=== PATIENT | male | born 1975 | race Caucasian/White ===

== ENCOUNTER 2016-11-16 09:41 | Outpatient (CLI) ==
[2015-09-03 14:43] VITALS: BMI 23.1
--- NOTE | 2016-11-16 10:24 | DI ---
EXAM: Five views of the lumbar spine. History: Lower back pain. Findings: No acute fracture or subluxation. Moderate to severe disc space narrowing at L4-L5 with endplate sclerosis and prominent anterior osteophytes. Mild to moderate disc space narrowing seen e lsewhere. Moderate facet hypertrophy at L5-S1. Scattered colonic stool. Impression: No acute osseous abnormality of the lumbar spine. Moderate to severe degenerative disc disease at L4-L5.
--- NOTE | 2016-11-16 10:38 | DI ---
EXAM: Radiographs, left foot HISTORY: Left foot pain. Bump on plantar arch. COMPARISON: 09/03/2015. TECHNIQUE: Three views. FINDINGS: Bone mineralization is normal. There is no acute fracture or dislocation. Small cortica dragan ossific fragment adjacent to the tip of the medial malleolus could relate to remote injury. The joint spaces are maintained. Small retrocalcaneal spur noted at the Achilles tendon insertion. No focal soft tissue abnormality is seen. IMPRESSION: 1. No abnormality in the region of the plantar arch. Correlate with MRI as warranted. 2. Small retrocalcaneal spur.
== END 2016-11-16 09:42 | disposition home or self-care (01) ==
LOC: RAD 09:41
PROVIDERS: ATTEND Nurse Practitioner Family
DX: M79.672 Pain in left foot (principal); M54.5 Low back pain

== ENCOUNTER 2017-01-10 11:51 | Outpatient (CLI) ==
[2015-09-03 14:43] VITALS: BMI 23.1
[2017-01-10 13:40] LABS: BASOPHILS % (AUTO) 0.6 % (0.0-3.0); EOSINOPHILS # (AUTO) 0.2 K/ul (0.0-0.7); EOSINOPHILS % (AUTO) 3.8 % (0.0-7.0); HEMATOCRIT 36.4 % (42.0-52.0); HEMOGLOBIN 12.1 g/dl (14.0-18.0); IMMATURE GRANULOCYTE % (AUTO) 0.2 % (0.0-5.0); LYMPHOCYTES # (AUTO) 1.7 K/uL (0.60-3.4); LYMPHOCYTES % (AUTO) 36.8 (10.0-50.0); MEAN CORPUSCULAR HEMOGLOBIN 29.9 pg (27.0-31.0); MEAN CORPUSCULAR HGB CONC 33.2 (31.8-35.4); MEAN CORPUSCULAR VOLUME 89.9 fl (80.0-94.0); MONOCYTES # (AUTO) 0.4 K/uL (0.4-2.0); MONOCYTES % (AUTO) 9.3 (0-10); NEUTROPHILS # (AUTO) 2.3 K/ul (2.0-6.9); NEUTROPHILS % (AUTO) 49.3; PLATELET COUNT 189 10^3/uL (140-440); RED BLOOD COUNT 4.05 10^6/ul (4.70-6.10); WHITE BLOOD COUNT 4.73 K/ul (4.2-10.2)
[2017-01-10 14:12] LABS: ALBUMIN 4.3 g/dL (3.4-5.0); ALBUMIN/GLOBULIN RATIO 1.65; ANION GAP 13.1; BILIRUBIN,TOTAL 0.59 mg/dL (0.00-1.20); BUN/CREATININE RATIO 14.28; CALCIUM 9.4 mg/dL (8.2-10.2); CREATININE 0.98 mg/dL (0.60-1.10); POTASSIUM 4.1 mmol/L (3.5-5.1); TOTAL PROTEIN 6.9 g/dL (6.4-8.2)
== END 2017-01-10 11:52 | disposition home or self-care (01) ==
LOC: LAB 11:51
PROVIDERS: ATTEND Nurse Practitioner Family
DX: M51.36 Other intervertebral disc degeneration, lumbar region (principal); M25.50 Pain in unspecified joint
CPT/HCPCS: 36415; 80053; 85025; 86038

== ENCOUNTER 2017-05-29 13:02 | Outpatient (CLI) ==
[2015-09-03 14:43] VITALS: BMI 23.1
[2017-05-29 13:12] LABS: BASOPHILS % (AUTO) 0.5 % (0.0-3.0); EOSINOPHILS # (AUTO) 0.1 K/ul (0.0-0.7); HEMATOCRIT 34.1 % (42.0-52.0); HEMOGLOBIN 11.3 g/dl (14.0-18.0); LYMPHOCYTES # (AUTO) 1.3 K/uL (0.60-3.4); MEAN CORPUSCULAR HEMOGLOBIN 29.9 pg (27.0-31.0); MEAN CORPUSCULAR HGB CONC 33.1 (31.8-35.4); MEAN CORPUSCULAR VOLUME 90.2 fl (80.0-94.0); MONOCYTES # (AUTO) 0.3 K/uL (0.4-2.0); MONOCYTES % (AUTO) 8.1 (0-10); NEUTROPHILS # (AUTO) 2.2 K/ul (2.0-6.9); NEUTROPHILS % (AUTO) 56.4; PLATELET COUNT 177 10^3/uL (140-440); RED BLOOD COUNT 3.78 10^6/ul (4.70-6.10); WHITE BLOOD COUNT 3.97 K/ul (4.2-10.2)
[2017-05-29 13:27] LABS: ALBUMIN/GLOBULIN RATIO 1.21; ANION GAP 12.4; BILIRUBIN,TOTAL 0.61 mg/dL (0.00-1.20); BUN/CREATININE RATIO 11.49; CHOL/HDL RATIO 3.3 (4.5-6.4); CREATININE 0.87 mg/dL (0.60-1.10); POTASSIUM 4.4 mmol/L (3.5-5.1); TOTAL PROTEIN 7.3 g/dL (6.4-8.2)
== END 2017-05-29 13:03 | disposition home or self-care (01) ==
LOC: LAB 13:02
PROVIDERS: ATTEND Nurse Practitioner Family
DX: M54.9 Dorsalgia, unspecified (principal); G89.29 Other chronic pain; Z79.899 Other long term (current) drug therapy
CPT/HCPCS: 36415; 80053; 80061; 85025

== ENCOUNTER 2017-05-31 10:38 | Outpatient (CLI) ==
[2015-09-03 14:43] VITALS: BMI 23.1
[2017-05-31 11:12] LABS: IMMATURE RETIC FRACTION 4.3; RETICULOCYTE % 0.7 %
[2017-05-31 11:57] LABS: FERRITIN 81.56 ng/mL (21.81-274.66); FOLATE 18.2 ng/mL (3.1-20.5)
== END 2017-05-31 10:39 | disposition home or self-care (01) ==
LOC: LAB 10:38
PROVIDERS: ATTEND Nurse Practitioner Family
DX: D64.9 Anemia, unspecified (principal)
CPT/HCPCS: 36415; 82607; 82728; 82746; 83540; 83550; 84466; 85045

== ENCOUNTER 2017-06-30 15:18 | Inpatient (IN) | payer OTHER ==
[2017-06-30 15:22] VITALS: BMI 22.5
[2017-06-30] MEDS ORDERED: SODIUM CHLORIDE 1,000 ML IV STA (15:26)
[2017-06-30] MEDS ORDERED: ZOFRAN 4 MG/2 ML IVP STA (15:26)
--- NOTE | 2017-06-30 16:42 | CT ---
EXAM: CT chest without contrast HISTORY: Cough COMPARISON: CT chest and 03/31/2014 TECHNIQUE: Serial axial images of the chest were obtained from the lung apices to the upper abdomen without contrast. These were viewed in multiple planes. FINDINGS: The thyroid is normal. The visualized vessels are unremarkable without aneurysm or stenos is. The heart is normal in size without pericardial effusion. There are no pathologically enlarged mediastinal or hilar lymph nodes. There is no pneumothorax or pleural effusion. There is mild right basilar atelectasis. There is no nodule, mass or ground-glass. The airways are patent. Soft tissues in the upper abdomen are unremarkable. There is degenerative disease of the spine. IMPRESSION: No acute cardiopulmonary process to account for patient's symptoms with minimal bibasilar atelectasis .
--- NOTE | 2017-06-30 16:46 | ED.PDOC ---
General ED Provider: Dr. ESTELITA MEDEIROS Chief Complaint: Nausea/Vomiting Stated Complaint: ABDOMINAL PAIN LEFT SIDED Time Seen by Physician: 15:30 (SEEN WITH STAFF AT ALL TIMES ) Mode of Arrival: Walk-In Information Source: Patient Exam Limitations: No limitations [facility] Nursing and Triage Documentation Reviewed and Agree: Yes (SEEN WITH MOHAN) GI Complaint Exam - Abdominal Pain Complaint/Exam Onset: Gradual Duration: CHRONIC PAIN Symptoms Are: Still present Timing: Constant Initial Severity: Moderate Current Severity: Mild Location of Pain: LLQ Radiates To: Reports: LLQ Character: Reports: Aching Aggravating: Reports: None Alleviating: Reports: None Associated Signs and Symptoms: Denies: Diaphoresis, Fever, Cough, Chest pain, Dizziness, Back pain, Constipation, Blood in stool, Dysuria, Urinary frequency, Decreased urine output, Decreased appetite, Discharge, Nausea, Vomiting, Diarrhea, Decreased activity Related History: Reports: Similar episode AAA Risk Factors: Reports: None Cardiac Risk Factors: Reports: None Testicular Torsion Risk Factors: Reports: None Surgical Obstruction Risk Factors: Reports: None Related Surgical History: Reports: None Abdominal Findings: Present: None Differential Diagnoses: Appendicitis, Bowel Obstruction, Constipation, Diverticulitis, Gastroenteritis, UTI Review of Systems - Review Of Systems Constitutional: Reports: No symptoms Eyes: Reports: No symptoms Ears, Nose, Mouth, Throat: Reports: No symptoms Respiratory: Reports: No symptoms Cardiac: Reports: No symptoms GI: Reports: Abdominal pain : Reports: No symptoms Musculoskeletal: Reports: No symptoms Skin: Reports: No symptoms Neurological: Reports: No symptoms Endocrine: Reports: No symptoms Hematologic/Lymphatic: Reports: No symptoms All Other Systems: Reviewed and Negative Past Medical History - Past Medical History Previously Healthy: Yes Endocrine: Reports: None Cardiovascular: Reports: None Respiratory: Reports: None Hematological: Reports: None Gastrointestinal: Reports: Other (Colitis ) Genitourinary: Reports: None Neuro/Psych: Reports: None Musculoskeletal: Reports: Back Pain Cancer: Reports: None - Surgical History General Surgical History: Reports: Back Surgery (x2), Other (NECK SURGERY X 2, R HAND SURGERY X 2) - Family History Family History: Reports: None - Social History Smoking Status: Former smoker, Light tobacco smoker Hx Substance Use: No Alcohol Screening: None - Immunizations Tetanus Shot up to Date: No Physical Exam - Physical Exam Appearance: Well-appearing, No pain distress, Well-nourished Eyes: FRANSISCA, EOMI, Conjunctiva clear ENT: Ears normal, Nose normal, Oropharynx normal Respiratory: Airway patent, Breath sounds clear, Breath sounds equal, Respirations nonlabored Cardiovascular: RRR, Pulses normal, No rub, No murmur GI/: Soft, Nontender, No masses, Bowel sounds normal, No Organomegaly Musculoskeletal: Normal strength, ROM intact, No edema, No calf tenderness Skin: Warm, Dry, Normal color Neurological: Sensation intact, Motor intact, Reflexes intact, Cranial nerves intact, Alert, Oriented Psychiatric: Affect appropriate, Mood appropriate Interpretation - Radiology Interpretation Radiology Interpretation By: Radiologist Radiology Results: Positive (OVARIAN CYSTS) Critical Care Note - Critical Care Note Total Time (mins): 0 Course - Course Hematology/Chemistry: 06/30/17 15:43 06/30/17 15:43 Orders, Labs, Meds: Lab Review 06/30/17 12 15:43 15:43 WBC 5.77 RBC 3.72 L Hgb 11.0 L Hct 32.4 L MCV 87.1 MCH 29.6 MCHC 34.0 RDW Coeff of Manan 12.3 Plt Count 175 Immature Gran % (Auto) 0.3 Neut % (Auto) 67.7 Lymph % (Auto) 24.8 [place] % (Auto) 5.5 Eos % (Auto) 1.4 Baso % (Auto) 0.3 Immature Gran # (Auto) 0.0 Neut # 3.9 Lymph # 1.4 [place] # 0.3 L Eos # 0.1 Baso # 0.0 Sodium 141 Potassium 3.6 Chloride 105 Carbon Dioxide 25 Anion Gap 14.6 BUN 14 Creatinine 0.85 Estimated GFR (MDRD) 98.00 BUN/Creatinine Ratio 16.47 Glucose 113 H Calcium 9.5 Total Bilirubin 0.56 AST 23 ALT 13 Alkaline Phosphatase 41 L Total Protein 7.0 Albumin 4.0 Globulin 3.0 Albumin/Globulin Ratio 1.33 Orders Category Date Time Status EKG-(ED ONLY) Stat CARDIO 06/30/17 15:26 Completed ED IV/MEDIPORT/POWERPORT .ONCE EMERGENCY 06/30/17 15:25 Active BLOOD CULTURE Stat LAB 06/30/17 16:30 Received CBC W/ AUTO DIFF Stat LAB 06/30/17 15:43 Completed COMPREHENSIVE METABOLIC PANEL Stat LAB 06/30/17 15:43 Completed RAPID FLU A/B Stat LAB 06/30/17 15:42 Ordered URINALYSIS C & S IF INDICATED Stat LAB 06/30/17 15:24 Uncollected 0.9 % Sodium Chloride [Saline Flush] MEDS 06/30/17 15:25 Active 1 syr IVF PRN PRN Ondansetron HCl/Pf [Zofran 4 mg/2 ml] MEDS 06/30/17 15:26 Discontinued 4 mg IVP ONCE STA Sodium Chloride 0.9% [Sodium Chloride] 1,000 ml MEDS 06/30/17 15:[address] ABDOMEN/PELVIS WO CONTRAST Stat RADS 06/30/17 15:[address] CHEST W/O CONTRAST Stat RADS 06/30/17 15:25 Completed Medications Generic Name Dose Route Start Last Admin Trade Name Freq PRN Reason Stop Dose Admin Sodium Chloride 1 syr 06/30/17 15:25 06/30/17 15:53 Saline Flush IVF 1 syr PRN PRN Administration To flush IV Discontinued Medications Generic Name Dose Route Start Last Admin Trade Name Freq PRN Reason Stop Dose Admin Sodium Chloride 1,000 mls @ 1,000 mls/hr 06/30/17 15:26 06/30/17 15:53 Sodium Chloride IV 06/30/17 16:25 1,000 mls/hr BOLUS STA Administration Ondansetron HCl 4 mg 06/30/17 15:26 06/30/17 15:53 Zofran 4 Mg/2 Ml IVP 06/30/17 15:27 4 mg ONCE STA Administration Vital Signs: Temp Pulse Resp BP Pulse Ox 06/30/17 15:18 96.7 F L 47 L 14 114/70 97 Departure - Departure Time of Disposition: 16:47 Disposition: HOME SELF-CARE Discharge Problem: Abdominal pain Qualifiers: Abdominal location: left lower quadrant Qualified Code(s): R10.32 - Left lower quadrant pain Instructions: Ovarian Cyst (ED), Abdominal Pain (ED) Condition: Good Pt referred to PMD for follow-up: Yes Allergies/Adverse Reactions: Allergies No Known Allergies Allergy (Verified 06/30/17 15:21) Home Medications: Ambulatory Orders Diphenhydramine HCl 50 mg PO DAILY 03/31/14 Mesalamine [Pentasa] 1,000 mg PO TID 03/31/14 Multivitamin [Multi Vitamin Daily] 1 each PO DAILY 03/31/14 Orphenadrine Citrate [Norflex] 100 mg PO BID 03/31/14 Oxycodone HCl/Acetaminophen [Oxycodone-Acetaminophen 10-325] 1 each PO QID 03/31 Simethicone 125 mg PO BID 03/31/14 Hydrocodone/Acetaminophen [[place] 10-325 Tablet] 1 each PO Q6HR PRN #12 tablet Diphenhydramine HCl [Benadryl] 25 mg PO DAILY #2 01/10/17 Mesalamine [Pentasa] 500 mg PO QID 01/10/17 Oxycodone HCl/Acetaminophen [Oxycodone-Acetaminophen 10-325] 1 each PO 3-4XD PRN 01/10/17
--- NOTE | 2017-06-30 16:49 | CT ---
EXAM: CT abdomen pelvis without intravenous contrast 06/30/2017. Sagittal and coronal reformatted i mages obtained HISTORY: Abdominal pain COMPARISON: None. FINDINGS: The liver and gallbladder show no acute abnormality. The adrenal glands and kidneys show no acute abnormality. 2 mm nonobstructive nephrolithiasis at the lower pole of the right kidney. The spleen and pancreas show no acute abnormality. There is no evidence of bowel obstruction. The appendix is not visualized. Unremarkable urinary arabella dder. No free air or free fluid. There is multilevel chronic degenerative disc disease. No acute os seous abnormality. IMPRESSION: 1. No urinary or bowel obstruction. 2. Appendix not visualized. 3. No acute inflammatory process identified within the limitation of a noncontrast enhanced examinat ion.
--- NOTE | 2017-06-30 17:23 | ED.PDOC ---
General ED Provider: Dr. ESTELITA MEDEIROS Chief Complaint: Nausea/Vomiting Stated Complaint: NAUSEA, VOMITING , WEAKNESS Time Seen by Physician: 15:20 Mode of Arrival: Walk-In Information Source: Patient Exam Limitations: No limitations [facility] and Triage Documentation Reviewed and Agree: Yes Miscellaneous Complaint Exam - Complex/Multi-System Complaint/Exam Onset/Duration: 1 DAY HISTORY OF WEAKNESS INTERMITTENT VOMITING, Symptoms Are: Still present (NO VOMITING) Episodes Lasting: Seconds Initial Severity: Mild Current Severity: Mild Location of Pain: 0 Pain Radiates to: 0 Character: 0 Aggravatin Alleviatin Associated Signs and Symptoms: Reports: Weakness, Cough, Nausea, Vomiting, Abdominal pain, Decreased oral intake. Denies: Decreased responsiveness, Confusion, Agitation, Dizziness, Syncope, Headache, Short of air, Wheezing, Hemoptysis, Chest pain, Palpitations, Edema, Diarrhea, Back pain, Dysuria, Hematemesis, Melena, Fever, Diaphoresis, Immunocompromised, Anticoagulation Therapy, Recent medication changes, Indwelling medical assistant ob gyn, Prior MRSA, Prior VRE, Recent trauma, Remote trauma Recent Echo/LV Function: No Respiratory Distress: None JVD Present: No Tachypnea Present: No Stridor Present: No Abdominal Findings: Present: Normal findings Glascow Coma Scale (see protocol): 15 Meningeal Signs Positive: No Focal Weakness: Present: None Focal Sensory Loss: Present: None Gait: Normal Gag Reflex Present: Yes Babinski Sign: Negative Right, Negative Left Skin Findings: Present: Normal findings Joint Swelling Present: No In-Dwelling Device Present: No Differential Diagnosis: Metabolic Abnormality (OPIATE TOXCITY) Quality Indicators for Cardiac Chest Pain: EKG in 10min. Quality Indicators for AMI: EKG in 10min. Quality Indicator For Non-Traumatic Chest Pain/Syncope: EKG Performed Review of Systems - Review Of Systems Constitutional: Reports: Malaise, Weakness Eyes: Reports: No symptoms Ears, Nose, Mouth, Throat: Reports: No symptoms Respiratory: Reports: Cough Cardiac: Reports: No symptoms GI: Reports: Abdominal pain, Vomiting : Reports: No symptoms Musculoskeletal: Reports: No symptoms Skin: Reports: No symptoms Neurological: Reports: No symptoms Endocrine: Reports: No symptoms Hematologic/Lymphatic: Reports: No symptoms All Other Systems: Reviewed and Negative Past Medical History - Past Medical History Previously Healthy: Yes Endocrine: Reports: None Cardiovascular: Reports: None Respiratory: Reports: None Hematological: Reports: None Gastrointestinal: Reports: Other (Colitis ) Genitourinary: Reports: None Neuro/Psych: Reports: None Musculoskeletal: Reports: Back Pain Cancer: Reports: None - Surgical History General Surgical History: Reports: Back Surgery (x2), Other (NECK SURGERY X 2, R HAND SURGERY X 2) - Family History Family History: Reports: None - Social History Smoking Status: Former smoker, Light tobacco smoker Hx Substance Use: No Alcohol Screening: None - Immunizations Tetanus Shot up to Date: No Physical Exam - Physical Exam Appearance: Ill-appearing Ill-appearing: Moderate Pain Distress: Mild Eyes: FRANSISCA, EOMI, Conjunctiva clear ENT: Dry mucosa Respiratory: Airway patent, Breath sounds clear, Breath sounds equal, Respirations nonlabored Cardiovascular: RRR, Pulses normal, No rub, No murmur GI/: Soft, Nontender, No masses, Bowel sounds normal, No Organomegaly Musculoskeletal: Normal strength, ROM intact, No edema, No calf tenderness Skin: Warm, Dry, Normal color Neurological: Sensation intact, Motor intact, Reflexes intact, Cranial nerves intact, Alert, Oriented Psychiatric: Affect appropriate, Mood appropriate Interpretation - Radiology Interpretation Radiology Interpretation By: Radiologist Radiology Results: No acute changes - Certified Surgical Technologist Rate: Jorge Rhythm: Sinus - EKG Interpretation Rate: Jorge Rhythm: Sinus Rate: Jorge Rhythm: Sinus Physician Notification - Case Discussed Physician Notified: PMD Time of Notification: 17:24 Admit To: SCU Critical Care Note - Critical Care Note Total Time (mins): 0 Course - Course Hematology/Chemistry: 06/30/17 15:43 06/30/17 15:43 Orders, Labs, Meds: Lab Review 06/30/17 06/30/17 15:43 15:43 WBC 5.77 RBC 3.72 L Hgb 11.0 L Hct 32.4 L MCV 87.1 MCH 29.6 MCHC 34.0 RDW Coeff of Manan 12.3 Plt Count 175 Immature Gran % (Auto) 0.3 Neut % (Auto) 67.7 Lymph % (Auto) 24.8 [place] % (Auto) 5.5 Eos % (Auto) 1.4 Baso % (Auto) 0.3 Immature Gran # (Auto) 0.0 Neut # 3.9 Lymph # 1.4 [place] # 0.3 L Eos # 0.1 Baso # 0.0 Sodium 141 Potassium 3.6 Chloride 105 Carbon Dioxide 25 Anion Gap 14.6 BUN 14 Creatinine 0.85 Estimated GFR (MDRD) 98.00 BUN/Creatinine Ratio 16.47 Glucose 113 H Calcium 9.5 Total Bilirubin 0.56 AST 23 ALT 13 Alkaline Phosphatase 41 L Total Protein 7.0 Albumin 4.0 Globulin 3.0 Albumin/Globulin Ratio 1.33 Orders Category Date Time Status EKG-(ED ONLY) Stat CARDIO 06/30/17 15:26 Completed ED IV/MEDIPORT/POWERPORT .ONCE EMERGENCY 06/30/17 15:25 Active BLOOD CULTURE Stat LAB 06/30/17 16:30 Received CBC W/ AUTO DIFF Stat LAB 06/30/17 15:43 Completed COMPREHENSIVE METABOLIC PANEL Stat LAB 06/30/17 15:43 Completed CREATINE KINASE Stat LAB 06/30/17 17:13 Ordered DRUG SCREEN (RAPID FOR ED) [DRUG SCREEN, URINE, RAPID] LAB 06/30/17 17:16 Uncollected Stat RAPID FLU A/B Stat LAB 06/30/17 15:45 Received TROPONIN I Stat LAB 06/30/17 17:13 Ordered URINALYSIS C & S IF INDICATED Stat LAB 06/30/17 16:57 Received URINE DRUG SCREEN (RAPID FOR ED) [DRUG SCREEN, URINE, LAB 06/30/17 16:57 Received RAPID] Stat 0.9 % Sodium Chloride [Saline Flush] MEDS 06/30/17 15:25 Active 1 syr IVF PRN PRN Ondansetron HCl/Pf [Zofran 4 mg/2 ml] MEDS 06/30/17 15:26 Discontinued 4 mg IVP ONCE STA Sodium Chloride 0.9% [Sodium Chloride] 1,000 ml MEDS 06/30/17 15:[address] ABDOMEN/PELVIS WO CONTRAST Stat RADS 06/30/17 15:[address] CHEST W/O CONTRAST Stat RADS 06/30/17 15:25 Completed Medications Generic Name Dose Route Start Last Admin Trade Name Freq PRN Reason Stop Dose Admin Sodium Chloride 1 syr 06/30/17 15:25 06/30/17 15:53 Saline Flush IVF 1 syr PRN PRN Administration To flush IV Discontinued Medications Generic Name Dose Route Start Last Admin Trade Name Freq PRN Reason Stop Dose Admin Sodium Chloride 1,000 mls @ 1,000 mls/hr 06/30/17 15:26 06/30/17 15:53 Sodium Chloride IV 06/30/17 16:25 1,000 mls/hr BOLUS STA Administration Ondansetron HCl 4 mg 06/30/17 15:26 06/30/17 15:53 Zofran 4 Mg/2 Ml IVP 06/30/17 15:27 4 mg ONCE STA Administration Vital Signs: Temp Pulse Resp BP Pulse Ox 06/30/17 15:18 96.7 F L 47 L 14 114/70 97 Departure - Departure Time of Disposition: 17:25 Disposition: ADMITTED INPATIENT Discharge Problem: Nausea, Vomiting Abdominal pain Qualifiers: Abdominal location: left lower quadrant Qualified Code(s): R10.32 - Left lower quadrant pain Instructions: Ovarian Cyst (ED), Abdominal Pain (ED) Condition: Good Pt referred to PMD for follow-up: Yes Allergies/Adverse Reactions: Allergies No Known Allergies Allergy (Verified 06/30/17 15:21) Home Medications: Ambulatory Orders Diphenhydramine HCl 50 mg PO DAILY 03/31/14 Mesalamine [Pentasa] 1,000 mg PO TID 03/31/14 Multivitamin [Multi Vitamin Daily] 1 each PO DAILY 03/31/14 Orphenadrine Citrate [Norflex] 100 mg PO BID 03/31/14 Oxycodone HCl/Acetaminophen [Oxycodone-Acetaminophen 10-325] 1 each PO QID 03/31 Simethicone 125 mg PO BID 03/31/14 Hydrocodone/Acetaminophen [[place] 10-325 Tablet] 1 each PO Q6HR PRN #12 tablet Diphenhydramine HCl [Benadryl] 25 mg PO DAILY #2 01/10/17 Mesalamine [Pentasa] 500 mg PO QID 01/10/17 Oxycodone HCl/Acetaminophen [Oxycodone-Acetaminophen 10-325] 1 each PO 3-4XD PRN 01/10/17 Disposition Discussed With: Patient, Family
[2017-06-30] MEDS ORDERED: ROCEPHIN 2 GM in SODIUM CHLORIDE 50 ML IV STA (17:27)
[2017-06-30] MEDS ORDERED: ROCEPHIN ONE (17:30)
[2017-07-01] MEDS: TOBRAMYCIN OP SCH ×3 (01:10→06:25)
[2017-07-01] MEDS: DEXAMETHASONE OP SCH ×3 (01:10→06:25)
[2017-07-01] MEDS: SODIUM CHLORIDE 1,000 ML IV SCH ×2 (01:37→15:44)
[2017-07-01] MEDS ORDERED: TOBREX 0.3% OP ONE (01:52)
[2017-07-01] MEDS ORDERED: DEXAMETHASONE OP SCH (09:00)
[2017-07-01] MEDS ORDERED: TOBRAMYCIN OP SCH (09:00)
[2017-07-01] MEDS ORDERED: LIBRIUM PO PRN (14:29)
[2017-07-01] MEDS ORDERED: BENADRYL PO SCH (15:00)
[2017-07-01] MEDS ORDERED: NEURONTIN ONE ×2 (15:39→20:23)
[2017-07-01] MEDS: MESALAMINE PO SCH ×2 (15:43→21:27)
[2017-07-01] MEDS: NON-FORMULARY MEDICATION (Gabapentin [Neurontin] 600 MG) PO SCH ×2 (15:43→21:26)
[2017-07-01] MEDS ORDERED: BENADRYL PO PRN (19:26)
[2017-07-01] MEDS ORDERED: MYLICON ONE (20:24)
[2017-07-01] MEDS ORDERED: NEURONTIN PO SCH (21:00)
[2017-07-01] MEDS ORDERED: SIMETHICONE 125 MG PO SCH (21:00)
[2017-07-01] MEDS ORDERED: MYLICON PO STA (21:10)
[2017-07-01] MEDS: LIBRIUM PO SCH (21:27)
[2017-07-02] MEDS: SODIUM CHLORIDE 1,000 ML IV SCH ×2 (06:27→21:01)
[2017-07-02] MEDS ORDERED: MYLICON PO SCH (08:00)
[2017-07-02] MEDS: MESALAMINE PO SCH ×2 (08:59→20:18)
[2017-07-02] MEDS: MULTIVITAMIN TABLET PO SCH (09:00)
[2017-07-02] MEDS ORDERED: MULTIVITAMIN TABLET PO SCH (09:00)
[2017-07-02] MEDS: BALANCED B-100 PO SCH (09:00)
[2017-07-02] MEDS: MYLICON PO SCH ×2 (09:01→17:02)
[2017-07-02] MEDS: NEURONTIN PO SCH ×3 (09:01→20:18)
[2017-07-02] MEDS: LIBRIUM PO SCH ×2 (09:03→20:18)
[2017-07-03] MEDS: BALANCED B-100 PO SCH (10:22)
[2017-07-03] MEDS: MULTIVITAMIN TABLET PO SCH (10:23)
[2017-07-03] MEDS: MESALAMINE PO SCH (10:23)
[2017-07-03] MEDS: NEURONTIN PO SCH ×2 (10:23→15:41)
[2017-07-03] MEDS: MYLICON PO SCH ×2 (10:23→17:45)
[2017-07-03] MEDS: LIBRIUM PO SCH (10:23)
[2017-07-03 17:50] VITALS: BP 130/86; TEMP 97.9
--- NOTE | 2017-07-20 15:40 | HP ---
DATE OF SERVICE: 06/30/17 CHIEF COMPLAINT: Nausea and vomiting. HISTORY OF PRESENT ILLNESS: This is a 42 year old male who started vomiting just one hour ago. He reported that while he was eating he was vomiting nonbilious. No diarrhea. Severe headache. The patient's was recently diagnosed with C-diff. He came to the emergency room and was seen by Dr. Renner. The patient had a history of colitis. In the emergency room the white count was 11.0, ABG showed a ph of 7.4, PCO2 35, PO2 136. Toxicology was positive for marijuana. CT of the abdomen and pelvis and chest was negative. The EKG was showing severe bradycardia of 42-43. At that time, the patient was admitted to the hospital for IV fluids and the treatment for intractable nausea , vomiting and dehydration, severe sinus bradycardia, symptomatic and the the patient was having some lightheadedness from the heart rate. REVIEW OF SYSTEMS: CONSTITUTIONAL: Weakness, tiredness, lightheadedness. No fever, no chills. HEENT: Normal. ENDOCRINE: No weight gain; no weight loss. CVS: No chest pain. No PND, no orthopnea. No shortness of breath. No PND, no orthopnea. RESPIRATORY: No cough, no congestion. No hemoptysis. GI: Nausea, vomiting and abdominal pain. No melena. : No hematuria. No polyuria. MUSCULOSKELETAL: No joint swelling. PSYCHIATRIC: Not anxious. No depression. No suicidal thoughts. No homicidal thoughts. SKIN: Intact, no open lesions. PAST MEDICAL HISTORY: Headaches, ulcerative colitis and takes some Mesalamine. Osteoarthritis, DJD of the spine, nicotine use, marijuana use. PAST SURGICAL HISTORY: Back surgery when he was 19 years old. Carpal tunnel surgery, back surgery times six, eye surgery, cervical fusion and lumbar laminectomy. Retinal replacement. PERSONAL HISTORY: The patient does smoke. . FAMILY HISTORY: Not significant. HOME MEDICATIONS: Multivitamin, Simethicone, Benadryl, Neurontin, Tizanidine, Acetaminophen with Codeine, Mesalamine, B Complex and Librium. ALLERGIES: No known drug allergies. PHYSICAL EXAMINATION: GENERAL: Sick looking, lying in the bed. V/S: Blood pressure is 114/70, respiratory 14, heart rate 47, temperature 96.7, saturation 97. HEENT: Atraumatic, normocephalic. No scleral icterus. Mucosa dry. NECK: Supple. No JVD, no bruit. No lymphadenopathy. No thyromegaly. HEART: Sinus les. S1, S2 normal. No murmur. No cyanosis or clubbing. No ascites. LUNGS: Clear to auscultation. No rales or rhonchi. ABDOMEN: Soft, nontender. Bowel sounds are active. No CVA tenderness. No rigidity or guarding. EXTREMITIES: No cyanosis, clubbing or pedal edema. MUSCULOSKELETAL: Normal joints, no swelling. NEUROLOGIC: Normal. SKIN: Intact; no open lesions. LYMPHATIC: No lymph nodes palpable. LABS: White count 5.77, hemoglobin 11.0, hematocrit 32.4, platelet count 175. ABG with pH 7.47, PCO2 35.2, PO2 136, sodium 141, potassium 3.5, chloride 105, bicarb 25, BUN 14, creatinine 0.85, glucose 113. ASSESSMENT: 1. INTRACTABLE NAUSEA 2. ACUTE GASTRITIS 3. DEHYDRATION 4. SEVERE BRADYCARDIA, SINUS LES 5. WENT OFF OF HIS MEDICATION TIZANIDINE, WE CAN'T GIVE THAT. WE ARE HOLDING THE MEDICATION 6. HYPERTENSION 7. DYSLIPIDEMIA 8. DJD OF THE SPINE PLAN: 1. Stop the Tizanidine. 2. Continue the IV fluids. 3. Continue the home medications. 4. Will follow up with the patient in daily rounds. TIME SPENT: MORE THAN 70 minutes today MTDD
--- NOTE | 2017-07-21 09:42 | PN ---
DATE OF SERVICE: 07/01/17 SUBJECTIVE: The patient was admitted with sinus bradycardia symptomatic. Heart rate is still 44 to 45. REVIEW OF SYSTEMS: CONSTITUTIONAL: No fever, no chills. Weakness and tiredness. HEENT: Normal. ENDOCRINE: No weight gain, no weight loss. CVS: No angina symptoms. No CHF symptoms. No palpitations. No atypical chest pain for CAD. No shortness of breath. No PND, no orthopnea. RESPIRATORY: No cough, no hemoptysis. GI: No nausea, no vomiting. No abdominal pain. Able to eat. : No hematuria. No polyuria. MUSCULOSKELETAL: No joint swelling. PSYCHIATRIC: Not anxious. No depression. No suicidal thoughts. No homicidal thoughts. SKIN: Intact. No rash. PHYSICAL EXAMINATION: V/S: Blood pressure 115/56, respiratory rate 17, heart rate 52, temperature 98.2 with saturation 98%. HEENT: Normocephalic, atraumatic. Mucosa dry. NECK: Supple. No JVD, no carotid bruit. No lymphadenopathy. LUNGS: Clear to auscultation. No rales or rhonchi. HEART: S1, S2 normal. No S3. No murmur, gallop or regurgitation. ABDOMEN: Soft, nontender. Bowel sounds active. No rigidity. No rebound or guarding. No CVA tenderness. EXTREMITIES: No clubbing, cyanosis or pedal edema. MUSCULOSKELETAL: No joint swelling. NEUROLOGIC: Awake, alert, oriented times three. No focal deficit. LYMPHATIC: No lymph nodes palpable. SKIN: Intact. LABS: WBC 4.54, hgb 10.8, hct 32.3, plt count 153, sodium 142, potassium 4.1, chloride 109, bicarb 23, BUN 11, creatinine 0.84 and glucose 144. ASSESSMENT: 1. Symptomatic sinus chuckie 2. Gastroenteritis 3. Dehydration 4. Ulcerative colitis 5. Hypertension 6. Dyslipidemia PLAN: 1. Continue IV fluids 2. Resume home medication, not the Tizanidine 3. Out of bed to chair activity as tolerated Will follow the patient in daily rounds. TIME SPENT: More than 35 minutes MTDD
--- NOTE | 2017-07-25 12:52 | DS ---
DATE OF SERVICE: 07/03/17 FINAL DIAGNOSIS: 1. SINUS BRADYCARDIA ASYMPTOMATIC 2. STATUS POST GASTROENTERITIS 3. DEHYDRATION 4. HYPERTENSION LABILE 5. OSTEOARTHRITIS 6. DJD OF THE SPINE 7. ULCERATIVE COLITIS PLAN: 1. Discharge the patient home. 2. Holter monitoring in the morning. 3. Stop Tizanidine. 4. Stop medical marijuana for the time being until the patient's bradycardia being evaluated properly. 5. Continue the rest of the home medications of Tylenol with Codeine, Librium, Benadryl, Neurontin, Mesalamine, Vitamin tablets, Simethicone and Vitamin B complex tablets. 6. Activity as much as tolerated. 7. Diet: Cardiac and healthy. DISEASE SPECIFIC EDUCATION: About the sinus bradycardia, symptomatic bradycardia and needing pacemaker has been discussed and he verbalized understanding. HOSPITAL COURSE: Dell Núñez who is a 42 year old male with multiple medical problems came to the emergency room with nausea, vomiting, not able to keep anything down, dizziness and headache. The patient's was recently in the hospital and diagnosed with colitis, so the patient was scared and came to the emergency room. He was seen by the emergency room physician. Hemoglobin was 11 , glucose 113, heart rate was 47. At that time, the patient was admitted to the hospital for dehydration, asymptomatic sinus bradycardia. He was started on IV fluids. The patient's medication was reviewed and it came to my attention that the Tizanidine can do the severe bradycardia, so it was being held. Urine drug screen was done, which was positive for the marijuana and the patient does take medical marijuana for the chronic lower back pain. Gradually with IV fluids, the patient was much awake, alert and up and about. He was walking and did not feel any dizziness. Resting heart rate was always in the 46 to below 50, but when he was active and walking it was going up to 54 to 60. Planning for the Holter monitoring as an outpatient on the patient. He will follow up with me within one to two days. As the patient was feeling to go home at this time. He was discharged to home. TIME SPENT: MORE THAN 65 MINUTES TODAY SUMEET
== END 2017-07-03 20:02 | disposition home or self-care (01) | DRG 392 ==
LOC: ED 15:18 → SCU 17:29
PROVIDERS: ADMIT Emergency Medicine; ATTEND Emergency Medicine
DX: K52.9 Noninfective gastroenteritis and colitis, unspecified (principal); K51.90 Ulcerative colitis, unspecified, without complications; R00.1 Bradycardia, unspecified; R42 Dizziness and giddiness; E86.0 Dehydration; I10 Essential (primary) hypertension; E78.5 Hyperlipidemia, unspecified; M19.90 Unspecified osteoarthritis, unspecified site; M47.9 Spondylosis, unspecified; R53.1 Weakness; R10.32 Left lower quadrant pain; R11.2 Nausea with vomiting, unspecified; R05 Cough; F12.90 Cannabis use, unspecified, uncomplicated; Z79.899 Other long term (current) drug therapy
CPT/HCPCS: 36415; 80053; 80306; 81001; 82550; 82553; 82803; 82962; 83605; 84146; 84484; 85025; 87040; 87081; 87086; 87804; 93005; 93010; 96360; 96361; 96375; 99285

== ENCOUNTER 2017-07-05 08:42 | Outpatient (CLI) | payer OTHER ==
--- NOTE | 2017-07-07 08:11 | HOLTER ---
PATIENT INFORMATION AND COMMENTS Attending Physician: SEGUNDO OSULLIVAN Indications: BRADYCARDIA __ Patient Medications: GABAPENTIN, NEURONTIN, TIZANIDINE, ACETAMINOPHEN __ Pre-procedure Summary: Protocol: Standard Heart Rate Started: 07/05/17907 Minimum: 40 BPM Weight: 185 LBS Ended: 07/06/17907 Maximum: 129 BPM Height: 75" Duration: 24 HOURS Average: 61 BPM _ INTERPRETATIONS/OBSERVATIONS: 1. BASIC RHYTHM: SINUS, RATE 40 BPM TO 130 BPM, AVERAGE 60 BPM 2. RARE PAC'S AND PVC'S 3. NO ST-T WAVE CHANGES FROM BASELINE 4. NO CORRELATION WITH ACTIVITY LOG MTDD
== END 2017-07-05 08:43 | disposition home or self-care (01) ==
LOC: CAR 08:42
PROVIDERS: ATTEND Emergency Medicine
DX: R00.1 Bradycardia, unspecified (principal)
CPT/HCPCS: 93227

== ENCOUNTER 2017-07-21 14:26 | Outpatient (CLI) | END 2017-07-21 14:27 | disposition home or self-care (01) | LOC: LAB 14:26 | PROVIDERS: ATTEND Nurse Practitioner Family | DX: D50.8 Other iron deficiency anemias (principal) | CPT/HCPCS: 36415; 82607; 82728; 82746; 83540; 83550; 84466; 85045 ==

== ENCOUNTER 2017-07-27 10:36 | Emergency (ER) ==
[2017-07-27 10:42] VITALS: BP 114/71; TEMP 97.4; BMI 20.7
--- NOTE | 2017-07-27 11:14 | ED.PDOC ---
General ED Provider: Dr. MONICA GAMING Chief Complaint: Chest Pain Stated Complaint: Chest, epigastric pain Time Seen by Physician: 11:30 Mode of Arrival: Walk-In Information Source: Patient, Family Exam Limitations: No limitations Primary Care Provider: SEGUNDO [facility]AN[facility] Nursing and Triage Documentation Reviewed and Agree: Yes Reviewed sepsis parameters & appropriate labs ordered?: Yes System Inflammatory Response Syndrome: Not Applicable Sepsis Protocol: For patient's 13 years and over: Temp is 96.8 and below OR 101 and greater Pulse >90 BPM Resp >20/minute Acutely Altered Mental Status Are patient's symptoms suggestive of a new infection, such as: -Pneumonia -Skin, Soft Tissue -Endocarditis -UTI -Bone, Joint Infection -Implantable Device -Acute Abdominal Infection -Wound Infection -Meningitis -Blood Stream Catheter Infection -Unknown Review of Systems - Review Of Systems Constitutional: Reports: Loss of appetite Respiratory: Reports: No symptoms Cardiac: Reports: Chest pain (Epigastric pain) GI: Reports: No symptoms, Diarrhea (for three days) All Other Systems: Reviewed and Negative Past Medical History - Past Medical History Previously Healthy: Yes Endocrine: Reports: None Cardiovascular: Reports: None Respiratory: Reports: None Hematological: Reports: None Gastrointestinal: Reports: Other (Colitis ) Genitourinary: Reports: None Neuro/Psych: Reports: None Musculoskeletal: Reports: Back Pain Cancer: Reports: None - Surgical History General Surgical History: Reports: Back Surgery (x2), Other (NECK SURGERY X 2, R HAND SURGERY X 2) - Family History Family History: Reports: None - Social History Smoking Status: Former smoker, Light tobacco smoker Hx Substance Use: No Alcohol Screening: None Physical Exam - Physical Exam Appearance: Well-appearing Respiratory: Airway patent, Breath sounds equal Cardiovascular: RRR, Pulses normal, Bradycardia (Pt history of bradycardia) Musculoskeletal: Normal strength, ROM intact Skin: Warm, Dry, Normal color Neurological: Sensation intact, Motor intact Psychiatric: Affect appropriate, Mood appropriate Interpretation - Radiology Interpretation Radiology Interpretation By: Radiologist Radiology Results: Positive Exam Interpreted: CT Scan Xray Comments: Abd/Pelvis early colitis Radiology Interpretation By: Radiologist (CT abdomen/pelvis suggestive of early colitis) - EKG Interpretation Time of EKG #1: 11:08 Rate: Jorge (patient hx jorge - has referral for eval) Rhythm: Sinus Ectopy: None [place]: NL ST Segment: Normal Interpretation: No acute changes Critical Care Note - Critical Care Note Total Time (mins): 35 Course - Course Hematology/Chemistry: 07/27/17 11:15 07/27/17 11:15 Orders, Labs, Meds: Lab Review 07/27/17 07/27/17 11:15 11:15 WBC 3.95 L RBC 3.94 L Hgb 11.6 L Hct 33.5 L MCV 85.0 MCH 29.4 MCHC 34.6 RDW Coeff of Manan 12.4 Plt Count 202 Immature Gran % (Auto) 0.3 Neut % (Auto) 63.4 Lymph % (Auto) 29.9 Atkinson % (Auto) 5.6 Eos % (Auto) 0.5 Baso % (Auto) 0.3 Immature Gran # (Auto) 0.0 Neut # 2.5 Lymph # 1.2 Atkinson # 0.2 L Eos # 0.0 Baso # 0.0 Sodium 144 Potassium 3.5 Chloride 111 H Carbon Dioxide 25 Anion Gap 11.5 BUN 13 Creatinine 0.92 Estimated GFR (MDRD) 90.00 BUN/Creatinine Ratio 14.13 Glucose 80 Calcium 9.7 Total Bilirubin 0.8 AST 21 ALT 23 Alkaline Phosphatase 42 L Troponin I 0.0110 Total Protein 7.4 Albumin 4.0 Globulin 3.4 Albumin/Globulin Ratio 1.18 Orders Category Date Time Status EKG-(ED ONLY) Stat CARDIO 07/27/17 11:22 Completed NPO REMINDER: IMAGING ONCE CARE 07/27/17 12:20 Active CBC W/ AUTO DIFF Stat LAB 07/27/17 11:15 Completed COMPREHENSIVE METABOLIC PANEL Stat LAB 07/27/17 11:15 Completed TROPONIN I Stat LAB 07/27/17 11:15 Completed CHEST, 1V AP ONLY Stat RADS 07/27/17 11:[address] ABDOMEN/PELVIS W CONTRAST Stat RADS 07/27/17 12:19 Completed Vital Signs: Temp Pulse Resp BP Pulse Ox 07/27/17 10:37 97.4 F L 60 24 114/71 98 SUNITA Risk Score USNITA Risk Score: Risk Score Odds of by 30D 0 0.1 (0.1-0.2) 1 0.3 (0.2-0.3) 2 0.4 (0.3-0.5) 3 0.7 (0.6-0.9) 4 1.2 (1.0-1.5) 5 2.2 (1.9-2.6) 6 3.0 (2.5-3.6) 7 4.8 (3.8-6.1) Departure - Departure Time of Disposition: 14:16 Disposition: HOME SELF-CARE Discharge Problem: Colitis Instructions: Colitis (ED) Condition: Good Pt referred to PMD for follow-up: Yes IPMP verified?: No (Narcotic not prescribed) Additional Instructions: Take flagyl as prescribed; follow up with primary care - Dr. Solano will see you tomorrow in clinic. Prescriptions: Metronidazole [Flagyl] 500 mg PO TID #21 tablet Prednisone 20 mg PO ONCE #18 tablet Allergies/Adverse Reactions: Allergies No Known Allergies Allergy (Verified 06/30/17 15:21) Home Medications: Ambulatory Orders Simethicone 125 mg PO BID 03/31/14 Diphenhydramine HCl [Benadryl] 50 mg PO DAILY PRN #2 01/10/17 Mesalamine [Apriso] 2 cap PO BID 07/01/17 Metronidazole [Flagyl] 500 mg PO TID #21 tablet 07/27/17 Multivitamin with Iron [Daily Vitamin + Iron] 1 each PO DAILY 07/27/17 Omeprazole 20 mg PO DAILY 07/27/17 Prednisone 20 mg PO ONCE #18 tablet 07/27/17 Disposition Discussed With: Patient
--- NOTE | 2017-07-27 11:44 | DI ---
EXAM: CHEST FRONTAL AND LATERAL VIEWS HISTORY: Chest pain. COMPARISON: FINDINGS: Heart size and mediastinal contour within normal limits. No acute infiltrates. Normal vascularity with no pleural fluid or pneumothorax. The bony thorax has no acute finding. IMPRESSION: No acute process.
--- NOTE | 2017-07-27 13:27 | CT ---
EXAM: CT ABDOMEN AND PELVIS HISTORY: EXAM: CT ABDOMEN AND PELVIS HISTORY: Abdominal discomfort, concern for enterocolitis TECHNIQUE: CT abdomen and pelvis with intravenous contrast. Images were reconstructed using 5 mm sec tion thickness. Reformations were prepared. 75 mL Omnipaque. COMPARISON: 06/30/2017 FINDINGS: No focal hepatic or splenic lesions. No gallbladder is definitely seen. Pancreas and adrenal glands are within normal limits. No hydronephrosis. Normal enhancement of the kidneys. Normal abdominal aorta. Stomach is within normal limits. General bowel gas pattern is normal. There is increased submucosal fat deposition within the descending and sigmoid colon suggesting previous bouts of inflammation. P robably early inflammation of the transverse and right colon. Small bowel grossly unremarkable. Tra ce pelvic ascites. Urinary bladder and prostate within normal limits. No ventral abdominal wall hernia. The bones reveal degenerative disc and facet disease of the lower lumbar spine. Lung bases are clear. No pneumoperitoneum. IMPRESSION: Probably early colitis involving the ascending and transverse portions. Trace pelvic asc ites. No intra-abdominal abscess or bowel obstruction. No free air.
== END 2017-07-27 14:35 | disposition home or self-care (01) ==
LOC: ED 10:36
DX: K52.9 Noninfective gastroenteritis and colitis, unspecified (principal); R00.1 Bradycardia, unspecified; Z72.0 Tobacco use
CPT/HCPCS: 36415; 80053; 84484; 85025; 93005; 93010; 99284

== ENCOUNTER 2017-08-14 08:41 | Outpatient (CLI) ==
[2017-08-11 08:21] VITALS: BMI 20.7
--- NOTE | 2017-08-14 10:54 | MRI ---
EXAM: MRI cervical spine without IV contrast. DATE: 14 August 2017. HISTORY: Cervical radiculopathy. Upper neck pain and bases skull pain. Previous neck operations x2 . TECHNIQUE: Sagittal and axial T1W and T2W sequences of the cervical spine along with sagittal IR and coronal T2W sequences were obtained using 1.2 Margarette magnet. No IV contrast. COMPARISON: CT C-spine 03/31/2014. FINDINGS: Slight rightward curvature the mid cervical spine is noted. Previous anterior discectomy and interbody fusion are observed at C6-7. Anterior plate and screw fixation are demonstrated at C5- C6-C7. A 4 mm anterior subluxation of C5 relative to C6 and vein 1.8 mm anterolisthesis of T1 relati ve to C7 are noted. No other subluxation, acute fracture, or jumped facet is apparent. Cervical bernard tebra are normal in height. Chronic Schmorl's nodes are seen at C7 and T1. Mild C5-6 and C7-T1 disc space narrowing is detected. T2W/IR bright, T1W nearly isointense/hypointense foci (7 x 8.6 x 10 mm focus in the C6 body, 6 mm diameter and 7.4 mm diameter foci in the T1 body, and 17 x 15 x 19 mm foc us in the right side of the T2 vertebral body are observed. Cervical and upper thoracic spinal cord r eveals no definitive syrinx, cord edema, myelomalacia, or neoplasm. Visible brainstem and cerebellum are normal. Small areas of T2W hyperintensity in several inferior m astoid air cells bilaterally suggest minor disease. There is minor mucosal thickening in the left ma xillary sinus near the floor. No thyroid, submandibular, or parotid gland neoplasm is evident. Ther e is mild mucosal thickening (7.3 x 6.6 mm) at the left vallecula laterally. Larynx and trachea are unremarkable. No cervical lymphadenopathy supraclavicular lymphadenopathy, apical lung mass, pneumon ia, or pleural effusion is demonstrated. Segmental analysis: C2-3: Normal. C3-4: Minor posterior disc bulge (1.3 mm AP) does not contact the cord. Canal is 9.4 mm AP. Mild l eft foraminal stenosis is due to uncinate hypertrophy and minor left facet arthropathy. C4-5: Broad posterior disc bulge (2.1 mm AP) touches the cord anteriorly. Canal is 9 mm AP. Mild r ight and moderate /marked left foraminal stenoses are due to uncinate hypertrophy and minor facet dis ease. C5-6: Minor anterior subluxation of C5 and small posterior disc bulge (1.7 mm AP) does not contact t he cord. Canal is 8.6 mm AP. Mild bilateral foraminal stenoses are due to uncinate hypertrophy. C6-7: S/P ACDF. Small posterior spondylotic ridges noted. Canal is 8.2 mm AP. Each foramen is cortes nt. C7-T1: minor anterior subluxation of T1 and broad posterior disc/osteophyte complex (2.2 mm AP) do n ot cause cord compression. Canal is 8.6 mm AP. Mild/moderate right and marked left foraminal stenos es are due to uncinate hypertrophy. T1-2: Minor posterior disc bulge does not cause cord compression or central stenosis. Each foramen is slightly narrowed due to facet disease. IMPRESSIONS: 1. C-spine surgical changes at C5-6 and C6-7. 2. C-spine mild spondylosis, mild facet arthropathy, and multilevel DDD. 3. Mild central canal stenoses at C3-4, C4-5, C5-6, C6-7, and C7-T1. 4. Multilevel foraminal stenoses, especially left C4-5 and left C7-T1. 5. Minor bilateral mastoid air cell disease. 6. Mild left maxillary sinus disease. 7. Left vallecula probable mild mucosal inflammation laterally. No definitive abnormality is seen i n this region and March 2014 CT scan. If symptoms warrant further evaluation, direct visualizati on could be helpful.
== END 2017-08-14 08:42 | disposition home or self-care (01) ==
LOC: RAD 08:41
PROVIDERS: ATTEND Emergency Medicine
DX: M54.12 Radiculopathy, cervical region (principal)

== ENCOUNTER 2017-08-15 03:18 | Emergency (ER) ==
[2017-08-15 03:25] VITALS: BP 139/88; TEMP 97; BMI 21.6
[2017-08-15] MEDS ORDERED: DILAUDID 2 MG/ML SYRINGE IM STA (03:38)
[2017-08-15] MEDS ORDERED: PHENERGAN 25 MG/ML VIAL IM STA (03:39)
[2017-08-15] MEDS ORDERED: TORADOL IM STA (03:39)
--- NOTE | 2017-08-15 03:42 | ED.PDOC ---
General ED Provider: Dr. CLARISSE URBINA-ER Chief Complaint: Headache Stated Complaint: i have a headache Time Seen by Physician: 03:20 Mode of Arrival: Walk-In Information Source: Patient Exam Limitations: No limitations [facility] Documentation Reviewed and Agree: Yes Reviewed sepsis parameters & appropriate labs ordered?: Yes System Inflammatory Response Syndrome: Not Applicable Sepsis Protocol: For patient's 13 years and over: Temp is 96.8 and below OR 101 and greater Pulse >90 BPM Resp >20/minute Acutely Altered Mental Status Are patient's symptoms suggestive of a new infection, such as: -Pneumonia -Skin, Soft Tissue -Endocarditis -UTI -Bone, Joint Infection -Implantable Device -Acute Abdominal Infection -Wound Infection -Meningitis -Blood Stream Catheter Infection -Unknown Neurological Complaint Exam - Headache Complaint/Exam Onset: Gradual Duration: several days Symptoms Are: Still present Timing: Constant Worst Headache Ever: No Initial Severity: Mild Current Severity: Moderate Location: Diffuse Character: Reports: Dull, Throbbing, Pressure, Typical headache, Migraine Aggravating: Reports: Bright lights Associated Signs and Symptoms: Reports: Nausea, Vomiting. Denies: Dizziness, Seizure, Sinus pressure, Fever, Neck stiffness, Decreased LOC, Visual changes Related History: Reports: Similar episode. Denies: Recent trauma, Remote trauma Related Surgical History: Reports: None SAH Risk Factors: Reports: None Meningitis Risk Factors: Reports: None Temporal Arteritis Risk Factors: Reports: Normal Head CT Within Last 12 Months: No Fundoscopic Exam: Present: Normal Findings Papilledema Present: No Temporal Artery Tenderness: Present: None Sinus Tenderness: Present: None TMJ Tenderness: Present: None Glascow Coma Scale (see protocol): 15 Meningeal Signs Positive: No Pain on Passive Flexion-Positive Kernig's: No ROM Limited In: No Limitiations Focal Weakness: Present: None Focal Sensory Loss: Present: None Gait: Normal Nystagmus Present: No Gag Reflex Present: Yes [id number]: Normal Findings Romberg Test Positive: No Babinski Sign: Negative Right, Negative Left Heel to Toe Normal: Yes Differential Diagnoses: Migraine Review of Systems - Review Of Systems Constitutional: Reports: No symptoms Eyes: Reports: No symptoms Ears, Nose, Mouth, Throat: Reports: No symptoms Respiratory: Reports: No symptoms Cardiac: Reports: No symptoms GI: Reports: Nausea, Vomiting : Reports: No symptoms Musculoskeletal: Reports: No symptoms Skin: Reports: No symptoms Neurological: Reports: Headache Endocrine: Reports: No symptoms Hematologic/Lymphatic: Reports: No symptoms All Other Systems: Reviewed and Negative Past Medical History - Past Medical History Previously Healthy: Yes Endocrine: Reports: None Cardiovascular: Reports: None Respiratory: Reports: None Hematological: Reports: None Gastrointestinal: Reports: Other (Colitis ) Genitourinary: Reports: None Neuro/Psych: Reports: None Musculoskeletal: Reports: Back Pain Cancer: Reports: None - Surgical History General Surgical History: Reports: Back Surgery (x2), Other (NECK SURGERY X 2, R HAND SURGERY X 2) - Family History Family History: Reports: None - Social History Smoking Status: Former smoker Hx Substance Use: No Alcohol Screening: None - Immunizations Tetanus Shot up to Date: Yes Physical Exam - Physical Exam Appearance: Well-appearing, No pain distress, Well-nourished Pain Distress: Moderate Eyes: FRANSISCA, EOMI, Conjunctiva clear ENT: Ears normal, Nose normal, Oropharynx normal Neck: Supple Respiratory: Airway patent, Breath sounds clear, Breath sounds equal, Respirations nonlabored Cardiovascular: RRR, Pulses normal, No rub, No murmur GI/: Soft, Nontender, No masses, Bowel sounds normal, No Organomegaly Musculoskeletal: Normal strength, ROM intact, No edema, No calf tenderness Skin: Warm, Dry, Normal color Neurological: Sensation intact, Motor intact, Reflexes intact, Cranial nerves intact, Alert, Oriented Psychiatric: Affect appropriate, Mood appropriate Interpretation - Radiology Interpretation Radiology Interpretation By: Radiologist Radiology Results: Negative Exam Interpreted: CT Scan Re-Evaluation - Re-Evaluation Time of Re-Evaluation: 04:10 Status: Improved Vital Signs Stable: Yes Pain Level: 1 Appearance: NAD Lungs: Clear Skin: Warm and Dry Neuro: Alert and Oriented X3 CV: RRR Critical Care Note - Critical Care Note Total Time (mins): 0 Course - Course Orders, Labs, Meds: Orders Category Date Time Status Hydromorphone HCl/Pf [Dilaudid 2 mg/ml Syringe] MEDS 08/15/17 03:38 Stat 2 mg IM ONCE STA Ketorolac Tromethamine [Toradol] MEDS 08/15/17 03:39 Stat 60 mg IM ONCE STA Promethazine HCl [Phenergan 25 mg/ml Vial] MEDS 08/15/17 03:39 Stat 25 mg IM ONCE STA CT HEAD W/O CONTRAST Stat RADS 08/15/17 03:39 Ordered Medications Discontinued Medications Generic Name Dose Route Start Last Admin Trade Name Fareed PRN Reason Stop Dose Admin Hydromorphone HCl 2 mg 08/15/17 03:38 Dilaudid 2 Mg/Ml Syringe IM 08/15/17 03:39 ONCE STA Ketorolac Tromethamine 60 mg 08/15/17 03:39 Toradol IM 08/15/17 03:40 ONCE STA Promethazine HCl 25 mg 08/15/17 03:39 Phenergan 25 Mg/Ml Vial IM 08/15/17 03:40 ONCE STA Vital Signs: Temp Pulse Resp BP Pulse Ox 08/15/17 03:18 97 F L 69 20 139/88 98 Departure - Departure Time of Disposition: 03:43 Disposition: HOME SELF-CARE Discharge Problem: Migraine Qualifiers: Migraine type: unspecified Status migrainosus presence: without status migrainosus Intractability: not intractable Qualified Code(s): G43.909 - Migraine, unspecified, not intractable, without status migrainosus Instructions: Migraine Headache (ED) Condition: Good Pt referred to PMD for follow-up: Yes IPMP verified?: No Additional Instructions: f/u with pcp Allergies/Adverse Reactions: Allergies No Known Allergies Allergy (Verified 08/15/17 03:26) Home Medications: Ambulatory Orders Simethicone 125 mg PO BID 03/31/14 Diphenhydramine HCl [Benadryl] 50 mg PO DAILY PRN #2 01/10/17 Mesalamine [Apriso] 2 cap PO BID 07/01/17 Multivitamin with Iron [Daily Vitamin + Iron] 1 each PO DAILY 07/27/17 Omeprazole 20 mg PO DAILY 07/27/17 Prednisone 20 mg PO ONCE #18 tablet 07/27/17 Disposition Discussed With: Patient, Family
--- NOTE | 2017-08-15 04:12 | CT ---
EXAM: CT head without contrast 08/15/2017. Sagittal and coronal reformatted images obtained HISTORY: Headache COMPARISON: 11/20/2014 FINDINGS: There is no evidence of intracranial hemorrhage. The midline is maintained. There is no h ydrocephalus. No cerebellar tonsillar ectopia. Evaluation of the calvarium shows no fracture. Th e mastoid air cells are normally pneumatized. IMPRESSION: No acute intracranial abnormality.
== END 2017-08-15 04:15 | disposition home or self-care (01) ==
LOC: ED 03:18
DX: G43.909 Migraine, unspecified, not intractable, without status migrainosus (principal)
CPT/HCPCS: 96372; 99283

== ENCOUNTER 2017-10-27 13:39 | Outpatient (CLI) | payer OTHER | END 2017-10-27 13:40 | disposition home or self-care (01) | LOC: LAB 13:39 | PROVIDERS: ATTEND Nurse Practitioner Family | DX: D64.9 Anemia, unspecified (principal); R06.02 Shortness of breath; R53.83 Other fatigue | CPT/HCPCS: 36415; 80053; 85007; 85025 ==

== ENCOUNTER 2017-12-05 09:55 | Outpatient (CLI) | payer OTHER ==
[2017-12-05] MEDS ORDERED: VENOFER 200 MG in SODIUM CHLORIDE 100 ML IV ONE (10:09)
[2017-12-05 10:13] VITALS: TEMP 98.2
[2017-12-05 10:14] VITALS: BP 125/80
== END 2017-12-05 11:35 | disposition home or self-care (01) ==
LOC: OPMED 09:55
PROVIDERS: ATTEND Internal Medicine
DX: K90.9 Intestinal malabsorption, unspecified (principal); D50.9 Iron deficiency anemia, unspecified
CPT/HCPCS: 96365

== ENCOUNTER 2017-12-07 10:08 | Outpatient (CLI) | payer OTHER ==
[2017-12-07] MEDS ORDERED: VENOFER 200 MG in SODIUM CHLORIDE 100 ML IV ONE (10:20)
[2017-12-07 10:22] VITALS: BP 107/71; TEMP 97.6
== END 2017-12-07 10:09 | disposition home or self-care (01) ==
LOC: OPMED 10:08
PROVIDERS: ATTEND Internal Medicine
DX: D50.9 Iron deficiency anemia, unspecified (principal); K90.9 Intestinal malabsorption, unspecified
CPT/HCPCS: 96365

== ENCOUNTER 2017-12-12 09:48 | Outpatient (CLI) ==
[2017-12-12] MEDS ORDERED: VENOFER 200 MG in SODIUM CHLORIDE 100 ML IV ONE (10:00)
[2017-12-12 10:06] VITALS: BP 112/61; TEMP 98
== END 2017-12-12 09:49 | disposition home or self-care (01) ==
LOC: OPMED 09:48
PROVIDERS: ATTEND Internal Medicine
DX: D50.9 Iron deficiency anemia, unspecified (principal); K90.9 Intestinal malabsorption, unspecified
CPT/HCPCS: 96365

== ENCOUNTER 2017-12-14 09:41 | Outpatient (CLI) ==
[2017-12-14] MEDS ORDERED: VENOFER 200 MG in SODIUM CHLORIDE 100 ML IV ONE (09:54)
[2017-12-14 09:58] VITALS: BP 113/65; TEMP 98.2
== END 2017-12-14 09:42 | disposition home or self-care (01) ==
LOC: OPMED 09:41
PROVIDERS: ATTEND Internal Medicine
DX: D50.9 Iron deficiency anemia, unspecified (principal); K90.9 Intestinal malabsorption, unspecified
CPT/HCPCS: 96365

== ENCOUNTER 2017-12-19 10:09 | Outpatient (CLI) | payer OTHER ==
[2017-12-19 10:48] VITALS: BP 116/56; TEMP 98.2
[2017-12-19] MEDS ORDERED: VENOFER 200 MG in SODIUM CHLORIDE 100 ML IV ONE (10:50)
== END 2017-12-19 10:10 | disposition home or self-care (01) ==
LOC: OPMED 10:09
PROVIDERS: ATTEND Internal Medicine
DX: K90.9 Intestinal malabsorption, unspecified (principal); D60.9 Acquired pure red cell aplasia, unspecified
CPT/HCPCS: 96365

== ENCOUNTER 2017-12-26 09:31 | Outpatient (CLI) | payer OTHER ==
[2017-12-26] MEDS ORDERED: VENOFER 200 MG in SODIUM CHLORIDE 100 ML IV ONE (09:35)
[2017-12-26 09:38] VITALS: BP 113/74; TEMP 98.2
== END 2017-12-26 09:32 | disposition home or self-care (01) ==
LOC: OPMED 09:31
PROVIDERS: ATTEND Internal Medicine
DX: D50.9 Iron deficiency anemia, unspecified (principal); K90.9 Intestinal malabsorption, unspecified
CPT/HCPCS: 96365

== ENCOUNTER 2017-12-28 09:38 | Outpatient (CLI) ==
[2017-12-28 09:56] VITALS: BP 120/64; TEMP 97.6
[2017-12-28] MEDS: VENOFER 200 MG in SODIUM CHLORIDE 100 ML IV ONE (10:22)
== END 2017-12-28 09:39 | disposition home or self-care (01) ==
LOC: OPMED 09:38
PROVIDERS: ATTEND Internal Medicine
DX: D50.9 Iron deficiency anemia, unspecified (principal); K90.9 Intestinal malabsorption, unspecified
CPT/HCPCS: 96365

== ENCOUNTER 2018-01-19 10:40 | Inpatient (IN) ==
[2018-01-19 11:35] VITALS: BMI 21.2
[2018-01-19] MEDS ORDERED: ZOFRAN 4 MG/2 ML IVP PRN (11:39)
--- NOTE | 2018-01-19 14:12 | CT ---
EXAM: CT of the abdomen pelvis without contrast History: Abdominal pain. Comparison: CT abdomen pelvis 07/27/2017 Technique: Multiplanar CT images through the abdomen pelvis were obtained without the administration of IV contrast Findings: Lung bases are free of consolidation. No acute osseous abnormalities. Moderate to severe degenerate disc disease at L4-L5. Stable L1 vertebral body hemangioma. Gallbladder is not seen and is either contracted or absent. No focal liver or splenic lesions. No p eripancreatic inflammation. Adrenal glands are unremarkable. 2 mm calculus within the inferior pole of the right kidney. No ureteral calculi. No hydronephrosis. No dilated loops of bowel. No free air. No ascites. Bladder is not well distended. Prostate is not enlarged. Scattered colonic stool . The visualized appendix is not dilated or inflamed. Impression: 1. No acute intra-abdominal or pelvic process. 2. Nonobstructing right nephrolithiasis. 3. Moderate to severe degenerative disc disease at L4-L5.
[2018-01-19] MEDS: SOLU-MEDROL 40 MG IVP SCH ×3 (14:59→22:10)
[2018-01-19] MEDS: SODIUM CHLORIDE 1,000 ML IV SCH ×2 (14:59→22:10)
[2018-01-19] MEDS: ATARAX PO SCH ×2 (15:00→21:56)
[2018-01-19] MEDS ORDERED: NON-FORMULARY MEDICATION (Hydroxyzine Hcl [Hydroxyzine Hcl] 10 MG) PO SCH (15:00)
[2018-01-19] MEDS: MYLICON PO SCH (20:05)
[2018-01-19] MEDS ORDERED: SIMETHICONE 125 MG PO SCH (21:00)
[2018-01-19] MEDS: BENADRYL PO SCH (21:55)
[2018-01-19] MEDS: DESYREL PO SCH (21:55)
[2018-01-19] MEDS: MESALAMINE PO SCH (21:56)
[2018-01-20] MEDS: SOLU-MEDROL 40 MG IVP SCH ×3 (06:07→21:55)
[2018-01-20] MEDS: PRILOSEC PO SCH ×2 (06:07→16:54)
[2018-01-20] MEDS ORDERED: PRILOSEC PO SCH (06:30)
[2018-01-20] MEDS: SODIUM CHLORIDE 1,000 ML IV SCH ×2 (07:03→18:24)
[2018-01-20] MEDS: MULTIVITAMIN TABLET PO SCH (08:16)
[2018-01-20] MEDS: ATARAX PO SCH ×3 (08:16→21:52)
[2018-01-20] MEDS: MESALAMINE PO SCH ×2 (08:17→21:56)
[2018-01-20] MEDS: FERROUS SULFATE PO SCH (08:17)
[2018-01-20] MEDS: MYLICON PO SCH ×2 (08:17→16:54)
[2018-01-20] MEDS ORDERED: NON-FORMULARY MEDICATION (Ferrous Sulfate [Iron] 325 MG) PO SCH (09:00)
[2018-01-20] MEDS ORDERED: MULTIVITAMIN WITH IRON PO SCH (09:00)
[2018-01-20] MEDS: DEMEROL 50 MG/ML VIAL IVP PRN ×2 (17:21→22:00)
[2018-01-20] MEDS: DESYREL PO SCH (21:51)
[2018-01-20] MEDS: BENADRYL PO SCH (21:51)
[2018-01-21] MEDS: SODIUM CHLORIDE 1,000 ML IV SCH ×3 (04:48→23:37)
[2018-01-21] MEDS: SOLU-MEDROL 40 MG IVP SCH ×3 (04:48→21:02)
[2018-01-21] MEDS: DEMEROL 50 MG/ML VIAL IVP PRN ×4 (05:34→23:27)
[2018-01-21] MEDS: PRILOSEC PO SCH ×2 (05:34→16:29)
[2018-01-21] MEDS ORDERED: TORADOL IVP STA (07:12)
[2018-01-21] MEDS: FERROUS SULFATE PO SCH (08:12)
[2018-01-21] MEDS: MYLICON PO SCH ×2 (08:12→16:30)
[2018-01-21] MEDS: ATARAX PO SCH ×3 (08:12→21:01)
[2018-01-21] MEDS: MULTIVITAMIN TABLET PO SCH (08:13)
[2018-01-21] MEDS: MESALAMINE PO SCH ×2 (08:13→22:47)
[2018-01-21] MEDS: DESYREL PO SCH (21:01)
[2018-01-21] MEDS: BENADRYL PO SCH (21:01)
[2018-01-22] MEDS: SOLU-MEDROL 40 MG IVP SCH ×3 (04:33→21:07)
[2018-01-22] MEDS: PRILOSEC PO SCH (06:14)
[2018-01-22] MEDS: MYLICON PO SCH (08:13)
[2018-01-22] MEDS: ATARAX PO SCH ×3 (08:13→22:45)
[2018-01-22] MEDS: FERROUS SULFATE PO SCH (08:14)
[2018-01-22] MEDS: MULTIVITAMIN TABLET PO SCH (08:14)
[2018-01-22] MEDS: MESALAMINE PO SCH ×2 (08:35→23:24)
[2018-01-22] MEDS: DEMEROL 50 MG/ML SYRINGE IVP PRN ×3 (09:04→22:36)
[2018-01-22] MEDS: SODIUM CHLORIDE 1,000 ML IV SCH ×2 (11:57→22:38)
[2018-01-22] MEDS: BENADRYL PO SCH (21:08)
[2018-01-22] MEDS: DESYREL PO SCH (21:09)
[2018-01-23 05:13] VITALS: BP 102/56; TEMP 97.7
[2018-01-23] MEDS: SOLU-MEDROL 40 MG IVP SCH (06:14)
[2018-01-23] MEDS: MYLICON PO SCH ×2 (09:05→09:10)
[2018-01-23] MEDS: FERROUS SULFATE PO SCH (09:05)
[2018-01-23] MEDS: MESALAMINE PO SCH (09:05)
[2018-01-23] MEDS: ATARAX PO SCH (09:06)
[2018-01-23] MEDS: MULTIVITAMIN TABLET PO SCH (09:06)
[2018-01-23] MEDS: PRILOSEC PO SCH (09:10)
--- NOTE | 2018-01-23 17:20 | PCM.HOSP ---
- Initial Hospital Care [id number] 70 Minutes Bedside ([id number]): 01/19 - Subsequent Care [id number] 35 Minutes per Day ([id number]): 01/20. 01/21. 01/22 - Hospital Discharge [id number] More than 30 Minutes ([id number]): 01/23
--- NOTE | 2018-01-25 14:29 | PN ---
DATE OF SERVICE: 01/20/18 SUBJECTIVE: The patient was admitted with acute abdominal pain with colitis flare-up having diarrhea, which has been stopped since today morning. No more diarrhea. He wanted to start eating the food which was started yesterday at midnight. With clear liquids, he was able to keep it down. Pain medications are helping. REVIEW OF SYSTEMS: CONSTITUTIONAL: No fever, no chills. HEENT: Normal. ENDOCRINE: No weight gain, no weight loss. CVS: No angina symptoms. No CHF symptoms. No palpitations. No atypical chest pain for CAD. No shortness of breath. No PND, no orthopnea. RESPIRATORY: No cough, no hemoptysis. GI: No nausea, no vomiting. No abdominal pain. : No hematuria. No polyuria. MUSCULOSKELETAL: No joint swelling. PSYCHIATRIC: Not anxious. No depression. No suicidal thoughts. No homicidal thoughts. SKIN: Intact. No rash. PHYSICAL EXAMINATION: V/S: BP 106/66, respiratory rate 18, heart rate 50, temperature 97.4, saturation 98. HEENT: Normocephalic, atraumatic. Mucosa dry. Pallor positive. Sick looking male lying in bed. NECK: Supple. No JVD, no carotid bruit. No lymphadenopathy. LUNGS: Clear to auscultation. No rales or rhonchi. HEART: Sinus bradycardia. S1, S2 normal. No S3. No murmur, gallop or regurgitation. ABDOMEN: Epigastric tenderness is present but no rigidity or guarding. No CVA tenderness. No CVA tenderness. EXTREMITIES: No cyanosis, clubbing or pedal edema. MUSCULOSKELETAL: No joint swelling. NEUROLOGIC: Awake, alert, oriented times three. No focal deficit. LYMPHATIC: No lymph nodes palpable. SKIN: Intact. LABS: White count 8.17, hemoglobin 12.1, hematocrit 35.7, platelet count 85. Sodium 140, potassium 4.2, chloride 108, bicarb 22, BUN 12, creatinine 0.83, glucose 147. ASSESSMENT: 1. ACUTE CROHN'S COLITIS FLAREUP 2. ABDOMINAL PAIN 3. SINUS BRADYCARDIA 4. CHRONIC DJD SPINE 5. MEDICAL MARIJUANA USE 6. DEPRESSION/ANXIETY - RECENTLY PATIENT WAS PLACED ON 4N IN [place] PLAN: 1. Clear liquid diet 2. Demerol fo the pain 3. IV fluids 4. Daily I & O's TIME SPENT: More than 30 minutes MTDD
--- NOTE | 2018-01-25 14:45 | PN ---
DATE OF SERVICE: 01/21/18 SUBJECTIVE: Admitted with abdominal pain, colitis flare-up and diarrhea. Diarrhea has been stopped. The patient is having a lot of back pain. He was able to tolerate the food. No vomiting; has nausea. REVIEW OF SYSTEMS: CONSTITUTIONAL: No fever, no chills. HEENT: Normal. ENDOCRINE: No weight gain, no weight loss. CVS: No angina symptoms. No CHF symptoms. No palpitations. No atypical chest pain for CAD. No shortness of breath. No PND, no orthopnea. RESPIRATORY: No cough, no hemoptysis. GI: Nausea. No vomiting. No abdominal pain. : No hematuria. No polyuria. MUSCULOSKELETAL: Back pain. PSYCHIATRIC: Not anxious. No depression. No suicidal thoughts. No homicidal thoughts. SKIN: Intact. No rash. PHYSICAL EXAMINATION: V/S: BP 96/55, respiratory rate 16, heart rate 60, temperature 97.6, saturation 97. HEENT: Normocephalic, atraumatic. Mucosa dry. Pallor positive. No icterus. NECK: Supple. No JVD, no carotid bruit. No lymphadenopathy. LUNGS: Clear to auscultation. No rales or rhonchi. HEART: S1, S2 normal. No S3. No murmur, gallop or regurgitation. ABDOMEN: Epigastric discomfort and tenderness is present. No rigidity, guarding. No CVA tenderness. Paraspinal muscle in the lower back hurting. EXTREMITIES: No cyanosis, clubbing or pedal edema. MUSCULOSKELETAL: No joint swelling. NEUROLOGIC: Awake, alert. No focal deficit. LYMPHATIC: No lymph nodes palpable. SKIN: Intact. LABS: Sodium 139, potassium 4.1, chloride 107, bicarb 25, BUN 13, creatinine 0.80, glucose 139. White count 13.11, hemoglobin 11.2, hematocrit 32.9, platelet count 167. ASSESSMENT: 1. COLITIS FLAREUP 2. ACUTE GASTROENTERITIS 3. ANEMIA 4. HYPERTENSION 5. DJD SPINE 6. SINUS BRADYCARDIA PLAN: 1. Toradol 2. Continue Zofran p.r.n. 3. Omeprazole b.i.d. 4. IV fluids TIME SPENT: More than 35 minutes MTDD
--- NOTE | 2018-01-30 09:14 | PN ---
DATE OF SERVICE: 01/22/18 SUBJECTIVE: The patient is still having epigastric pain. He had lunch today, 01/22 and started having diarrhea. No nausea or vomiting. REVIEW OF SYSTEMS: CONSTITUTIONAL: No fever, no chills. HEENT: Normal. ENDOCRINE: No weight gain, no weight loss. CVS: No angina symptoms. No CHF symptoms. No palpitations. No atypical chest pain for CAD. No shortness of breath. No PND, no orthopnea. RESPIRATORY: No cough, no hemoptysis. GI: Epigastric pain. Diarrhea. No nausea, no vomiting. : No hematuria. No polyuria. MUSCULOSKELETAL: No joint swelling. PSYCHIATRIC: Not anxious. No depression. No suicidal thoughts. No homicidal thoughts. SKIN: Intact. No rash. PHYSICAL EXAMINATION: V/S: BP 117/69, respiratory rate 18, heart rate 47, temperature 98.1, saturation 98. HEENT: Normocephalic, atraumatic. Mucosa dry. Pallor positive. NECK: Supple. No JVD, no carotid bruit. No lymphadenopathy. LUNGS: Clear to auscultation. No rales or rhonchi. HEART: S1, S2 normal. No S3. No murmur, gallop or regurgitation. ABDOMEN: Epigastric discomfort and tenderness present. No rigidity, no guarding. No CVA tenderness. EXTREMITIES: No cyanosis, clubbing or pedal edema. MUSCULOSKELETAL: No joint swelling. NEUROLOGIC: Awake, alert. No focal deficit. LYMPHATIC: No lymph nodes palpable. SKIN: Intact. LABS: White count 13.11, hemoglobin 11.2, hematocrit 32.9, platelet count 167. Sodium 139, potassium 4.1, chloride 107, bicarb 25, BUN 13, creatinine 0.80, glucose 139. ASSESSMENT: 1. COLITIS FLAREUP 2. ABDOMINAL PAIN FROM COLITIS FLAREUP 3. ACUTE GASTROENTERITIS 4. OSTEOARTHRITIS 5. DJD SPINE 6. SINUS BRADYCARDIA 7. DEPRESSION PLAN: 1. Continue regular diet. 2. Continue Demerol. 3. IV fluids. 4. Up and about walking. TIME SPENT: More than 35 minutes MTDD
--- NOTE | 2018-01-31 11:38 | DS ---
DATE OF SERVICE: 01/23/18 FINAL DIAGNOSIS: 1. ACUTE GASTROENTERITIS AND DEHYDRATION 2. FLARE UP OF COLITIS 3. NEPHROLITHIASIS, RIGHT-SIDED, NONOBSTRUCTING 4. DEHYDRATION 5. MODERATE TO SEVERE DJD 6. SINUS BRADYCARDIA 7. DEPRESSION/ANXIETY 8. DJD SPINE 9. SURGERY ON BACK DISCHARGE INSTRUCTIONS: 1. Discharge the patient home. 2. Followup appointment with Dr. Solano on January 25, 2018 at 3:30. MEDICATIONS AT DISCHARGE: Hydroxyzine Benadryl Iron Mesalamine Daily vitamins Simethicone Trazodone Prilosec/Omeprazole NEW PRESCRIPTIONS: Prednisone 10 mg twice a day for 5 days Carafate 1 gm a.c. and h.s. MEDICATION CHANGE: Omeprazole 20 mg p.o. b.i.d. with meal DIET INSTRUCTIONS: Soft diet as tolerated, increase it. ACTIVITY: As much as tolerated. DISEASE SPECIFIC EDUCATION: Colitis flare up, dehydration and gastroenteritis have been discussed, verbalized understanding. HOSPITAL COURSE: The patient is a 42-year-old gentleman came to the office with severe abdominal pain, epigastric and left upper quadrant. Given his history of colitis, the patient was admitted to the hospital. The patient has been having diarrhea, vomiting, unable to keep anything down. He was started on Zofran and Demerol. IV fluids were given. He had one to two episodes of diarrhea and diarrhea has stopped. CT abdomen did not show any acute findings. Steroids were also given thinking maybe a colitis flare up. Gradually the pain seemed to be getting better then clear liquids started. He tolerated good. Advanced the diet. Hemoglobin and hematocrit have been stable. BUN and creatinine stable, did not change. As the patient has been up and about walking, started eating and keeping food down, the patient was discharged home. TIME SPENT: MORE THAN 65 MINUTES MTDD
== END 2018-01-23 12:15 | disposition home or self-care (01) | DRG 641 ==
LOC: MEDSURG A 10:40
PROVIDERS: ADMIT Emergency Medicine; ATTEND Emergency Medicine
DX: E86.0 Dehydration (principal); K52.9 Noninfective gastroenteritis and colitis, unspecified; N20.0 Calculus of kidney; R10.13 Epigastric pain; R00.1 Bradycardia, unspecified; F41.8 Other specified anxiety disorders; M47.9 Spondylosis, unspecified; M54.9 Dorsalgia, unspecified; M19.90 Unspecified osteoarthritis, unspecified site; G62.9 Polyneuropathy, unspecified; I10 Essential (primary) hypertension; D64.9 Anemia, unspecified
CPT/HCPCS: 36415; 80053; 81001; 82150; 83690; 85025; 93005; 93010

== ENCOUNTER 2018-01-25 16:18 | Outpatient (CLI) | payer OTHER | END 2018-01-25 16:19 | disposition home or self-care (01) | LOC: LAB 16:18 | PROVIDERS: ATTEND Emergency Medicine | DX: M54.9 Dorsalgia, unspecified (principal); G89.29 Other chronic pain; G62.9 Polyneuropathy, unspecified; F41.9 Anxiety disorder, unspecified; Z79.899 Other long term (current) drug therapy | CPT/HCPCS: 36415; 85025 ==

== ENCOUNTER 2018-02-06 07:49 | Outpatient (CLI) ==
[2018-02-06 08:05] VITALS: BP 109/68; TEMP 97.7
[2018-02-06] MEDS ORDERED: VENOFER 200 MG in SODIUM CHLORIDE 100 ML IV ONE (08:09)
== END 2018-02-06 07:50 | disposition home or self-care (01) ==
LOC: OPMED 07:49
PROVIDERS: ATTEND Internal Medicine
DX: D50.9 Iron deficiency anemia, unspecified (principal); K90.9 Intestinal malabsorption, unspecified
CPT/HCPCS: 96365

== ENCOUNTER 2018-02-08 08:01 | Outpatient (CLI) ==
[2018-02-08 08:31] VITALS: BP 132/78; TEMP 98.1
[2018-02-08] MEDS ORDERED: VENOFER 200 MG in SODIUM CHLORIDE 100 ML IV ONE (08:35)
== END 2018-02-08 08:02 | disposition home or self-care (01) ==
LOC: OPMED 08:01
PROVIDERS: ATTEND Internal Medicine
DX: D50.9 Iron deficiency anemia, unspecified (principal); K90.9 Intestinal malabsorption, unspecified
CPT/HCPCS: 96365

== ENCOUNTER 2018-02-11 15:22 | Emergency (ER) ==
[2018-02-11 15:34] VITALS: BP 115/75; TEMP 99.1; BMI 21.9
[2018-02-11] MEDS ORDERED: TORADOL IM STA (15:41)
[2018-02-11] MEDS ORDERED: DILAUDID 2 MG/ML SYRINGE IM STA (15:41)
[2018-02-11] MEDS ORDERED: DECADRON 4 MG/ML SDV IM STA (15:41)
--- NOTE | 2018-02-11 15:47 | ED.PDOC ---
General ED Provider: Dr. CLARISSE URBINA-ER Chief Complaint: Back Pain Stated Complaint: my lower back hurts Time Seen by Physician: 15:25 Mode of Arrival: Wheelchair Information Source: Family Exam Limitations: No limitations [facility] T[facility] Documentation Reviewed and Agree: Yes Does patient meet sepsis criteria?: No System Inflammatory Response Syndrome: Not Applicable Sepsis Protocol: For patient's 13 years and over: Temp is 96.8 and below OR 101 and greater Pulse >90 BPM Resp >20/minute Acutely Altered Mental Status Are patient's symptoms suggestive of a new infection, such as: -Pneumonia -Skin, Soft Tissue -Endocarditis -UTI -Bone, Joint Infection -Implantable Device -Acute Abdominal Infection -Wound Infection -Meningitis -Blood Stream Catheter Infection -Unknown Musculoskeletal Complaint Exam - Back Pain Complaint/Exam Mechanism of Injury: Reports: No known trauma Onset/Duration: several days Symptoms Are: Still present Timing: Constant Initial Severity: Mild Current Severity: Mild Location: Reports: Discrete Character: Reports: Dull, Spasmodic Aggravating: Reports: Movements, Lifting Alleviating: Reports: None Associated Signs and Symptoms: Denies: Swelling, Redness, Bruising, Fever, Weakness, Numbness, Tingling, Abdominal pain, Flank pain, Bladder incontinence, Bowel incontinence, Weight loss, Pain with weight bearing Related History: Reports: Similar episode Cauda Equina Risk Factors: Reports: None Epidural Abcess Risk Factors: Reports: None Focal Tenderness: Yes Paraspinal Muscle Tenderness: Yes Paraspinal Muscle Spasm: Yes Scoliosis: No Lordosis: No Kyphosis: No SLR Test: Right Negative, Left Negative Hip Motion Testing Pain: Right Negative, Left Negative Focal Weakness: Present: None Focal Sensory Loss: Present: None Gait: Present: Abnormal Differential Diagnoses: Fracture, Herniated Disk Review of Systems - Review Of Systems Constitutional: Reports: No symptoms Eyes: Reports: No symptoms Ears, Nose, Mouth, Throat: Reports: No symptoms Respiratory: Reports: No symptoms Cardiac: Reports: No symptoms GI: Reports: No symptoms : Reports: No symptoms Musculoskeletal: Reports: Back pain Skin: Reports: No symptoms Neurological: Reports: No symptoms Endocrine: Reports: No symptoms Hematologic/Lymphatic: Reports: No symptoms All Other Systems: Reviewed and Negative Past Medical History - Past Medical History Previously Healthy: Yes Endocrine: Reports: None Cardiovascular: Reports: None Respiratory: Reports: None Hematological: Reports: None Gastrointestinal: Reports: Other (Colitis ) Genitourinary: Reports: None Neuro/Psych: Reports: None Musculoskeletal: Reports: Back Pain Cancer: Reports: None - Surgical History General Surgical History: Reports: Back Surgery (x2), Other (NECK SURGERY X 2, R HAND SURGERY X 2) - Family History Family History: Reports: None - Social History Smoking Status: Former smoker Hx Substance Use: No Alcohol Screening: None Physical Exam - Physical Exam Appearance: Well-appearing, No pain distress, Well-nourished Pain Distress: Moderate Eyes: FRANSISCA, EOMI, Conjunctiva clear ENT: Ears normal, Nose normal, Oropharynx normal Neck: Supple Respiratory: Airway patent, Breath sounds clear, Breath sounds equal, Respirations nonlabored Cardiovascular: RRR GI/: Soft, Nontender, No masses, Bowel sounds normal, No Organomegaly Musculoskeletal: Limited ROM Skin: Warm, Dry, Normal color Neurological: Sensation intact, Motor intact, Reflexes intact, Cranial nerves intact, Alert, Oriented Psychiatric: Affect appropriate, Mood appropriate Interpretation - Radiology Interpretation Radiology Interpretation By: Radiologist Radiology Results: Positive Exam Interpreted: CT Scan Critical Care Note - Critical Care Note Total Time (mins): 0 Course - Course Orders, Labs, Meds: Orders Category Date Time Status Dexamethasone 4 mg/ml Inj [Decadron 4 mg/ml Sdv] MEDS 02/11/18 15:41 Discontinued 4 mg IM ONCE STA Hydromorphone HCl/Pf [Dilaudid 2 mg/ml Syringe] MEDS 02/11/18 15:41 Discontinued 2 mg IM ONCE STA Ketorolac Tromethamine [Toradol] MEDS 02/11/18 15:41 Discontinued 60 mg IM ONCE STA CT LUMBAR SPINE W/O CONTRAST Stat RADS 02/11/18 15:42 Completed Medications Discontinued Medications Generic Name Dose Route Start Last Admin Trade Name Freq PRN Reason Stop Dose Admin Dexamethasone Sodium Phosphate 4 mg 02/11/18 15:41 02/11/18 16:01 Decadron 4 Mg/Ml Sdv IM 02/11/18 15:42 4 mg ONCE STA Administration Hydromorphone HCl 2 mg 02/11/18 15:41 02/11/18 16:02 Dilaudid 2 Mg/Ml Syringe IM 02/11/18 15:42 2 mg ONCE STA Administration Ketorolac Tromethamine 60 mg 02/11/18 15:41 02/11/18 16:02 Toradol IM 02/11/18 15:42 60 mg ONCE STA Administration Vital Signs: Temp Pulse Resp BP Pulse Ox 02/11/18 15:22 99.1 F 92 H 20 115/75 92 L Departure - Departure Time of Disposition: 16:45 Disposition: HOME SELF-CARE Discharge Problem: Backache Instructions: Back Pain (ED) Condition: Good Pt referred to PMD for follow-up: Yes IPMP verified?: No Additional Instructions: medrol dose pack--neurontin 100mg tid #30--f/u with dr nevarez Allergies/Adverse Reactions: Allergies No Known Allergies Allergy (Verified 02/11/18 15:30) Home Medications: Ambulatory Orders Simethicone 125 mg PO BID 03/31/14 Diphenhydramine HCl [Benadryl] 50 mg PO BEDTIME #2 01/10/17 Mesalamine [Apriso] 2 cap PO BID 07/01/17 Multivitamin with Iron [Daily Vitamin + Iron] 1 each PO DAILY 07/27/17 Ferrous Sulfate [Iron] 325 mg PO DAILY 01/19/18 Trazodone HCl 50 mg PO BEDTIME 01/19/18 Omeprazole [Prilosec] 20 mg PO BIDAC #60 capsule. 01/23/18 Prednisone 10 mg PO BIDWM #10 tablet 01/23/18 Sucralfate [Carafate] 1 gm PO ACHS #120 tablet 01/23/18 Disposition Discussed With: Patient, Family
--- NOTE | 2018-02-11 16:43 | CT ---
EXAM: CT scan of the lumbar spine without contrast HISTORY: Low back pain TECHNIQUE: Helical imaging of the lumbar spine was performed without contrast. Sagittal and coronal reconstructions and axial images were provided for interpretation. FINDINGS: There is straightening of the lumbar spine. There is no evidence of acute compression fra cture. The paraspinal soft tissues are normal. There is no pars defect. The sacrum appears intact. Five lumbar-type vertebral bodies are seen. There is a small nonobstructing calculus seen within the right kidney. There is arthritis of the SI joints bilaterally. Segmental analysis: T12-L1: The central canal and neural foramina appear patent. L1-L2: The central canal and neural foramina appear patent. L2-L3: The central canal appears patent. There is mild facet arthropathy resulting in mild narrowin g of the neural foramina. L3-L4: There is mild disc bulge and mild facet arthropathy resulting in mild narrowing of the centra l canal and neural foramina. L4-L5: There is moderate loss of disc height and disc bulge and mild to moderate facet arthropathy r esulting in mild narrowing of the central canal and lateral recesses. There is mild bilateral forami nal stenosis at this level. There is slight degenerative retrolisthesis of L4 on L5 measuring approxi mately 2 mm. L5-S1: The central canal and lateral recesses appear adequately patent. There is mild disc bulge an d mild loss of disc height resulting in mild narrowing of the neural foramina. IMPRESSION: No evidence of acute compression fracture. There is no severe central canal stenosis. There is degenerative disc disease and facet joint arthropathy seen most severe at L4-L5 resulting in mild bilateral foraminal stenosis at L4-L5. Mild degenerative retrolisthesis seen at L4-L5.
== END 2018-02-11 16:55 | disposition home or self-care (01) ==
LOC: ED 15:22
DX: M54.5 Low back pain (principal)
CPT/HCPCS: 96372; 99283

== ENCOUNTER 2018-02-12 06:51 | Outpatient (CLI) ==
[2018-02-11 15:34] VITALS: BMI 21.9
[2018-02-12 07:11] VITALS: BP 126/71; TEMP 98.3
[2018-02-12] MEDS ORDERED: VENOFER 200 MG in SODIUM CHLORIDE 100 ML IV ONE (07:13)
== END 2018-02-12 06:52 | disposition home or self-care (01) ==
LOC: OPMED 06:51
PROVIDERS: ATTEND Internal Medicine
DX: D50.9 Iron deficiency anemia, unspecified (principal); K90.9 Intestinal malabsorption, unspecified
CPT/HCPCS: 96365

== ENCOUNTER 2018-02-15 07:38 | Outpatient (CLI) ==
[2018-02-15] MEDS ORDERED: VENOFER 200 MG in SODIUM CHLORIDE 100 ML IV ONE (08:06)
[2018-02-16 12:41] VITALS: BP 142/63; TEMP 99.1
== END 2018-02-15 07:39 | disposition home or self-care (01) ==
LOC: OPMED 07:38
PROVIDERS: ATTEND Internal Medicine
DX: D50.9 Iron deficiency anemia, unspecified (principal); K90.9 Intestinal malabsorption, unspecified; J06.9 Acute upper respiratory infection, unspecified
CPT/HCPCS: 87651; 96365

== ENCOUNTER 2018-02-15 11:52 | Inpatient (IN) ==
[2018-02-15 12:28] VITALS: BMI 21.8
[2018-02-15] MEDS: TYLENOL PO PRN (15:06)
[2018-02-15] MEDS: BENTYL PO SCH ×2 (15:06→20:28)
[2018-02-15] MEDS: SODIUM CHLORIDE 1,000 ML IV SCH (15:07)
--- NOTE | 2018-02-15 15:10 | DI ---
EXAM: Chest two views HISTORY: Coughing COMPARISON: 07/27/2017 TECHNIQUE: Two views of the chest were performed FINDINGS: The lungs are clear. There is no pleural effusion or pneumothorax. The heart is normal i n size. The mediastinal contour is normal. There are no acute abnormalities of the bones. Cervical spinal fusion hardware, incompletely imaged. IMPRESSION: No acute cardiopulmonary process.
[2018-02-15] MEDS ORDERED: DEMEROL 100 MG/ML SYRINGE IVP SCH (16:30)
[2018-02-15] MEDS: ROCEPHIN 1 GM in SODIUM CHLORIDE 50 ML IV SCH (16:39)
[2018-02-15] MEDS: PRILOSEC PO SCH (16:39)
[2018-02-15] MEDS: CARAFATE PO SCH ×2 (16:39→20:28)
[2018-02-15] MEDS: SOLU-MEDROL 40 MG IVP SCH ×2 (16:39→20:31)
[2018-02-15] MEDS: DEMEROL 25 MG/ML VIAL IVP SCH ×2 (16:47→20:29)
[2018-02-15] MEDS: NON-FORMULARY MEDICATION (Hydroxyzine Hcl [Hydroxyzine Hcl] 10 MG) PO SCH ×2 (16:51→20:30)
[2018-02-15] MEDS: DUONEB NEB SCH ×2 (17:04→23:33)
[2018-02-15] MEDS ORDERED: PREDNISONE PO SCH (17:30)
[2018-02-15] MEDS ORDERED: DILAUDID 2 MG/ML SYRINGE IVP STA (20:17)
[2018-02-15] MEDS: PHENERGAN WITH CODEINE 6.25/10 MG/5 ML PO PRN (20:27)
[2018-02-15] MEDS: BENADRYL PO SCH (20:28)
[2018-02-15] MEDS: DESYREL PO SCH (20:29)
[2018-02-15] MEDS: MESALAMINE PO SCH (20:30)
[2018-02-15] MEDS: MOBIC PO SCH (20:31)
[2018-02-15] MEDS: NEURONTIN PO SCH (20:31)
[2018-02-15] MEDS: MYLICON PO SCH (20:35)
[2018-02-15] MEDS ORDERED: IMODIUM A-D PO SCH (21:00)
[2018-02-15] MEDS ORDERED: SIMETHICONE 125 MG PO SCH (21:00)
[2018-02-15] MEDS ORDERED: IMODIUM PO PRN (21:00)
[2018-02-16] MEDS: SODIUM CHLORIDE 1,000 ML IV SCH ×2 (03:54→17:16)
[2018-02-16] MEDS: DUONEB NEB SCH ×4 (04:40→23:10)
[2018-02-16] MEDS: CARAFATE PO SCH ×4 (05:45→21:28)
[2018-02-16] MEDS: PRILOSEC PO SCH ×2 (05:45→17:17)
[2018-02-16] MEDS: DEMEROL 25 MG/ML VIAL IVP SCH ×3 (05:46→21:30)
[2018-02-16] MEDS: SOLU-MEDROL 40 MG IVP SCH ×3 (05:46→21:29)
[2018-02-16] MEDS: MESALAMINE PO SCH (08:25)
[2018-02-16] MEDS: ROCEPHIN 1 GM in SODIUM CHLORIDE 50 ML IV SCH (08:25)
[2018-02-16] MEDS: PHENERGAN WITH CODEINE 6.25/10 MG/5 ML PO PRN (08:26)
[2018-02-16] MEDS: MOBIC PO SCH ×2 (08:26→21:29)
[2018-02-16] MEDS: MULTIVITAMIN TABLET PO SCH (08:26)
[2018-02-16] MEDS: NEURONTIN PO SCH ×2 (08:26→21:29)
[2018-02-16] MEDS: NON-FORMULARY MEDICATION (Hydroxyzine Hcl [Hydroxyzine Hcl] 10 MG) PO SCH (08:26)
[2018-02-16] MEDS: FERROUS SULFATE PO SCH (08:27)
[2018-02-16] MEDS: MYLICON PO SCH ×2 (08:27→21:29)
[2018-02-16] MEDS: BENTYL PO SCH ×3 (08:27→21:28)
[2018-02-16] MEDS ORDERED: MULTIVITAMIN WITH IRON PO SCH (09:00)
[2018-02-16] MEDS ORDERED: NON-FORMULARY MEDICATION (Ferrous Sulfate [Iron] 325 MG) PO SCH (09:00)
--- NOTE | 2018-02-16 10:07 | HP ---
DATE OF SERVICE: 02/15/18 ADDENDUM: The patient was admitted from the office for the fever. After admission the patient did have a fever of 102.4 and 101.4. The Flu A and B are negative. Still coughing and congested and getting lots of yellow/green phlegm. We will be starting the patient on the Rocephin 1gram daily, breathing treatments, DUO NEBS and Solu-Medrol. TIME SPENT: More than 65 minutes today for the admission. ESTERD
--- NOTE | 2018-02-16 11:50 | CT ---
EXAM: CT chest without contrast HISTORY: Fever, pneumonia, cough, congestion COMPARISON: 06/30/2017 TECHNIQUE: CT chest performed without intravenous contrast. Coronal and sagittal reformatted images obtained FINDINGS: Thyroid and thoracic inlet appear normal. Heart normal in size. No pericardial effusion. Aorta normal in caliber. Evaluation for lymphadenopathy limited without contrast. No lymphadenopa thy identified. There is a radiopaque density in the distal esophagus, likely small fell. Visualize d portion upper abdomen demonstrates no acute abnormality. No acute abnormalities of the bones. Cer vical spinal fusion hardware is incompletely imaged. Central airway patent. No pleural effusion or pneumothorax. Bilateral consolidation and ground-glass infiltrates is greatest in the lower lobes and also involving the right upper lobe IMPRESSION: Bilateral pneumonia
[2018-02-16] MEDS ORDERED: NON-FORMULARY MEDICATION (Hydroxyzine Hcl [Hydroxyzine Hcl] 10 MG) PO PRN (13:00)
[2018-02-16] MEDS: TYLENOL PO PRN (19:31)
[2018-02-16] MEDS: BENADRYL PO SCH (21:28)
[2018-02-16] MEDS: DESYREL PO SCH (21:28)
[2018-02-17] MEDS: DUONEB NEB SCH ×3 (05:35→17:08)
[2018-02-17] MEDS: SOLU-MEDROL 40 MG IVP SCH ×3 (05:48→20:50)
[2018-02-17] MEDS: CARAFATE PO SCH ×4 (05:49→20:51)
[2018-02-17] MEDS: DEMEROL 25 MG/ML VIAL IVP SCH ×3 (05:49→20:52)
[2018-02-17] MEDS: PRILOSEC PO SCH ×2 (05:49→16:55)
[2018-02-17] MEDS: SODIUM CHLORIDE 1,000 ML IV SCH ×2 (05:49→23:01)
[2018-02-17] MEDS: NEURONTIN PO SCH ×2 (08:42→20:52)
[2018-02-17] MEDS: MESALAMINE PO SCH (08:42)
[2018-02-17] MEDS: MOBIC PO SCH ×2 (08:42→20:52)
[2018-02-17] MEDS: BENTYL PO SCH ×3 (08:42→20:50)
[2018-02-17] MEDS: MYLICON PO SCH ×2 (08:42→20:51)
[2018-02-17] MEDS: MULTIVITAMIN TABLET PO SCH (08:42)
[2018-02-17] MEDS: FERROUS SULFATE PO SCH (08:42)
[2018-02-17] MEDS: ROCEPHIN 1 GM in SODIUM CHLORIDE 50 ML IV SCH (08:46)
[2018-02-17] MEDS: BENADRYL PO SCH (20:51)
[2018-02-17] MEDS: DESYREL PO SCH (20:51)
[2018-02-18] MEDS: DUONEB NEB SCH ×4 (01:02→17:00)
[2018-02-18] MEDS: PRILOSEC PO SCH ×2 (05:37→16:29)
[2018-02-18] MEDS: CARAFATE PO SCH ×4 (05:37→20:44)
[2018-02-18] MEDS: DEMEROL 25 MG/ML VIAL IVP SCH ×3 (05:37→20:45)
[2018-02-18] MEDS: SOLU-MEDROL 40 MG IVP SCH ×3 (05:37→20:44)
--- NOTE | 2018-02-18 08:24 | PCM.HOSP ---
- Initial Hospital Care [id number] 70 Minutes Bedside ([id number]): 02/15 - Subsequent Care [id number] 35 Minutes per Day ([id number]): 02/16. 02/17 - Hospital Discharge [id number] More than 30 Minutes ([id number]): 02/18
[2018-02-18] MEDS: MESALAMINE PO SCH (09:02)
[2018-02-18] MEDS: FERROUS SULFATE PO SCH (09:03)
[2018-02-18] MEDS: NEURONTIN PO SCH ×2 (09:03→20:44)
[2018-02-18] MEDS: MULTIVITAMIN TABLET PO SCH (09:03)
[2018-02-18] MEDS: MYLICON PO SCH ×2 (09:03→20:44)
[2018-02-18] MEDS: MOBIC PO SCH ×2 (09:03→20:44)
[2018-02-18] MEDS: BENTYL PO SCH ×3 (09:03→20:44)
[2018-02-18] MEDS: ROCEPHIN 1 GM in SODIUM CHLORIDE 50 ML IV SCH ×2 (09:20→10:54)
--- NOTE | 2018-02-18 10:40 | DI ---
EXAM: PA and lateral views of the chest HISTORY: Pneumonia COMPARISON: Chest Xray from 02/15/2018 FINDINGS: There is some linear atelectasis which is new in the left base. There are some more appar ent increased lung markings in the right base possibly with a small effusion. This is new compared to previous exam. There is some flattening of the hemidiaphragms. Cardiac and mediastinal silhouettes show no acute abnormality. No acute osseous or soft tissue abnormalities. IMPRESSION: 1. New patchy increased lung markings in the right base as described with a small effusion. This ma y represent developing pneumonia versus less likely atelectasis.. 2. Linear atelectasis left base which is new. 3. Chronic obstructive pulmonary disease.
[2018-02-18] MEDS ORDERED: VANCOMYCIN 1 GM in SODIUM CHLORIDE 250 ML IV SCH ×4 (11:00)
[2018-02-18] MEDS: VANCOMYCIN 1 GM in SODIUM CHLORIDE 250 ML IV SCH ×2 (12:27→20:54)
[2018-02-18] MEDS: SODIUM CHLORIDE 1,000 ML IV SCH (12:30)
[2018-02-18] MEDS: DESYREL PO SCH (20:44)
[2018-02-18] MEDS: BENADRYL PO SCH (20:44)
[2018-02-19] MEDS: DUONEB NEB SCH ×3 (00:31→11:14)
[2018-02-19] MEDS: SOLU-MEDROL 40 MG IVP SCH ×2 (05:56→12:39)
[2018-02-19] MEDS: CARAFATE PO SCH ×2 (05:56→11:20)
[2018-02-19] MEDS: DEMEROL 25 MG/ML VIAL IVP SCH ×2 (05:56→13:15)
[2018-02-19] MEDS: PRILOSEC PO SCH (05:56)
[2018-02-19] MEDS: SODIUM CHLORIDE 1,000 ML IV SCH (06:08)
[2018-02-19] MEDS: VANCOMYCIN 1 GM in SODIUM CHLORIDE 250 ML IV SCH ×2 (06:10→12:36)
[2018-02-19] MEDS: ROCEPHIN 1 GM in SODIUM CHLORIDE 50 ML IV SCH (09:23)
[2018-02-19] MEDS: BENTYL PO SCH ×2 (09:24→15:19)
[2018-02-19] MEDS: MYLICON PO SCH (09:25)
[2018-02-19] MEDS: MULTIVITAMIN TABLET PO SCH (09:25)
[2018-02-19] MEDS: NEURONTIN PO SCH (09:25)
[2018-02-19] MEDS: MESALAMINE PO SCH (09:25)
[2018-02-19] MEDS: FERROUS SULFATE PO SCH (09:25)
[2018-02-19] MEDS: MOBIC PO SCH (09:25)
[2018-02-19 15:04] VITALS: BP 129/65; TEMP 98.3
--- NOTE | 2018-02-20 10:19 | PN ---
DATE OF SERVICE: 02/16/18 SUBJECTIVE: The patient was admitted from the office yesterday for a fever of 102. Cough and congestion, shortness of breath. Chest x-ray did not show any pneumonia but CT chest bilateral pneumonia. The patient has been complaining of lower back pain from coughing. REVIEW OF SYSTEMS: CONSTITUTIONAL: No fever, no chills. HEENT: Normal. ENDOCRINE: No weight gain, no weight loss. CVS: No angina symptoms. No CHF symptoms. No palpitations. No atypical chest pain for CAD. Shortness of breath. No PND, no orthopnea. RESPIRATORY: Cough and congestion. No hemoptysis. GI: No nausea, no vomiting. No abdominal pain. : No hematuria. No polyuria. MUSCULOSKELETAL: Lower back pain. PSYCHIATRIC: Not anxious. No depression. No suicidal thoughts. No homicidal thoughts. SKIN: Intact. No rash. PHYSICAL EXAMINATION: V/S: BP 132/74, respiratory rate 16, heart rate 68, temperature 97.9, saturation 97 on room air. GENERAL: Sick looking male lying in bed. HEENT: Normocephalic, atraumatic. Mucosa dry. Pallor positive. No icterus. NECK: Supple. No JVD, no carotid bruit. No lymphadenopathy. LUNGS: Decreased breath sounds with basilasr crackles. HEART: S1, S2 normal. No S3. No murmur, gallop or regurgitation. ABDOMEN: Soft, nontender. Bowel sounds active. No rigidity. No rebound or guarding. No CVA tenderness. EXTREMITIES: No cyanosis, clubbing or pedal edema. MUSCULOSKELETAL: No joint swelling. NEUROLOGIC: Awake, alert. No focal deficit. LYMPHATIC: No lymph nodes palpable. SKIN: Intact. LABS: White count 11.48, hemoglobin 12.2, hematocrit 35.7, platelet count 202. Sodium 137, potassium 4.5, chloride 104, bicarb 25, BUN 16, creatinine 0.84, glucose 185. ASSESSMENT: 1. BIBASILAR PNEUMONIA 2. LOWER BACK PAIN 3. HISTORY OF CROHN'S COLITIS 4. BRADYCARDIA 5. ULCERATIVE COLITIS 6. HISTORY OF MEDICAL MARIJUANA USE 7. DEPRESSION/ANXIETY PLAN: 1. Continue Rocephin 2. Duonebs 3. Dilaudid p.r.n. 4. Demerol 5. Solu-Medrol 6. Phenergan with Codeine TIME SPENT: More than 35 minutes MTDD
--- NOTE | 2018-02-20 10:49 | DS ---
DATE OF SERVICE: 02/19/18 FINAL DIAGNOSIS: 1. Persistent pneumonia, bibasilar and right upper lobe new finding 2. History of skin graft to the face 3. Bradycardia 4. Ulcerative colitis 5. Depression 6. Anxiety 7. Multiple back surgeries DISCHARGE INSTRUCTIONS: Admit patient to the transitional care unit for continued IV antibiotics and breathing treatments for the persistent pneumonia. Continue the home medication , breathing treatments. Daily I&O's MEDICATIONS AT DISCHARGE: Phenergan with codeine Rocephin 1 gram daily Vancomycin DUO NEBS IV fluids DIET INSTRUCTIONS: As tolerated ACTIVITY: As tolerated SMOKING: Counseling for smoking done. DISEASE SPECIFIC EDUCATION: Pneumonia and pneumonia vaccination been discussed and verbalized understanding. HOSPITAL COURSE: Dell Núñez a 42 year old male was admitted from the office for the fever, fever was running almost 102.4. CT scan showed the bilateral pneumonia. The patient also started on the Rocephin and breathing treatments. The patient is still coughing and congested. The patient seemed to be better but things got worse and he kept with persistent coughing. Repeat chest x-ray was done which showed the persistent basilar pneumonia in the right upper lobe infiltrates and no new findings. At that time it was planned that the patient would benefit from the intermediate manager IV antibiotics so the patient being admitted to the transitional care. TIME SPENT: MORE THAN 65 MINUTES MTDD
--- NOTE | 2018-02-20 15:53 | PN ---
DATE OF SERVICE: 02/18/18 SUBJECTIVE: Dell Núñez who came to the office with the cough and congestion and shortness of breath and had fever of 102 admitted directly from the office. Temperature was 102.4. Chest x-ray was negative. Started on the Rocephin 1 gram and steroids and the breathing treatment. Temperature went down to 101.4. CT chest was done and chest x-ray was negative by next day showed bibasilar pneumonia. Continued with the antibiotics and gradually started feeling better. Did not have any complications. Coughing and congestion is better and fever has decreased. REVIEW OF SYSTEMS: CONSTITUTIONAL: No fever, no chills. HEENT: Normal. ENDOCRINE: No weight gain, no weight loss. CVS: No angina symptoms. No CHF symptoms. No palpitations. No atypical chest pain for CAD. No shortness of breath. No PND, no orthopnea. RESPIRATORY: No cough, no hemoptysis. GI: No nausea, no vomiting. No abdominal pain. : No hematuria. No polyuria. MUSCULOSKELETAL: No joint swelling. PSYCHIATRIC: Not anxious. No depression. No suicidal thoughts. No homicidal thoughts. SKIN: Intact. No rash. PHYSICAL EXAMINATION: V/S: Temperature 97.8, pulse 60, respiratory rate 18, blood pressure 114/61 and pulse ox 96% on 2 liters. HEENT: Normocephalic, atraumatic. NECK: Supple. No JVD, no carotid bruit. No lymphadenopathy. LUNGS: Clear to auscultation. No rales or rhonchi. HEART: S1, S2 normal. No S3. No murmur, gallop or regurgitation. ABDOMEN: Soft, nontender. Bowel sounds active. No rigidity. No rebound or guarding. No CVA tenderness. EXTREMITIES: No cyanosis, clubbing or pedal edema. MUSCULOSKELETAL: No joint swelling. NEUROLOGIC: Awake, alert. No focal deficit. LYMPHATIC: No lymph nodes palpable. SKIN: Intact. LABS: WBC 13.17, hgb 11.1, hct 33.0, plt count 190, Sodium 139, potassium 4.8, chloride 107, bicarb 26, BUN 19, creatinine 0.74 and glucose 142. ASSESSMENT: 1. Bilateral pneumonia, community acquired 2. History of hypertension 3. Chronic back pain 4. Sinus bradycardia 5. Ulcerative colitis 6. Osteoarthritis 7. DJD spine 8. Anxiety 9. Depression 10.IBS 11.Two back surgeries 12.Two neck surgeries 13.Two hand surgeries 14.Carpel tunnel surgery PLAN: 1. Antibiotic Keflex 500mg twice a day for 7 days 2. Prednisone 10mg twice a day for 5 days 3. Continue rest of the home medications 4. Pneumonia and prevention of pneumonia with pneumonia vaccination been discussed. 5. Antibiotic use and diarrhea been discussed. 6. Probiotics and Yogurt Will follow the patient in daily rounds. TIME SPENT: More than 35 minutes MTDD
== END 2018-02-19 16:39 | disposition swing bed (61) | DRG 309 ==
LOC: MEDSURG B 11:52
PROVIDERS: ADMIT Emergency Medicine; ATTEND Emergency Medicine
DX: R00.1 Bradycardia, unspecified (principal); K51.90 Ulcerative colitis, unspecified, without complications; K90.9 Intestinal malabsorption, unspecified; F41.8 Other specified anxiety disorders; D50.9 Iron deficiency anemia, unspecified; J06.9 Acute upper respiratory infection, unspecified
CPT/HCPCS: 36415; 80053; 81001; 85025; 86617; 86757; 87040; 87081; 87502; 87651; 87798; 93005; 93010; 94150; 94640; 96365

== ENCOUNTER 2018-02-19 16:40 | Inpatient (IN) ==
[2018-02-19] MEDS ORDERED: TYLENOL PO PRN (17:27)
[2018-02-19] MEDS ORDERED: PHENERGAN WITH CODEINE 6.25/10 MG/5 ML PO PRN (17:31)
[2018-02-19] MEDS: PRILOSEC PO SCH (17:49)
[2018-02-19] MEDS: CARAFATE PO SCH ×2 (17:49→21:49)
[2018-02-19] MEDS: MOBIC PO SCH (17:49)
[2018-02-19] MEDS: DUONEB NEB SCH ×2 (17:58→23:49)
[2018-02-19 18:17] VITALS: BMI 22.4
[2018-02-19] MEDS ORDERED: NON-FORMULARY MEDICATION (Hydroxyzine Hcl [Hydroxyzine Hcl] 10 MG) PO SCH (21:00)
[2018-02-19] MEDS ORDERED: SIMETHICONE 125 MG PO SCH (21:00)
[2018-02-19] MEDS ORDERED: IMODIUM A-D PO SCH (21:00)
[2018-02-19] MEDS: SOLU-MEDROL 40 MG IVP SCH (21:48)
[2018-02-19] MEDS: NEURONTIN PO SCH (21:49)
[2018-02-19] MEDS: BENADRYL PO SCH (21:49)
[2018-02-19] MEDS: BENTYL PO SCH (21:49)
[2018-02-19] MEDS: DESYREL PO SCH (21:49)
[2018-02-19] MEDS: VANCOMYCIN 1 GM in SODIUM CHLORIDE 250 ML IV SCH (21:50)
[2018-02-19] MEDS ORDERED: DEMEROL 25 MG/ML VIAL ONE (22:11)
[2018-02-19] MEDS: DEMEROL 100 MG/ML SYRINGE IVP SCH (22:14)
[2018-02-20] MEDS ORDERED: DEMEROL 25 MG/ML VIAL ONE (04:33)
[2018-02-20] MEDS: VANCOMYCIN 1 GM in SODIUM CHLORIDE 250 ML IV SCH ×3 (05:24→21:35)
[2018-02-20] MEDS: DEMEROL 100 MG/ML SYRINGE IVP SCH (05:26)
[2018-02-20] MEDS: SOLU-MEDROL 40 MG IVP SCH ×3 (05:26→21:27)
[2018-02-20] MEDS: CARAFATE PO SCH ×4 (05:37→21:36)
[2018-02-20] MEDS: PRILOSEC PO SCH ×2 (05:37→17:08)
[2018-02-20] MEDS: DUONEB NEB SCH ×3 (05:40→20:20)
[2018-02-20] MEDS ORDERED: IMODIUM PO PRN (08:09)
[2018-02-20] MEDS ORDERED: [UNRECOGNIZED DRUG - OTHER] RC PRN (08:54)
[2018-02-20] MEDS ORDERED: MESALAMINE RC PRN (08:54)
[2018-02-20] MEDS ORDERED: NON-FORMULARY MEDICATION (Ferrous Sulfate [Iron] 325 MG) PO SCH (09:00)
[2018-02-20] MEDS ORDERED: NON-FORMULARY MEDICATION (Hydroxyzine Hcl [Hydroxyzine Hcl] 10 MG) PO SCH (09:00)
[2018-02-20] MEDS ORDERED: MULTIVITAMIN WITH IRON PO SCH (09:00)
[2018-02-20] MEDS: MYLICON PO SCH ×2 (09:41→21:36)
[2018-02-20] MEDS: BENTYL PO SCH ×3 (09:41→21:36)
[2018-02-20] MEDS: MUCINEX PO SCH ×2 (09:41→21:36)
[2018-02-20] MEDS: MOBIC PO SCH ×2 (09:42→17:08)
[2018-02-20] MEDS: NEURONTIN PO SCH ×2 (09:42→21:36)
[2018-02-20] MEDS: FERROUS SULFATE PO SCH (09:42)
[2018-02-20] MEDS: MULTIVITAMIN TABLET PO SCH (09:43)
[2018-02-20] MEDS: MESALAMINE PO SCH ×2 (09:43→21:35)
[2018-02-20] MEDS: ROCEPHIN 1 GM in SODIUM CHLORIDE 50 ML IV SCH (09:43)
[2018-02-20] MEDS: SODIUM CHLORIDE 1,000 ML IV SCH ×4 (09:44→16:07)
[2018-02-20] MEDS: DEMEROL 25 MG/ML VIAL IVP SCH ×2 (13:10→21:39)
[2018-02-20] MEDS ORDERED: VENOFER 200 MG in SODIUM CHLORIDE 100 ML IV ONE (13:29)
[2018-02-20] MEDS: DESYREL PO SCH (21:36)
[2018-02-20] MEDS: BENADRYL PO SCH (21:36)
[2018-02-21] MEDS: DUONEB NEB SCH ×4 (04:43→20:08)
[2018-02-21] MEDS: SOLU-MEDROL 40 MG IVP SCH ×3 (05:18→21:49)
[2018-02-21] MEDS: DEMEROL 25 MG/ML VIAL IVP SCH ×3 (05:19→21:49)
[2018-02-21] MEDS: VANCOMYCIN 1 GM in SODIUM CHLORIDE 250 ML IV SCH ×3 (06:05→21:49)
[2018-02-21] MEDS: PRILOSEC PO SCH ×2 (06:05→17:11)
[2018-02-21] MEDS: CARAFATE PO SCH ×4 (06:05→21:02)
[2018-02-21] MEDS: BENTYL PO SCH ×3 (08:39→21:02)
[2018-02-21] MEDS: ROCEPHIN 1 GM in SODIUM CHLORIDE 50 ML IV SCH (08:39)
[2018-02-21] MEDS: MESALAMINE PO SCH (08:39)
[2018-02-21] MEDS: MOBIC PO SCH ×2 (08:40→17:11)
[2018-02-21] MEDS: MULTIVITAMIN TABLET PO SCH (08:40)
[2018-02-21] MEDS: MYLICON PO SCH ×2 (08:40→21:01)
[2018-02-21] MEDS: NEURONTIN PO SCH ×2 (08:40→21:02)
[2018-02-21] MEDS: FERROUS SULFATE PO SCH (08:40)
[2018-02-21] MEDS: MUCINEX PO SCH ×2 (08:40→21:02)
--- NOTE | 2018-02-21 11:07 | PN ---
DATE OF SERVICE: 02/20/18 SUBJECTIVE: Still coughing and congested and not able to get any phlegm feels like it is stuck in the throat. REVIEW OF SYSTEMS: CONSTITUTIONAL: No fever, no chills. HEENT: Normal. ENDOCRINE: No weight gain, no weight loss. CVS: No angina symptoms. No CHF symptoms. No palpitations. No atypical chest pain for CAD. No shortness of breath. No PND, no orthopnea. RESPIRATORY: No cough, no hemoptysis. GI: No nausea, no vomiting. No abdominal pain. : No hematuria. No polyuria. MUSCULOSKELETAL: No joint swelling. PSYCHIATRIC: Not anxious. No depression. No suicidal thoughts. No homicidal thoughts. SKIN: Intact. No rash. PHYSICAL EXAMINATION: V/S: Blood pressure 132/78, respiratory rate 14, heart rate 68, temperature 98.6 with saturation 100%. HEENT: Normocephalic, atraumatic. Mucosa dry. Pallor positive. No icterus. NECK: Supple. No JVD, no carotid bruit. No lymphadenopathy. LUNGS: Decreased and basilar crackles. Clear to auscultation. No rales or rhonchi. HEART: S1, S2 normal. No S3. No murmur, gallop or regurgitation. ABDOMEN: Soft, nontender. Bowel sounds active. No rigidity. No rebound or guarding. No CVA tenderness. EXTREMITIES: No cyanosis, clubbing or pedal edema. MUSCULOSKELETAL: No joint swelling. NEUROLOGIC: Awake, alert. No focal deficit. LYMPHATIC: No lymph nodes palpable. SKIN: Intact. LABS: WBC 13.77, hgb 10.8, hct 32.3, plt count 209, sodium 140, potassium 4.1, chloride 106, bicarb 27, BUN 18, creatinine 0.76, glucose 146. ASSESSMENT: 1. Persistent bibasilar pneumonia, community acquired pneumonia 2. Shortness of breath 3. History of ulcerative colitis 4. Osteoarthritis 5. DJD spine PLAN: 1. Start the antibiotic Rocephin and Vancomycin 3. DUO NEBS 4. Solu-Medrol 5. Daily I&O's 6. Continue the rest of the medication 7. Pain medication TIME SPENT: More than 35 minutes MTDD
--- NOTE | 2018-02-21 11:14 | HP ---
DATE OF SERVICE: 02/19/18 CHIEF COMPLAINT/HISTORY OF PRESENT ILLNESS: Dell Núñez a 42 year old male was admitted from the office for the fever, fever was running almost 102.4. CT scan showed the bilateral pneumonia. The patient also started on the Rocephin and breathing treatments. The patient is still coughing and congested. The patient seemed to be better but things got worse and he kept with persistent coughing. Repeat chest x-ray was done which showed the persistent basilar pneumonia in the right upper lobe infiltrates and no new findings. At that time it was planned that the patient would benefit from the residential IV antibiotics so the patient being admitted to the transitional care. REVIEW OF SYSTEMS: CONSTITUTIONAL: No fever, no chills. HEENT: Normal. ENDOCRINE: No weight gain; no weight loss. CVS: No chest pain. No PND, no orthopnea. Shortness of breath. No PND, no orthopnea. RESPIRATORY: Cough,Congestion. No hemoptysis. GI: No nausea, no vomiting. No abdominal pain. No melena. : No hematuria. No polyuria. MUSCULOSKELETAL: Lower back pain PSYCHIATRIC: Not anxious. No depression. No suicidal thoughts. No homicidal thoughts. SKIN: Intact, no open lesions. PAST MEDICAL HISTORY: Back pain Carpel Tunnel Syndrome of right wrist Ulcerative colitis PAST SURGICAL HISTORY: Back surgery 1995 Neck/hand surgery (carpel Tunnel right) 2012 Back 2013 PERSONAL HISTORY: The patient is . Denies any alcohol, tobacco or illicit drug use. FAMILY HISTORY: The patient reports no known family medical history MEDICATIONS: Simethicone Benadryl Apriso Multivitamin Iron Prilosec Prednisone Carafate Neurontin Dicyclomine Keflex Trazodone Hydroxyzine Mobic Imodium ALLERGIES: No known allergies PHYSICAL EXAMINATION: V/S: Blood pressure 129/65, respiratory rate 20, pulse 76, temperature 98.3 and pulse ox 94%. HEENT: Normocephalic, atraumatic. Mucosa dry. Pallor positive. No icterus. NECK: Supple. No JVD, no carotid bruit. No lymphadenopathy. LUNGS: Decreased and basilar crackles. Clear to auscultation. No rales or rhonchi. HEART: S1, S2 normal. No S3. No murmur, gallop or regurgitation. ABDOMEN: Soft, nontender. Bowel sounds active. No rigidity. No rebound or guarding. No CVA tenderness. EXTREMITIES: No cyanosis, clubbing or pedal edema. MUSCULOSKELETAL: No joint swelling. NEUROLOGIC: Awake, alert. No focal deficit. LYMPHATIC: No lymph nodes palpable. SKIN: Intact. ASSESSMENT: 1. Persistent bibasilar pneumonia, community acquired pneumonia 2. Shortness of breath 3. History of ulcerative colitis 4. Osteoarthritis 5. DJD spine PLAN: 1. Admit patient to the transition care unit 2. Start the antibiotic Rocephin and Vancomycin 3. DUO NEBS 4. Solu-Medrol 5. Daily I&O's 6. Continue the rest of the medication 7. Pain medication TIME SPENT: MORE THAN 70 minutes MTDD
[2018-02-21] MEDS ORDERED: DEMEROL 25 MG/ML VIAL IVP STA (17:06)
[2018-02-21] MEDS: NON-FORMULARY MEDICATION (Hydroxyzine Hcl [Hydroxyzine Hcl] 10 MG) PO PRN (21:01)
[2018-02-21] MEDS: BENADRYL PO SCH (21:01)
[2018-02-21] MEDS: DESYREL PO SCH (21:02)
[2018-02-22] MEDS: SODIUM CHLORIDE 1,000 ML IV SCH (00:46)
[2018-02-22] MEDS: MESALAMINE PO SCH ×2 (01:21→08:00)
[2018-02-22] MEDS: DUONEB NEB SCH ×5 (04:48→21:38)
[2018-02-22] MEDS: VANCOMYCIN 1 GM in SODIUM CHLORIDE 250 ML IV SCH ×2 (06:03→13:55)
[2018-02-22] MEDS: PRILOSEC PO SCH ×2 (06:03→16:42)
[2018-02-22] MEDS: CARAFATE PO SCH ×3 (06:03→16:42)
[2018-02-22] MEDS: SOLU-MEDROL 40 MG IVP SCH ×2 (06:03→13:04)
[2018-02-22] MEDS: DEMEROL 25 MG/ML VIAL IVP SCH ×2 (06:10→13:04)
[2018-02-22] MEDS: MUCINEX PO SCH (08:00)
[2018-02-22] MEDS: MULTIVITAMIN TABLET PO SCH (08:00)
[2018-02-22] MEDS: MOBIC PO SCH ×2 (08:00→16:42)
[2018-02-22] MEDS: BENTYL PO SCH ×2 (08:00→14:48)
[2018-02-22] MEDS: FERROUS SULFATE PO SCH (08:01)
[2018-02-22] MEDS: NEURONTIN PO SCH (08:01)
[2018-02-22] MEDS ORDERED: VENOFER 200 MG in SODIUM CHLORIDE 100 ML IV ONE (08:06)
[2018-02-22] MEDS: ROCEPHIN 1 GM in SODIUM CHLORIDE 50 ML IV SCH (08:38)
--- NOTE | 2018-02-22 10:05 | PN ---
DATE OF SERVICE: 02/21/18 SUBJECTIVE: The patient is up and about walking, still coughing and congestion. Getting IV antibiotics. REVIEW OF SYSTEMS: CONSTITUTIONAL: No fever, no chills. HEENT: Normal. ENDOCRINE: No weight gain, no weight loss. CVS: No angina symptoms. No CHF symptoms. No palpitations. No atypical chest pain for CAD. No shortness of breath. No PND, no orthopnea. RESPIRATORY: No cough, no hemoptysis. GI: No nausea, no vomiting. No abdominal pain. : No hematuria. No polyuria. MUSCULOSKELETAL: No joint swelling. PSYCHIATRIC: Not anxious. No depression. No suicidal thoughts. No homicidal thoughts. SKIN: Intact. No rash. PHYSICAL EXAMINATION: V/S: Blood pressure 142/77, respiratory rate 20, heart rate 68, temperature 97.7 and saturation 98%. HEENT: Normocephalic, atraumatic. Mucosa dry. Pallor positive. No icterus. NECK: Supple. No JVD, no carotid bruit. No lymphadenopathy. LUNGS: Basilar crackles with mild expiratory wheeze. No rales or rhonchi. HEART: S1, S2 normal. No S3. No murmur, gallop or regurgitation. ABDOMEN: Soft, nontender. Bowel sounds active. No rigidity. No rebound or guarding. No CVA tenderness. EXTREMITIES: No cyanosis, clubbing or pedal edema. MUSCULOSKELETAL: No joint swelling. NEUROLOGIC: Awake, alert. No focal deficit. LYMPHATIC: No lymph nodes palpable. SKIN: Intact. LABS: WBC 13.77, hgb 10.8, hct 32.3, plt count 209, sodium 140, potassium 4.1, chloride 106, bicarb 27, BUN 18, creatinine 0.76 and glucose 146. ASSESSMENT: 1. Persistent pneumonia, facility acquired pneumonia and community acquired pneumonia 2. Lower back pain, several back surgeries 3. Sinus bradycardia 4. Ulcerative colitis PLAN: 1. Continue the Rocephin and Vancomycin, breathing treatments and steroids. TIME SPENT: More than 35 minutes MTDD
[2018-02-22] MEDS: MYLICON PO SCH (10:12)
--- NOTE | 2018-02-22 15:27 | DI ---
EXAM: Two views of the chest. History: Pneumonia, cough, short of breath Comparison: Chest radiograph 02/18/2018 Findings: Heart size is upper limits of normal. Persistent bibasilar subsegmental atelectasis. No definite acute infiltrates. No appreciable pleural fluid and no pneumothorax. No acute osseous abno rmalities. Postsurgical changes of the cervical spine. Impression: Bibasilar subsegmental atelectasis. No definite acute infiltrates.
[2018-02-23] MEDS: DUONEB NEB SCH ×4 (04:34→21:36)
[2018-02-23] MEDS: BENADRYL PO SCH ×2 (05:04→20:54)
[2018-02-23] MEDS: BENTYL PO SCH ×4 (05:04→20:52)
[2018-02-23] MEDS: CARAFATE PO SCH ×5 (05:05→20:54)
[2018-02-23] MEDS: MESALAMINE PO SCH ×3 (05:05→20:54)
[2018-02-23] MEDS: MUCINEX PO SCH ×3 (05:05→20:53)
[2018-02-23] MEDS: DESYREL PO SCH ×2 (05:05→20:53)
[2018-02-23] MEDS: MYLICON PO SCH ×3 (05:05→20:52)
[2018-02-23] MEDS: DEMEROL 25 MG/ML VIAL IVP SCH ×4 (05:05→20:53)
[2018-02-23] MEDS: SOLU-MEDROL 40 MG IVP SCH ×4 (05:06→20:53)
[2018-02-23] MEDS: NEURONTIN PO SCH ×3 (05:06→20:53)
[2018-02-23] MEDS: VANCOMYCIN 1 GM in SODIUM CHLORIDE 250 ML IV SCH ×4 (05:06→20:48)
[2018-02-23] MEDS: PRILOSEC PO SCH ×2 (05:59→17:12)
[2018-02-23] MEDS: ROCEPHIN 1 GM in SODIUM CHLORIDE 50 ML IV SCH (08:30)
[2018-02-23] MEDS: MOBIC PO SCH ×2 (08:32→17:12)
[2018-02-23] MEDS: MULTIVITAMIN TABLET PO SCH (08:33)
[2018-02-23] MEDS: FERROUS SULFATE PO SCH (08:33)
[2018-02-23] MEDS: SODIUM CHLORIDE 1,000 ML IV SCH ×2 (13:13)
--- NOTE | 2018-02-23 14:04 | PN ---
DATE OF SERVICE: 02/22/18 SUBJECTIVE: The patient was admitted with bilateral pneumonia. He is receiving antibiotics and is feeling some better. He has cough and congestion. He complains of lower back pain. The patient has had multiple surgeries on the back. REVIEW OF SYSTEMS: CONSTITUTIONAL: No fever, no chills. HEENT: Normal. ENDOCRINE: No weight gain, no weight loss. CVS: No angina symptoms. No CHF symptoms. No palpitations. No atypical chest pain for CAD. No shortness of breath. No PND, no orthopnea. RESPIRATORY: Cough and congestion. No hemoptysis. GI: No nausea, no vomiting. No abdominal pain. : No hematuria. No polyuria. MUSCULOSKELETAL: Lower back pain. PSYCHIATRIC: Not anxious. No depression. No suicidal thoughts. No homicidal thoughts. SKIN: Intact. No rash. PHYSICAL EXAMINATION: V/S: BP 136/76, respiratory rate 18, heart rate 66, temperature 98.1, saturation 100%. HEENT: Normocephalic, atraumatic. Mucosa dry. Pallor positive. No icterus. NECK: Supple. No JVD, no carotid bruit. No lymphadenopathy. LUNGS: Decreased with basilar crackles. Clear to auscultation. No rales or rhonchi. HEART: S1, S2 normal. No S3. No murmur, gallop or regurgitation. ABDOMEN: Soft, nontender. Bowel sounds active. No rigidity. No rebound or guarding. No CVA tenderness. EXTREMITIES: No cyanosis or clubbing. MUSCULOSKELETAL: No joint swelling. NEUROLOGIC: Awake, alert. No focal deficit. LYMPHATIC: No lymph nodes palpable. SKIN: Intact. LABS: White count 13.77, hemoglobin 10.8, hematocrit 32.2, platelet count 209. Sodium 140, potassium 4.1, chloride 106, bicarb 27, BUN 18, creatinine 0.76, glucose 146. ASSESSMENT: 1. BILATERAL PNEUMONIA, PATCHY PNEUMONIA 2. ANEMIA NEEDING IRON INFUSION 3. LOWER BACK PAIN 4. STATUS POST BACK SURGERIES 5. ULCERATIVE COLITIS PLAN: 1. Continue Rocephin 2. Vancomycin 3. Duonebs 4. Steroids 5. Daily I & O's TIME SPENT: More than 35 minutes MTDD
[2018-02-24] MEDS: DUONEB NEB SCH ×4 (04:33→21:17)
[2018-02-24] MEDS: PRILOSEC PO SCH ×2 (05:33→17:46)
[2018-02-24] MEDS: VANCOMYCIN 1 GM in SODIUM CHLORIDE 250 ML IV SCH ×3 (05:34→20:19)
[2018-02-24] MEDS: SOLU-MEDROL 40 MG IVP SCH ×3 (05:34→20:18)
[2018-02-24] MEDS: CARAFATE PO SCH ×4 (05:34→20:23)
[2018-02-24] MEDS: DEMEROL 25 MG/ML VIAL IVP SCH ×3 (05:35→20:12)
[2018-02-24] MEDS: ROCEPHIN 1 GM in SODIUM CHLORIDE 50 ML IV SCH (08:23)
[2018-02-24] MEDS: FERROUS SULFATE PO SCH (08:26)
[2018-02-24] MEDS: MULTIVITAMIN TABLET PO SCH (08:26)
[2018-02-24] MEDS: BENTYL PO SCH ×3 (08:26→20:22)
[2018-02-24] MEDS: NEURONTIN PO SCH ×2 (08:26→20:22)
[2018-02-24] MEDS: MOBIC PO SCH ×2 (08:26→17:43)
[2018-02-24] MEDS: MUCINEX PO SCH ×2 (08:27→20:23)
[2018-02-24] MEDS: MYLICON PO SCH ×2 (08:27→20:22)
[2018-02-24] MEDS: MESALAMINE PO SCH ×2 (08:27→20:18)
--- NOTE | 2018-02-24 15:52 | CT ---
EXAM: CT of the abdomen pelvis without contrast History: Abdominal pain and diarrhea. Comparison: CT abdomen pelvis 01/19/2018 Technique: Multiplanar CT images through the abdomen pelvis were obtained without the administration of IV contrast Findings: Mild bibasilar lung infiltrates and trace bilateral pleural effusions. No acute osseous a bnormalities. Moderate to severe degenerative disc disease again seen at L4-L5. Punctate nonobstructing right renal calculi again noted. No left renal calculi. No hydronephrosis. No peripancreatic inflammation. No focal liver or splenic lesions. Adrenal glands are unremarkable . Nondilated fluid filled loops of small bowel. Mild to moderate brooks colonic wall thickening with ad jacent inflammation. No free air and no ascites. Bladder is not well distended. Prostate is not en larged. There is body wall edema. Impression: 1. Mild to moderate pancolitis. No bowel obstruction. 2. Mild bibasilar lung infiltrates and trace bilateral pleural effusions. 3. Nonobstructing right nephrolithiasis. 4. Body wall edema
[2018-02-24] MEDS: VANCOCIN PO SCH ×2 (17:45→23:53)
[2018-02-24] MEDS: BENADRYL PO SCH (20:22)
[2018-02-24] MEDS: DESYREL PO SCH (20:22)
[2018-02-25] MEDS ORDERED: DEMEROL 25 MG/ML VIAL IM STA (01:05)
[2018-02-25] MEDS ORDERED: DEMEROL 25 MG/ML VIAL IV STA (01:05)
[2018-02-25] MEDS: SODIUM CHLORIDE 1,000 ML IV SCH (01:28)
[2018-02-25] MEDS ORDERED: DEMEROL 25 MG/ML VIAL ONE (02:11)
[2018-02-25] MEDS: NON-FORMULARY MEDICATION (Hydroxyzine Hcl [Hydroxyzine Hcl] 10 MG) PO PRN (02:25)
[2018-02-25] MEDS: SOLU-MEDROL 40 MG IVP SCH ×3 (05:07→20:42)
[2018-02-25] MEDS: DUONEB NEB SCH ×4 (05:07→21:45)
[2018-02-25] MEDS: DEMEROL 25 MG/ML VIAL IVP SCH ×3 (05:13→17:02)
[2018-02-25] MEDS: VANCOCIN PO SCH ×4 (05:28→23:33)
[2018-02-25] MEDS: VANCOMYCIN 1 GM in SODIUM CHLORIDE 250 ML IV SCH ×3 (05:29→20:42)
[2018-02-25] MEDS: CARAFATE PO SCH ×4 (05:29→20:43)
[2018-02-25] MEDS: PRILOSEC PO SCH ×2 (05:33→16:58)
[2018-02-25] MEDS: MESALAMINE PO SCH ×2 (09:57→20:44)
[2018-02-25] MEDS: MOBIC PO SCH ×2 (09:58→16:58)
[2018-02-25] MEDS: MULTIVITAMIN TABLET PO SCH (09:58)
[2018-02-25] MEDS: BENTYL PO SCH ×3 (09:58→20:43)
[2018-02-25] MEDS: FERROUS SULFATE PO SCH (09:58)
[2018-02-25] MEDS: NEURONTIN PO SCH ×2 (09:59→20:42)
[2018-02-25] MEDS: ROCEPHIN 1 GM in SODIUM CHLORIDE 50 ML IV SCH (09:59)
[2018-02-25] MEDS: MYLICON PO SCH ×2 (09:59→20:43)
[2018-02-25] MEDS: MUCINEX PO SCH ×2 (09:59→20:43)
[2018-02-25] MEDS: DESYREL PO SCH (20:43)
[2018-02-25] MEDS: BENADRYL PO SCH (20:43)
[2018-02-26] MEDS: DEMEROL 25 MG/ML VIAL IVP SCH ×5 (00:10→23:21)
[2018-02-26] MEDS: DUONEB NEB SCH ×3 (04:51→14:11)
[2018-02-26] MEDS: VANCOMYCIN 1 GM in SODIUM CHLORIDE 250 ML IV SCH ×3 (05:14→20:44)
[2018-02-26] MEDS: VANCOCIN PO SCH ×4 (05:36→23:20)
[2018-02-26] MEDS: CARAFATE PO SCH ×4 (05:37→20:43)
[2018-02-26] MEDS: PRILOSEC PO SCH ×2 (05:38→16:50)
[2018-02-26] MEDS: MUCINEX PO SCH ×2 (07:59→20:42)
[2018-02-26] MEDS: BENTYL PO SCH ×3 (07:59→20:41)
[2018-02-26] MEDS: NEURONTIN PO SCH ×2 (07:59→20:43)
[2018-02-26] MEDS: MOBIC PO SCH ×2 (08:00→16:50)
[2018-02-26] MEDS: MYLICON PO SCH ×2 (08:00→20:43)
[2018-02-26] MEDS: ROCEPHIN 1 GM in SODIUM CHLORIDE 50 ML IV SCH (08:00)
[2018-02-26] MEDS: MULTIVITAMIN TABLET PO SCH (08:00)
[2018-02-26] MEDS: FERROUS SULFATE PO SCH (08:00)
[2018-02-26] MEDS: SOLU-MEDROL 40 MG IVP SCH ×2 (08:01→20:09)
[2018-02-26] MEDS: MESALAMINE PO SCH ×3 (09:42→20:41)
--- NOTE | 2018-02-26 11:28 | PN ---
DATE OF SERVICE: 02/23/18 SUBJECTIVE: Admitted with pneumonia, still coughing and congested. No fever, no chills. Unable to get phlegm. Chest x-ray looks somewhat better. REVIEW OF SYSTEMS: CONSTITUTIONAL: No fever, no chills. HEENT: Normal. ENDOCRINE: No weight gain, no weight loss. CVS: No angina symptoms. No CHF symptoms. No palpitations. No atypical chest pain for CAD. No shortness of breath. No PND, no orthopnea. RESPIRATORY: Cough and congestion. No hemoptysis. GI: No nausea, no vomiting. No abdominal pain. : No hematuria. No polyuria. MUSCULOSKELETAL: No joint swelling. PSYCHIATRIC: Not anxious. No depression. No suicidal thoughts. No homicidal thoughts. SKIN: Intact. No rash. PHYSICAL EXAMINATION: V/S: BP 125/72, respiratory rate 18, heart rate 77, temperature 97.7. HEENT: Normocephalic, atraumatic. Pallor positive. NECK: Supple. No JVD, no carotid bruit. No lymphadenopathy. LUNGS: Decreased breath sounds with basilar crackles. HEART: S1, S2 normal. No S3. No murmur, gallop or regurgitation. ABDOMEN: Soft, nontender. Bowel sounds active. No rigidity. No rebound or guarding. No CVA tenderness. EXTREMITIES: No cyanosis, clubbing or pedal edema. MUSCULOSKELETAL: No joint swelling. NEUROLOGIC: Awake, alert. No focal deficit. LYMPHATIC: No lymph nodes palpable. SKIN: Intact. LABS: White count 15.22, hemoglobin 10.9, hematocrit 32.4, platelet count 209. Sodium 139, potassium 4.0, chloride 104, bicarb 28, BUN 21, creatinine 0.73, glucose 137. ASSESSMENT: 1. PNEUMONIA, COMMUNITY ACQUIRED 2. ANEMIA NEEDING IRON INFUSION 3. COPD 4. ULCERATIVE COLITIS 5. OSTEOARTHRITIS 6. DJD SPINE PLAN: 1. Continue Rocephin, Vancomycin, Duonebs, Solu-Medrol 2. Out of bed to chair 3. Activity as tolerated TIME SPENT: More than 35 minutes MTDD
--- NOTE | 2018-02-26 11:38 | PN ---
DATE OF SERVICE: 02/24/18 SUBJECTIVE: The patient is complaining that he has been having left lower quadrant belly pain, nausea and diarrhea. The patient had almost three to four stools today, nonbloody. Cough and congestion. REVIEW OF SYSTEMS: CONSTITUTIONAL: No fever, no chills. HEENT: Normal. ENDOCRINE: No weight gain, no weight loss. CVS: No angina symptoms. No CHF symptoms. No palpitations. No atypical chest pain for CAD. No shortness of breath. No PND, no orthopnea. RESPIRATORY: Cough and congestion. No hemoptysis. GI: Nausea. No vomiting. Diarrhea. Left lower abdominal pain. : No hematuria. No polyuria. MUSCULOSKELETAL: No joint swelling. PSYCHIATRIC: Not anxious. No depression. No suicidal thoughts. No homicidal thoughts. SKIN: Intact. No rash. PHYSICAL EXAMINATION: V/S: BP 120/66, respiratory rate 20, heart rate 71, temperature 97.9, saturation 98. HEENT: Normocephalic, atraumatic. Mucosa dry. Pallor positive. No icterus. NECK: Supple. No JVD, no carotid bruit. No lymphadenopathy. LUNGS: Decreased breath sounds with basilar crackles. HEART: S1, S2 normal. No S3. No murmur, gallop or regurgitation. ABDOMEN: Tenderness, left lower quadrant. No rigidity. Bowel sounds hyperactive. No rebound or guarding. No CVA tenderness. EXTREMITIES: No cyanosis, clubbing or pedal edema. MUSCULOSKELETAL: No joint swelling. NEUROLOGIC: Awake, alert. No focal deficit. LYMPHATIC: No lymph nodes palpable. SKIN: Intact. LABS: White count 15.22, hemoglobin 10.9, hematocrit 32.4, platelet count 209. Sodium 139, potassium 4.0, chloride 104, bicarb 28, BUN 21, creatinine 0.73, glucose 137. ASSESSMENT: 1. ABDOMINAL PAIN AND DIARRHEA, RULE OUT C. DIFF 2. COMMUNITY ACQUIRED PNEUMONIA 3. ANEMIA 4. NEPHROLITHIASIS 5. MODERATE TO SEVERE DJD SPINE 4. SINUS BRADYCARDIA 5. ULCERATIVE COLITIS 6. DEPRESSION/ANXIETY PLAN: 1. CT abdomen and pelvis 2. Stool for occult blood test 3. Vancomycin 250 mg q.6hr 4. Will follow the patient in daily rounds TIME SPENT: More than 35 minutes [id number]
--- NOTE | 2018-02-26 11:46 | PN ---
DATE OF SERVICE: 02/25/18 SUBJECTIVE: The patient is having diarrhea. C. diff was ordered. CT abdomen and pelvis done which showed pancolitis. Stool for C. diff was positive. The patient is on contact isolation. He complains of a lot of abdominal pain, left side of abdomen. REVIEW OF SYSTEMS: CONSTITUTIONAL: No fever, no chills. HEENT: Normal. ENDOCRINE: No weight gain, no weight loss. CVS: No angina symptoms. No CHF symptoms. No palpitations. No atypical chest pain for CAD. No shortness of breath. No PND, no orthopnea. RESPIRATORY: No cough, no hemoptysis. GI: Abdominal pain. No nausea, no vomiting. : No hematuria. No polyuria. MUSCULOSKELETAL: No joint swelling. PSYCHIATRIC: Not anxious. No depression. No suicidal thoughts. No homicidal thoughts. SKIN: Intact. No rash. PHYSICAL EXAMINATION: GENERAL: Sick looking male lying in bed. V/S: BP 129/79, respiratory rate 20, heart rate 82, temperature 97.8, saturation 99% HEENT: Normocephalic, atraumatic. Mucosa dry. Pallor positive. NECK: Supple. No JVD, no carotid bruit. No lymphadenopathy. LUNGS: Decreased breath sounds with basilar crackles. HEART: S1, S2 normal. No S3. No murmur, gallop or regurgitation. ABDOMEN: Sluggish bowel sounds. Tenderness left lower quadrant. No rigidity, no guarding. Pallor positive, no icterus. EXTREMITIES: No cyanosis, clubbing or pedal edema. MUSCULOSKELETAL: No joint swelling. NEUROLOGIC: Awake, alert. No focal deficit. LYMPHATIC: No lymph nodes palpable. SKIN: Intact. LABS: White count 15.2, hemoglobin 10.9, hematocrit 32.4, platelet count 209. Sodium 139, potassium 4.0, chloride 104, bicarb 28, BUN 21, creatinine 0.73, glucose 137. ASSESSMENT: 1. C. DIFF COLITIS 2. COMMUNITY ACQUIRED PNEUMONIA 3. ANEMIA 4. LOWER BACK PAIN 5. PANCOLITIS 6. HISTORY OF ULCERATIVE COLITIS PLAN: 1. Vancomycin 250 mg q.6hr IV 2. Rocephin 1 gm daily 3. Continue Vancomycin p.o. 4. Contact isolation TIME SPENT: More than 35 minutes MTDD
[2018-02-26] MEDS: SODIUM CHLORIDE 1,000 ML IV SCH ×2 (13:28)
[2018-02-26] MEDS ORDERED: DUONEB NEB PRN (15:31)
[2018-02-26] MEDS: DESYREL PO SCH (20:42)
[2018-02-26] MEDS: BENADRYL PO SCH (20:42)
[2018-02-27] MEDS: VANCOCIN PO SCH ×4 (05:25→23:15)
[2018-02-27] MEDS: VANCOMYCIN 1 GM in SODIUM CHLORIDE 250 ML IV SCH ×3 (05:25→20:14)
[2018-02-27] MEDS: PRILOSEC PO SCH ×2 (05:29→16:48)
[2018-02-27] MEDS: CARAFATE PO SCH ×4 (05:29→20:12)
[2018-02-27] MEDS: DEMEROL 25 MG/ML VIAL IVP SCH ×4 (05:31→23:12)
[2018-02-27] MEDS: MOBIC PO SCH ×2 (07:58→16:48)
[2018-02-27] MEDS: MYLICON PO SCH ×2 (07:59→20:12)
[2018-02-27] MEDS: NEURONTIN PO SCH ×2 (07:59→20:13)
[2018-02-27] MEDS: BENTYL PO SCH ×3 (07:59→20:13)
[2018-02-27] MEDS: FERROUS SULFATE PO SCH (07:59)
[2018-02-27] MEDS: MUCINEX PO SCH ×2 (07:59→20:13)
[2018-02-27] MEDS: MULTIVITAMIN TABLET PO SCH (07:59)
[2018-02-27] MEDS: MESALAMINE PO SCH ×2 (08:00→20:13)
[2018-02-27] MEDS: SOLU-MEDROL 40 MG IVP SCH ×2 (08:00→20:11)
--- NOTE | 2018-02-27 09:13 | PN ---
DATE OF SERVICE: 02/26/18 SUBJECTIVE: Stool for C-Diff came positive. WBC elevated up to 19,000. Complains about the abdominal pain and a nausea. REVIEW OF SYSTEMS: CONSTITUTIONAL: No fever, no chills. HEENT: Normal. ENDOCRINE: No weight gain, no weight loss. CVS: No angina symptoms. No CHF symptoms. No palpitations. No atypical chest pain for CAD. No shortness of breath. No PND, no orthopnea. RESPIRATORY: No cough, no hemoptysis. GI: No nausea, no vomiting. No abdominal pain. : No hematuria. No polyuria. MUSCULOSKELETAL: No joint swelling. PSYCHIATRIC: Not anxious. No depression. No suicidal thoughts. No homicidal thoughts. SKIN: Intact. No rash. PHYSICAL EXAMINATION: V/S: Blood pressure 150/90, respiratory rate 18, heart rate 78, temperature 98.8 with saturation 96%. HEENT: Normocephalic, atraumatic. Mucosa dry. Pallor positive. NECK: Supple. No JVD, no carotid bruit. No lymphadenopathy. LUNGS: Clear to auscultation. No rales or rhonchi. HEART: S1, S2 normal. No S3. No murmur, gallop or regurgitation. ABDOMEN: Soft, Left lower quadrant tenderness is present. Bowel sounds sluggish. No rigidity. No rebound or guarding. No CVA tenderness. EXTREMITIES: No cyanosis, clubbing or pedal edema. MUSCULOSKELETAL: No joint swelling. NEUROLOGIC: Awake, alert. No focal deficit. LYMPHATIC: No lymph nodes palpable. SKIN: Intact. LABS: Sodium 138, potassium 3.8, chloride 103. bicarb 28, BUN 15, creatinine 0.72 and glucose 138. WBC 19.49, hgb 11.1, hct 32.6, plt count 181. ASSESSMENT: 1. C-Diff colitis 2. Pneumonia 3. Anemia 4. Sinus bradycardia 5. Ulcerative colitis 6. DJD spine PLAN: 1. Continue Vancomycin PO Q 6 hours 2. DUO NEBS 3. Solu-Medrol 4. Demerol Q 6 hours TIME SPENT: More than 35 minutes MTDD
[2018-02-27] MEDS ORDERED: VENOFER 200 MG in SODIUM CHLORIDE 100 ML IV ONE (09:30)
[2018-02-27] MEDS: BENADRYL PO SCH (20:12)
[2018-02-27] MEDS: DESYREL PO SCH (20:13)
[2018-02-27] MEDS: SODIUM CHLORIDE 1,000 ML IV SCH (23:50)
[2018-02-28] MEDS: VANCOMYCIN 1 GM in SODIUM CHLORIDE 250 ML IV SCH ×2 (04:26→14:12)
[2018-02-28] MEDS: VANCOCIN PO SCH ×2 (05:51→12:18)
[2018-02-28] MEDS: PRILOSEC PO SCH (05:51)
[2018-02-28] MEDS: DEMEROL 25 MG/ML VIAL IVP SCH ×2 (05:51→12:17)
[2018-02-28] MEDS: CARAFATE PO SCH ×2 (05:52→12:18)
[2018-02-28 06:03] VITALS: BP 112/61; TEMP 97.5
[2018-02-28] MEDS: SOLU-MEDROL 40 MG IVP SCH (09:31)
[2018-02-28] MEDS: BENTYL PO SCH (09:31)
[2018-02-28] MEDS: MULTIVITAMIN TABLET PO SCH (09:31)
[2018-02-28] MEDS: MUCINEX PO SCH (09:31)
[2018-02-28] MEDS: NEURONTIN PO SCH (09:31)
[2018-02-28] MEDS: FERROUS SULFATE PO SCH (09:31)
[2018-02-28] MEDS: MYLICON PO SCH (09:31)
[2018-02-28] MEDS: MESALAMINE PO SCH (09:31)
[2018-02-28] MEDS: MOBIC PO SCH (09:31)
--- NOTE | 2018-02-28 15:28 | PN ---
DATE OF SERVICE: 02/27/18 SUBJECTIVE: The patient was admitted with pneumonia and complicated now with C-Diff infection. Complains of abdominal pain and diarrhea, no nausea or vomiting. REVIEW OF SYSTEMS: CONSTITUTIONAL: No fever, no chills. HEENT: Normal. ENDOCRINE: No weight gain, no weight loss. CVS: No angina symptoms. No CHF symptoms. No palpitations. No atypical chest pain for CAD. No shortness of breath. No PND, no orthopnea. RESPIRATORY: No cough, no hemoptysis. GI: No nausea, no vomiting. Abdominal pain. : No hematuria. No polyuria. MUSCULOSKELETAL: No joint swelling. PSYCHIATRIC: Not anxious. No depression. No suicidal thoughts. No homicidal thoughts. SKIN: Intact. No rash. PHYSICAL EXAMINATION: V/S: Blood pressure 137/74, respiratory rate 16, heart rate 72, temperature 98.2 with saturation 97%. HEENT: Normocephalic, atraumatic. Mucosa dry. Pallor positive. No icterus. NECK: Supple. No JVD, no carotid bruit. No lymphadenopathy. LUNGS: Clear to auscultation. No rales or rhonchi. HEART: S1, S2 normal. No S3. No murmur, gallop or regurgitation. ABDOMEN: Soft, left lower quadrant tenderness present. Bowel sounds sluggish. No rigidity. No rebound or guarding. No CVA tenderness. EXTREMITIES: No cyanosis, clubbing or pedal edema. MUSCULOSKELETAL: No joint swelling. NEUROLOGIC: Awake, alert. No focal deficit. LYMPHATIC: No lymph nodes palpable. SKIN: Intact. LABS: WBC 15.65, hgb 10.9, hct 33.6, plt count 182, sodium 140, potassium 4.2, chloride 104, bicarb 29, BUN 14, creatinine 0.72 and glucose 123. ASSESSMENT: 1. C-Diff diarrhea 2. Pneumonia community acquired 3. Anemia 4. Chronic back pain 5. Ulcerative colitis PLAN: 1. Vancomycin 250mg Q 6 hours 2. DUO NEBS 3. Daily I&O's TIME SPENT: More than 35 minutes MTDD
--- NOTE | 2018-02-28 17:47 | PCM.HOSP ---
- Initial TCU Admit [id number] 45 Minutes High Severity (93658): 02/20 - Subsequent TCU Care [id number] 25 Minutes per Day (16997): 02/26. / [id number] 35 Minutes per Day (20922): 02/21. 8/. 8/. 8/. 02/25 - TCU Discharge [id number] More Than 30 Minutes (98054): 02/28
--- NOTE | 2018-03-07 11:33 | DS ---
DATE OF SERVICE: 02/28/18 FINAL DIAGNOSIS: 1. C. DIFF DIARRHEA 2. PNEUMONIA, BIBASILAR 3. PANCOLITIS 4. NEPHROLITHIASIS 5. MODERATE TO SEVERE DJD SPINE 6. HEADACHE 7. BRADYCARDIA 8. ULCERATIVE COLITIS 9. DEPRESSION 10. ANXIETY 11. FACIAL SKIN GRAFTING 12. BACK SURGERY TIMES TWO 13. NECK SURGERY TIMES TWO 14. BILATERAL CARPAL TUNNEL SURGERY DISCHARGE INSTRUCTIONS: Followup appointment within 5 to 7 days at the [facility]. MEDICATIONS AT DISCHARGE: Dicyclomine Neurontin Hydroxyzine Imodium Mobic Trazodone Benadryl Iron Mesalamine Simethicon Prilosec NEW PRESCRIPTIONS: Vancomycin 250 mg p.o. q.6hr for 6 days Prednisone 10 mg twice a day for 5 days Prilosec 10 mg daily for 30 days DIET INSTRUCTIONS: Regular; eat a lot of yogurt ACTIVITY: As much as tolerated. DISEASE SPECIFIC EDUCATION: C. diff colitis, worsening infection has been discussed, patient verbalized understanding. HOSPITAL COURSE: This 42-year-old male was initially admitted with bilateral pneumonia, community acquired was needing some mcc antibiotic, was admitted to transitional care unit. He started having abdominal pain, cramping, worsening abdominal pain. C. diff for diarrhea was positive. He was started on Vancomycin. White count went up to 19,000. CT abdomen showed pancolitis. The patient was put on contact isolation, Vancomycin continued, was then stopped. Gradually started feeling better. White count was getting better. Diarrhea has improved. As the patient is up and about walking, the patient is being discharged home today. TIME SPENT: MORE THAN 65 MINUTES MTDD
== END 2018-02-28 15:20 | disposition home or self-care (01) | DRG 194 ==
LOC: MEDSURG B 16:40
PROVIDERS: ADMIT Emergency Medicine; ATTEND Emergency Medicine
DX: J18.9 Pneumonia, unspecified organism (principal); K51.00 Ulcerative (chronic) pancolitis without complications; K51.90 Ulcerative colitis, unspecified, without complications; N20.0 Calculus of kidney; D64.9 Anemia, unspecified; F41.8 Other specified anxiety disorders; R51 Headache; R00.1 Bradycardia, unspecified; R06.02 Shortness of breath; M47.9 Spondylosis, unspecified; M19.90 Unspecified osteoarthritis, unspecified site; M54.9 Dorsalgia, unspecified
CPT/HCPCS: 36415; 80053; 80202; 85007; 85025; 87493; 94640; 97802

== ENCOUNTER 2018-07-30 12:05 | Outpatient (CLI) | END 2018-07-30 12:06 | disposition home or self-care (01) | LOC: RHC-LAB 12:05 → FCC-LAB 12:06 | PROVIDERS: ATTEND Nurse Practitioner Family | DX: Z79.899 Other long term (current) drug therapy (principal) | CPT/HCPCS: 80306 ==

== ENCOUNTER 2018-08-02 10:34 | Outpatient (CLI) | END 2018-08-02 10:35 | disposition home or self-care (01) | LOC: CAR 10:34 | PROVIDERS: ATTEND Psychiatry & Neurology Sleep Medicine | DX: G47.33 Obstructive sleep apnea (adult) (pediatric) (principal) | CPT/HCPCS: 95810 ==

== ENCOUNTER 2018-09-27 08:55 | Outpatient (CLI) ==
--- NOTE | 2018-09-27 09:29 | DI ---
EXAM: Three views of the left ankle. History: Left ankle pain. Findings: No acute fracture or dislocation. Mild soft tissue swelling at the ankle. Small enthesio phyte at the insertion of the Achilles tendon. Well corticated ossific density seen on the lateral v iew anterior to the distal tibia is probably related to old trauma. Joint spaces are relatively pres erved. Impression: No acute osseous abnormality. Other findings as detailed above. If pain persists, cons ider further evaluation with CT or MRI.
== END 2018-09-27 08:56 | disposition home or self-care (01) ==
LOC: RAD 08:55
PROVIDERS: ATTEND Nurse Practitioner Family
DX: M25.572 Pain in left ankle and joints of left foot (principal)

== ENCOUNTER 2018-11-02 08:01 | Outpatient (CLI) ==
--- NOTE | 2018-11-02 14:13 | MRI ---
EXAM: MRI of the left ankle/hind-foot without contrast COMPARISON: Left ankle radiographs 09/27/2018. HISTORY: Left ankle pain following a twisting injury 1 month ago. TECHNIQUE: Multiplanar noncontrast MR images of the left ankle/hind-foot were acquired using a 1.5 T esla magnet. FINDINGS: There is tibiotalar joint osteoarthrosis with thinning of the cartilage most severe along the anterior portion of the tibial plafond with degenerative spurring subchondral edema/cystic change at that level. There is a 0.7 x 0.5 cm osteochondral body anteriorly within the tibiotalar joint as noted on previous radiographs with moderate sized joint effusion. Suspected punctate 1 mm loose bod y within the tibiotalar joint. Mild to moderate degenerative changes of the posterior facet of the s ubtalar joint with subchondral edema that level and moderate sized joint effusion. Prominent dorsal osteophytes at the talonavicular joint. No evidence of an acute fracture or osteomyelitis. There is mild Achilles tendinosis and peritendinitis with a retrocalcaneal spur without evidence of a n Achilles tendon tear. Low-level inflammation of the proximal portion the plantar fascia without fa scial rupture. The anterior tibial, extensor hallicus longus and extensor digitorum tendons are intact. Posterior t ibial tendinosis and tenosynovitis with a partial-thickness tear of the posterior tibial tendon from the medial malleolus distally overlying the 1.5 cm without a full-thickness tear or retraction. The flexor digitorum flexor hallicus longus tendons are intact. There is peroneus longus/brevis tendinos is with marked tenosynovitis with a partial/split tear of the peroneus brevis from the lateral malleo shmuel through the level of the peroneal tubercle. Minimal linear she substance fissuring/tearing of th e peroneus longus at that level without a full-thickness tear. There is subcutaneous edema most exte nsive laterally. Sprain of the anterior tibiofibular ligament without abnormal widening of the syndesmosis. Chronic d eformity of the lateral malleolus with a well corticated ossifications anteriorly and inferiorly in t he region of the anterior talofibular ligament related to an old avulsion fracture. Chronic-appearin g tear with scarring of the anterior talofibular ligament. Sprain/partial tears scarring of the calc aneofibular, posterior talofibular and deltoid ligaments. Well corticated ossifications adjacent to the tip of the medial malleolus related to sequela of old trauma. Small accessory navicular. IMPRESSION: 1. Osteoarthrosis involving the ankle/hind-foot and midfoot as described. Tibiotalar and subtalar j oint effusions with loose bodies at the tibiotalar joint. 2. Achilles tendinosis and peritendinitis without a tendon tear. Mild inflammation of the plantar f ascia without fascial rupture. 3. Old avulsion fracture of the medial and lateral malleoli. 4. Chronic-appearing high-grade tear of the anterior talofibular ligament with scarring. Sprain/par tial tears scarring of the calcaneofibular, posterior talofibular and deltoid ligaments. Sprain of t he anterior tibiofibular ligament without abnormal widening syndesmosis. 5. Peroneus longus/brevis tendinosis and tenosynovitis with partial/split tear of the peroneus brevi s. Minimal linear intrasubstance fissuring/tearing of the peroneus longus without a full-thickness t ear. 6. Tendinosis/partial tear and tenosynovitis involving the posterior tibial tendon without a full-th ickness tear or tendon retraction. Small accessory navicular.
== END 2018-11-02 08:02 | disposition home or self-care (01) ==
LOC: RAD 08:01
PROVIDERS: ATTEND Nurse Practitioner Family
DX: M25.572 Pain in left ankle and joints of left foot (principal)

== ENCOUNTER 2019-01-15 13:19 | Emergency (ER) ==
[2019-01-15 13:26] VITALS: TEMP 97.4; BMI 22.6
--- NOTE | 2019-01-15 14:29 | ED.PDOC ---
General Stated Complaint: Heat Exhaustion. Patient brought in by ambulance and indicated he had been working outside on his truck and became too hot. He was still sweating upon EMS arrival. He complained of weakness, muscle cramps and nausea/vomiting and indicated he had only consumed 2 bottles of water while working out doors. Time Seen by Physician: 13:35 Mode of Arrival: Ambulance Information Source: Patient, EMT Exam Limitations: Clinical condition Nursing and Triage Documentation Reviewed and Agree: Yes System Inflammatory Response Syndrome: Not Applicable <CLARISSE RODAS - Last Filed: 01/15/19 19:05> Does patient meet sepsis criteria?: Yes If yes, has appropriate treatment been initiated?: No <LUISA HORVATH - Last Filed: 01/15/19 20:24> ED Provider: Dr. LUISA HORVATH Chief Complaint: Non-specific Complaint Primary Care Provider: AGUSTINA CORDERO Sepsis Protocol: For patient's 13 years and over: Temp is 96.8 and below OR 101 and greater Pulse >90 BPM Resp >20/minute Acutely Altered Mental Status Are patient's symptoms suggestive of a new infection, such as: -Pneumonia -Skin, Soft Tissue -Endocarditis -UTI -Bone, Joint Infection -Implantable Device -Acute Abdominal Infection -Wound Infection -Meningitis -Blood Stream Catheter Infection -Unknown Review of Systems - Review Of Systems Constitutional: Reports: Weakness Respiratory: Reports: No symptoms Cardiac: Reports: Lightheadedness GI: Reports: Nausea, Vomiting Musculoskeletal: Reports: Muscle pain Skin: Reports: No symptoms Neurological: Reports: Anxiety Endocrine: Reports: No symptoms All Other Systems: Reviewed and Negative <LUISA HORVATH - Last Filed: 01/15/19 20:24> Past Medical History - Past Medical History Previously Healthy: Yes Endocrine: Reports: None Cardiovascular: Reports: None Respiratory: Reports: None Hematological: Reports: None Gastrointestinal: Reports: Other (Colitis ) Genitourinary: Reports: None Neuro/Psych: Reports: None Musculoskeletal: Reports: Back Pain Cancer: Reports: None - Surgical History General Surgical History: Reports: Back Surgery (x2), Other (NECK SURGERY X 2, R HAND SURGERY X 2) - Family History Family History: Reports: None - Social History Smoking Status: Never smoker Hx Substance Use: No Alcohol Screening: None <CLARISSE RODAS - Last Filed: 01/15/19 19:05> Physical Exam - Physical Exam Appearance: Ill-appearing Ill-appearing: Moderate Neurological: Alert, Oriented Psychiatric: Anxious <ALEXANDRULUISA - Last Filed: 01/15/19 20:24> Interpretation - Radiology Interpretation Radiology Interpretation By: Radiologist Radiology Results: Negative Exam Interpreted: CT Scan <LUISA HORVATH - Last Filed: 01/15/19 20:24> Re-Evaluation - Re-Evaluation Time of Re-Evaluation: 18:00 Status: Improved Vital Signs Stable: Yes Pain Level: 0 Appearance: NAD Lungs: Clear Skin: Warm and Dry Neuro: Alert and Oriented X3 CV: RRR Additional Comments: Tolerating oral fluids wel. <CLARISSE RODAS - Last Filed: 01/15/19 19:05> Physician Notification - Case Discussed Physician Notified: Dr Horvath Time of Notification: 17:00 (accepted coverage) <CLARISSE RODAS - Last Filed: 01/15/19 19:05> Critical Care Note - Critical Care Note Total Time (mins): 30 <LUISA HORVATH - Last Filed: 01/15/19 20:24> Course - Course Hematology/Chemistry: 01/15/19 14:50 01/15/19 14:50 <CLARISSE RODAS - Last Filed: 01/15/19 19:05> - Course Hematology/Chemistry: 01/15/19 14:50 01/15/19 14:50 <LUISA HORVATH - Last Filed: 01/15/19 20:24> - Course Orders, Labs, Meds: Lab Review 01/15/19 01/15/19 01/15/19 14:50 14:50 14:50 WBC 5.45 RBC 3.57 L Hgb 10.9 L Hct 32.7 L MCV 91.6 MCH 30.5 MCHC 33.3 RDW Coeff of Manan 12.7 Plt Count 165 Immature Gran % (Auto) 0.4 Neut % (Auto) 71.6 Lymph % (Auto) 18.3 [place] % (Auto) 8.6 Eos % (Auto) 0.9 Baso % (Auto) 0.2 Immature Gran # (Auto) 0.0 Neut # (Auto) 3.9 Lymph # (Auto) 1.0 [place] # (Auto) 0.5 Eos # (Auto) 0.1 Baso # (Auto) 0.0 Puncture Site O2 Saturation ABG pH ABG pCO2 ABG pO2 ABG HCO3 ABG Total CO2 ABG Base Excess Johnny Test FiO2 % Sodium 142.1 Potassium 3.52 Chloride 106.4 Carbon Dioxide 28.8 Anion Gap 10.42 BUN 12.5 Creatinine 0.80 Estimated GFR (MDRD) 105.00 BUN/Creatinine Ratio 15.62 Glucose 98.8 Lactic Acid 1.03 Calcium 8.77 Total Bilirubin 0.46 AST 27.9 ALT 15.1 Alkaline Phosphatase 42.3 Total Creatine Kinase 133.5 CK-MB (CK-2) 1.620 CK-MB (CK-2) % 1.2100 Troponin I < 0.012 Total Protein 6.23 L Albumin 3.92 Globulin 2.31 Albumin/Globulin Ratio 1.69 Urine Color Urine Clarity Urine pH Ur Specific [place] Urine Protein Urine Glucose (UA) Urine Ketones Urine Blood Urine Nitrite Urine Bilirubin Urine Urobilinogen Ur Leukocyte Esterase Urine Microscopic RBC Ur Squamous Epith Cells Urine Mucus Urine Opiates Screen Ur Oxycodone Screen Urine Methadone Screen Ur Propoxyphene Screen Ur Barbiturates Screen U Tricyclic Antidepress Ur Phencyclidine Scrn Ur Amphetamine Screen U Methamphetamines Scrn U Benzodiazepines Scrn Urine Cocaine Screen U Cannabinoids Screen 01/15/19 01/15/19 01/15/19 15:21 15:21 16:25 WBC RBC Hgb Hct MCV MCH MCHC RDW Coeff of Manan Plt Count Immature Gran % (Auto) Neut % (Auto) Lymph % (Auto) [place] % (Auto) Eos % (Auto) Baso % (Auto) Immature Gran # (Auto) Neut # (Auto) Lymph # (Auto) [place] # (Auto) Eos # (Auto) Baso # (Auto) Puncture Site R radial O2 Saturation 95.0 ABG pH 7.359 ABG pCO2 45.2 H ABG pO2 82.0 L ABG HCO3 25.4 ABG Total CO2 27 ABG Base Excess 0 Johnny Test + FiO2 % 21.0 Sodium Potassium Chloride Carbon Dioxide Anion Gap BUN Creatinine Estimated GFR (MDRD) BUN/Creatinine Ratio Glucose Lactic Acid Calcium Total Bilirubin AST ALT Alkaline Phosphatase Total Creatine Kinase CK-MB (CK-2) CK-MB (CK-2) % Troponin I Total Protein Albumin Globulin Albumin/Globulin Ratio Urine Color Yellow Urine Clarity Clear Urine pH 6.5 Ur Specific [place] 1.025 Urine Protein 1+ Urine Glucose (UA) Negative Urine Ketones Negative Urine Blood Trace-intact Urine Nitrite Negative Urine Bilirubin Negative Urine Urobilinogen 0.2 Ur Leukocyte Esterase Negative Urine Microscopic RBC 0-2 Ur Squamous Epith Cells Not present Urine Mucus 4+ Urine Opiates Screen Negative Ur Oxycodone Screen Negative Urine Methadone Screen Negative Ur Propoxyphene Screen Negative Ur Barbiturates Screen Negative U Tricyclic Antidepress Negative Ur Phencyclidine Scrn Negative Ur Amphetamine Screen Negative U Methamphetamines Scrn Negative U Benzodiazepines Scrn Positive Urine Cocaine Screen Negative U Cannabinoids Screen Positive Orders Category Date Time Status ABG DRAW REQUEST Stat CARDIO 01/15/19 16:25 Completed EKG-(ED ONLY) Stat CARDIO 01/15/19 16:24 Completed ABG Stat LAB 01/15/19 16:25 Completed CBC W/ AUTO DIFF Stat LAB 01/15/19 14:50 Completed CMP [COMPREHENSIVE METABOLIC PANEL] Stat LAB 01/15/19 14:50 Completed CPK [CREATINE KINASE] Stat LAB 01/15/19 14:50 Completed LACTIC ACID Stat LAB 01/15/19 14:50 Completed TROPONIN I Stat LAB 01/15/19 14:50 Completed UA [URINALYSIS C & S IF INDICATED] Stat LAB 01/15/19 15:21 Completed URINE DRUG SCREEN (RAPID FOR ED) [DRUG SCREEN, URINE, LAB 01/15/19 15:21 Completed RAPID] Stat Ondansetron HCl/Pf [Zofran 4 mg/2 ml] MEDS 01/15/19 18:30 Discontinued 4 mg IVP ONCE STA Ringers Lactated Solution [Lactated Ringers] 1,000 ml MEDS 01/15/19 14:34 Discontinued IV BOLUS Sodium Chloride 0.9% [Sodium Chloride] 1,000 ml MEDS 01/15/19 16:25 Discontinued IV BOLUS Sodium Chloride 0.9% [Sodium Chloride] 1,000 ml MEDS 01/15/19 18:[address] HEAD W/O CONTRAST Stat RADS 01/15/19 18:32 Completed Medications Discontinued Medications Generic Name Dose Route Start Last Admin Trade Name Freq PRN Reason Stop Dose Admin Lactated Ringer's 1,000 mls @ 500 mls/hr 01/15/19 14:34 01/15/19 13:30 Lactated Ringers IV 01/15/19 16:33 500 mls/hr BOLUS STA Administration Sodium Chloride 1,000 mls @ 1,000 mls/hr 01/15/19 16:25 01/15/19 16:37 Sodium Chloride IV 01/15/19 17:24 1,000 mls/hr BOLUS STA Administration Sodium Chloride 1,000 mls @ 1,000 mls/hr 01/15/19 18:30 01/15/19 18:37 Sodium Chloride IV 01/15/19 19:29 1,000 mls/hr BOLUS STA Administration Ondansetron HCl 4 mg 01/15/19 18:30 01/15/19 18:37 Zofran 4 Mg/2 Ml IVP 01/15/19 18:31 4 mg ONCE STA Administration Vital Signs: Temp Pulse Resp BP Pulse Ox 01/15/19 19:54 67 122/85 01/15/19 13:22 97.4 F L 51 L 20 119/64 91 L Departure <CLARISSE RODAS - Last Filed: 01/15/19 19:05> - Departure Time of Disposition: 19:56 Pt referred to PMD for follow-up: Yes IPMP verified?: No Disposition Discussed With: Patient, Family <LUISA HORVATH - Last Filed: 01/15/19 20:24> - Departure Disposition: HOME SELF-CARE Discharge Problem: Dehydration Heat exhaustion Qualifiers: Encounter type: initial encounter Qualified Code(s): T67.5XXA - Heat exhaustion , unspecified, initial encounter Instructions: Heat Exhaustion (ED) Condition: Good Additional Instructions: Push fluids Follow up with PCP in 3 days Allergies/Adverse Reactions: Allergies No Known Allergies Allergy (Verified 01/15/19 13:26) Home Medications: Ambulatory Orders Diazepam 10 mg PO BID 01/15/19 Dicyclomine HCl 10 mg PO TID 01/15/19 Mesalamine [Apriso] 4 cap PO DAILY 01/15/19 Tizanidine HCl 4 mg PO DAILY 01/15/19
[2019-01-15] MEDS ORDERED: LACTATED RINGERS 1,000 ML IV STA (14:34)
[2019-01-15] MEDS ORDERED: SODIUM CHLORIDE 1,000 ML IV STA ×2 (16:25→18:30)
[2019-01-15] MEDS ORDERED: ZOFRAN 4 MG/2 ML IVP STA (18:30)
--- NOTE | 2019-01-15 19:20 | CT ---
EXAM: CT of the head without contrast. HISTORY: He exhaustion. Dizziness. COMPARISON: 08/15/2017. TECHNIQUE: Contiguous axial images at 5 mm intervals were obtained from the base of the skull to the vertex of the calvarium. No contrast was given. FINDINGS: Extra-axial spaces: The CSF-containing spaces are normal in size and position.There are no extraaxia l fluid collections. Hemorrhage: None Cerebral Parenchyma: There are no areas of abnormal density. [place]-white differentiation is normal. Cerebellum: Normal. Masses/Mass effect: None. There is no midline shift. Vasculature: Normal. Osseus Structures: Normal. Soft tissues: Normal. IMPRESSION: No acute intracranial abnormality.
[2019-01-15 19:54] VITALS: BP 122/85
== END 2019-01-15 20:19 | disposition home or self-care (01) ==
LOC: ED 13:19
DX: T67.5XXA Heat exhaustion, unspecified, initial encounter (principal); E86.0 Dehydration; R25.2 Cramp and spasm; R53.1 Weakness; R11.2 Nausea with vomiting, unspecified; R42 Dizziness and giddiness; R61 Generalized hyperhidrosis; M79.10 Myalgia, unspecified site
CPT/HCPCS: 36415; 80053; 80306; 81001; 82550; 82553; 82803; 83605; 84484; 85025; 93005; 93010; 96361; 96374; 99284

== ENCOUNTER 2021-11-07 12:54 | Inpatient (IN) ==
[2021-11-07] MEDS ORDERED: LIDOCAINE HCL 1% SDV IM STA (13:14)
[2021-11-07] MEDS ORDERED: ROCEPHIN 1 GM VIAL IV STA (13:14)
[2021-11-07 13:34] LABS: BASOPHILS % (AUTO) 0.1 % (0.0-3.0); EOSINOPHILS % (AUTO) 0.2 % (0.0-7.0); HEMATOCRIT 34.4 % (42.0-52.0); HEMOGLOBIN 11.5 g/dl (14.0-18.0); IMMATURE GRANULOCYTE # (AUTO) 0.1 (0.0-1.0); IMMATURE GRANULOCYTE % (AUTO) 0.5 % (0.0-5.0); LYMPHOCYTES # (AUTO) 1.5 K/uL (0.60-3.4); LYMPHOCYTES % (AUTO) 13.9 (10.0-50.0); MEAN CORPUSCULAR HEMOGLOBIN 29.3 pg (27.0-31.0); MEAN CORPUSCULAR HGB CONC 33.4 (31.8-35.4); MEAN CORPUSCULAR VOLUME 87.8 fl (80.0-94.0); MONOCYTES # (AUTO) 0.8 K/uL (0.4-2.0); MONOCYTES % (AUTO) 7.2 (0-10); NEUTROPHILS # (AUTO) 8.2 K/ul (2.0-6.9); NEUTROPHILS % (AUTO) 78.1 % (42.2-75.2); PLATELET COUNT 192 10^3/uL (140-440); RDW COEFFICIENT OF VARIATION 12.8 % (11.6-14.8); RED BLOOD COUNT 3.92 10^6/ul (4.70-6.10)
[2021-11-07] MEDS ORDERED: ROCEPHIN 1 GM/50 ML D5W 1 GM/50 ML BAG IV ONE (13:35)
[2021-11-07 13:37] LABS: MOLECULAR FLU A NEGATIVE BY NAAT (NEGATIVE); MOLECULAR FLU B NEGATIVE BY NAAT (NEGATIVE)
[2021-11-07 13:42] LABS: ABG O2 HGB 95.5 % (95-100); BEecf 4.6 (-2.0-3.0); COHb 2.2 (0.5-1.5); HCO3 25.3 (21-28); MetHb 1.1 (0-1.5); sO2 96.7 % (94-98); tHb 11.7 g/dl (11.7-17.4)
--- NOTE | 2021-11-07 13:43 | CT ---
EXAM: Noncontrast chest CT HISTORY: Cough, fever COMPARISON: 04/22/2019 chest x-ray, 02/16/[address] TECHNIQUE: Axial noncontrast of the chest with sagittal and coronal reformats. FINDINGS: Right lower lobe multifocal patchy consolidation is identified. Mild right middle lobe consolidation is seen. There is mild patchy nodularity of the right upper lobe measuring 0.6 cm on axial image 13 . A few small calcified granulomas present. No pneumothorax or pleural effusion is seen. Heart size is normal. No mediastinal lymphadenopathy is identified. Cervical ACDF is noted. IMPRESSION: Multifocal right lung pneumonia, most prominent in the right lower lobe. Recommend follow-up CT in 3 months to document resolution given the nodular appearance in the right upper lobe. All CT scans are performed using dose optimization techniques as appropriate to the performed exam an d include at least one of the following: Automated exposure control, adjustment of the mA and/or kV according t o size, and the use of iterative reconstruction technique.
[2021-11-07 13:44] LABS: ABG PH 7.65 (7.35-7.45)
[2021-11-07 13:49] LABS: ALANINE AMINOTRANSFERASE 37.3 U/L (0-50); ALBUMIN 4.31 g/dL (3.5-5.0); ALKALINE PHOSPHATASE 70.2 U/L (38-126); ASPARTATE AMINO TRANSFERASE 36.4 U/L (17-59); BILIRUBIN,TOTAL 0.76 mg/dL (0.2-1.3); CALCIUM 8.94 mg/dL (8.4-10.2); CARBON DIOXIDE 28.3 mmol/L (22-30.0); CHLORIDE 101.1 mmol/L (98-107); CREATININE 0.79 mg/dL (0.60-1.10); GLUCOSE 112.8 mg/dL (74-106); POTASSIUM 3.68 mmol/L (3.5-5.1); SODIUM 136.6 mmol/L (134.5-145); TOTAL PROTEIN 7.66 g/dL (6.3-8.2)
--- NOTE | 2021-11-07 13:49 | CT ---
EXAM: CT of the abdomen and pelvis without contrast. TECHNIQUE: CT of the abdomen and pelvis was performed without the use of contrast. Multiplanar refo rmats were performed. HISTORY: Lower back pain and fever. COMPARISON: CT abdomen pelvis 03/27/2019. FINDINGS: Evaluation of solid organs and blood vessels is suboptimal without the benefit of contrast. Imaged lower thorax: Multifocal foci of consolidation and ground-glass in the right lower lobe as wel l as small airway thickening and mucus plugging. Scattered calcified granulomas. Liver: Unremarkable. Gallbladder/Bile Ducts: No biliary dilation. Gallbladder is unremarkable. Spleen: Unremarkable. Pancreas: Unremarkable. Adrenals: Unremarkable. Kidneys/Ureters: Bilateral nephrocalcinosis and renal stones measuring up to ago 3 mm in the right lo wer pole and 71. No hydronephrosis or stones in the ureters. Bowel/mesentery/peritoneum: No bowel obstruction. Normal appendix. No free air of ascites. Retroperitoneum/vessels: No aortic aneurysm. No adenopathy. Pelvis: Mild thickening of the bladder wall. Mild enlargement prostate gland. Multiple pelvic phleb oliths noted. Bones/body wall: Multilevel degenerative changes of the lumbar spine, most pronounced at L4-5. IMPRESSION: 1. Opacities in the right lower lobe concerning for pneumonia or aspiration pneumonitis. Recommend f ollow-up CT in 3 months to exclude underlying neoplasm. 2. Mild bladder wall thickening suggesting cystitis 3. Bilateral medullary calcinosis and nephrolithiasis. No hydronephrosis or stone in the ureters. 4. Multilevel degenerative changes of the lumbar spine. All CT scans are performed using dose optimization techniques as appropriate to the performed exam an d include at least one of the following: Automated exposure control, adjustment of the mA and/or kV according t o size, and the use of iterative reconstruction technique.
--- NOTE | 2021-11-07 14:04 | ED.PDOC ---
General ED Provider: Dr. CLARISSE URBINA Chief Complaint: Respiratory Complaint Stated Complaint: he has cough and fever Time Seen by Provider: 11/07/21 14:01 Mode of Arrival: Walk-In Information Source: Patient Exam Limitations: No limitations Primary Care Provider: ANTONIO CASAS Nursing and Triage Documentation Reviewed and Agree: Yes Does patient meet sepsis criteria?: No System Inflammatory Response Syndrome: Not Applicable Sepsis Protocol: For patient's 13 years and over: Temp is 96.8 and below OR 101 and greater Pulse >90 BPM Resp >20/minute Acutely Altered Mental Status Are patient's symptoms suggestive of a new infection, such as: -Pneumonia -Skin, Soft Tissue -Endocarditis -UTI -Bone, Joint Infection -Implantable Device -Acute Abdominal Infection -Wound Infection -Meningitis -Blood Stream Catheter Infection -Unknown Respiratory Complaint Exam Respiratory Complaint/Exam Onset/Duration: cough for a few days Symptoms Are: Still present Timing: Intermittent Initial Severity: Mild Current Severity: Moderate Location: Unknown Character: Reports Productive cough Aggravating: Reports URI Alleviating: Reports None Associated Signs and Symptoms: Reports Dyspnea, Fever, Chills and URI Related History: Reports Similar episode History of Healthcare-Acquired Pneumonia: No Related Surgical History: Reports None Pulmonary Embolism Risk Factors: None Cardiac Risk Factors: Reports None Pseudomonas Risk Factors: Reports None Tuberculosis Risk Factors: Reports None Status Asthmaticus Risk Factors: Reports None Home Oxygen Use: No Recent Stress Test: Yes Recent Echo/LV Function: No Current Antibiotic Use: No Current Asthma Medication Use: No Respiratory Distress: None Inadequate Respiratory Effort: No Dysphagia Present: No Stridor Present: No JVD Present: No Accessory Muscle Use: No Retractions: Not Present Diminished Breath Sounds: No Sinus Tenderness: None Grunting Respirations: No Kussmaul Respirations: No Differential Diagnoses: Pneumonia Non-Traumatic Chest Pain Syncope: EKG Performed Review of Systems Review Of Systems Constitutional: Reports Chills, Fever, Malaise and Weakness Eyes: Reports No symptoms Ears, Nose, Mouth, Throat: Reports No symptoms Respiratory: Reports Cough Cardiac: Reports No symptoms GI: Reports No symptoms : Reports No symptoms Musculoskeletal: Reports Back pain Skin: Reports No symptoms Neurological: Reports No symptoms Endocrine: Reports No symptoms Hematologic/Lymphatic: Reports No symptoms All Other Systems: Reviewed and Negative [facility] Medical History Back pain Carpal tunnel syndrome of right wrist Conjunctivitis Depression Neck pain Ulcerative colitis Social History Smoking and tobacco status: Former smoker Second hand smoke exposure: Yes Alcohol intake: never Substance use type: does not use Francoise/sabianist: Jehovah'S Witness Special francoise needs: No Agree to transfusion: Yes Adopted: No Caregiver/support person: Yes Household members: spouse Housing: house Lives independently: Yes Highest education level completed: high school graduate Financial difficulty paying for basics: somewhat hard service: No alf: No Current occupational status: disabled Pets and animals: Yes Leisure activites: fishing History of recent travel: No Sexually active: Yes Do you think of yourself as: straight/heterosexual Current gender identity: male Seatbelt use: always Helmet use: Yes Drives intoxicated or rides with intoxicated tank truck driver: No Water heater temperature set < 120 degrees: Yes Working smoke detector in home: Yes Fire extinguisher in home: Yes Carbon monoxide detector in home: Yes Firearms in home: No Surgical History H/O colonoscopy History of musculoskeletal system surgery Physical Exam Physical Exam Appearance: Reports Well-appearing Ill-appearing: Mild Pain Distress: None Eyes: Reports FRANSISCA, EOMI and Conjunctiva clear ENT: Reports Ears normal, Nose normal and Oropharynx normal Neck: Supple Respiratory: Reports Airway patent, Breath sounds clear and Breath sounds equal Cardiovascular: Reports RRR, Pulses normal and No rub GI/: Reports Soft, Nontender and No masses Musculoskeletal: Reports Normal strength and ROM intact Skin: Reports Warm, Dry and Normal color Neurological: Reports Sensation intact, Motor intact, Reflexes intact, Cranial nerves intact, Alert and Oriented Psychiatric: Reports Affect appropriate and Mood appropriate Interpretation Radiology Interpretation Radiology Interpretation By: Radiologist Radiology Results: Positive Exam Interpreted: CT Scan EKG Interpretation Time of EKG #1: 14:51 Rate: Normal Rhythm: Sinus Ectopy: None ST Segment: Normal Interpretation: nsr Critical Care Note Critical Care Note Total Critical Care Time (mins): 0 Course Course Hematology/Chemistry: 11/07/21 13:26 11/07/21 13:26 Orders, Labs, Meds: Lab Review 11/07/21 11/07/21 11/07/21 13:10 13:10 13:20 WBC RBC Hgb Hct MCV MCH MCHC RDW Coeff of Manan Plt Count Immature Gran % (Auto) Neut % (Auto) Lymph % (Auto) [place] % (Auto) Eos % (Auto) Baso % (Auto) Neut # (Auto) Lymph # (Auto) [place] # (Auto) Eos # (Auto) Baso # (Auto) Immature Gran # (Auto) Puncture Site Lbrach Base Excess 4.6 H O2 Saturation 96.7 ABG pH 7.65 H* ABG pCO2 23.0 L ABG pO2 68.0 L ABG HCO3 25.3 ABG Total CO2 26.0 H Hemoglobin 1.1 Oxyhemoglobin 95.5 Carboxyhemoglobin 2.2 H Total Hemoglobin 11.7 FiO2 % 21.0 Sodium Potassium Chloride Carbon Dioxide Anion Gap BUN Creatinine Estimated GFR (MDRD) BUN/Creatinine Ratio Glucose Lactic Acid Calcium Total Bilirubin AST ALT Alkaline Phosphatase Total Protein Albumin Globulin Albumin/Globulin Ratio Influ A Molecular Assay Negative by naat Influ B Molecular Assay Negative by naat SARS-CoV-2 Ag (Rapid) Negative 11/07/21 11/07/21 11/07/21 13:26 13:26 13:26 WBC 10.50 H RBC 3.92 L Hgb 11.5 L Hct 34.4 L MCV 87.8 MCH 29.3 MCHC 33.4 RDW Coeff of Manan 12.8 Plt Count 192 Immature Gran % (Auto) 0.5 Neut % (Auto) 78.1 H Lymph % (Auto) 13.9 [place] % (Auto) 7.2 Eos % (Auto) 0.2 Baso % (Auto) 0.1 Neut # (Auto) 8.2 H Lymph # (Auto) 1.5 [place] # (Auto) 0.8 Eos # (Auto) 0.0 Baso # (Auto) 0.0 Immature Gran # (Auto) 0.1 Puncture Site Base Excess O2 Saturation ABG pH ABG pCO2 ABG pO2 ABG HCO3 ABG Total CO2 Hemoglobin Oxyhemoglobin Carboxyhemoglobin Total Hemoglobin FiO2 % Sodium 136.6 Potassium 3.68 Chloride 101.1 Carbon Dioxide 28.3 Anion Gap 10.88 BUN 15.0 Creatinine 0.79 Estimated GFR (MDRD) 105.00 BUN/Creatinine Ratio 18.98 Glucose 112.8 H Lactic Acid 1.19 Calcium 8.94 Total Bilirubin 0.76 AST 36.4 ALT 37.3 Alkaline Phosphatase 70.2 Total Protein 7.66 Albumin 4.31 Globulin 3.35 Albumin/Globulin Ratio 1.28 Influ A Molecular Assay Influ B Molecular Assay SARS-CoV-2 Ag (Rapid) Orders Category Date Time Status ABG DRAW REQUEST Stat CARDIO 11/07/21 13:10 Completed EKG-(ED ONLY) Stat CARDIO 11/07/21 13:09 Completed ED CREATIVE ARTS THERAPIST APPLIED .ONCE EMERGENCY 11/07/21 13:09 Active ED IV/MEDIPORT/POWERPORT .ONCE EMERGENCY 11/07/21 13:09 Active ABG COOX Stat LAB 11/07/21 13:20 Completed BLOOD CULTURE (ED ONLY) Stat LAB 11/07/21 13:26 Received CBC W/ AUTO DIFF Stat LAB 11/07/21 13:26 Completed COMPREHENSIVE METABOLIC PANEL Stat LAB 11/07/21 13:26 Completed COVID-19 ANTIGEN TEST Stat LAB 11/07/21 13:10 Completed FLU A/B MOLECULAR Stat LAB 11/07/21 13:10 Completed LACTIC ACID Stat LAB 11/07/21 13:26 Completed URINALYSIS C & S IF INDICATED Stat LAB 11/07/21 13:10 Uncollected 0.9 % Sodium Chloride [Saline Flush] MEDS 11/07/21 13:09 Active 1 syr IVF PRN PRN Ceftriaxone/D5w 1 gm Premix [Rocephin 1 gm/50 ml D5w] MEDS 11/07/21 13:35 Discontinued 1 gm in [address] ABDOMEN/PELVIS WO CONTRAST Stat RADS 11/07/21 13:[address] CHEST W/O CONTRAST Stat RADS 11/07/21 13:09 Completed Medications Generic Name Dose Route Start Last Admin Trade Name Freq PRN Reason Stop Dose Admin Sodium Chloride 1 syr 11/07/21 13:09 0.9% Sodium Chloride 10 Ml Disp.Syrin IVF PRN PRN To flush IV Discontinued Medications Generic Name Dose Route Start Last Admin Trade Name Freq PRN Reason Stop Dose Admin CEFTRIAXONE/D5W 1 GM PREMIX 1 gm in 50 mls @ 75 mls/hr 11/07/21 13:35 11/07/21 13:45 Rocephin 1 Gm/50 Ml D5w IV 11/07/21 14:14 75 mls/hr ONCE ONE Administration Vital Signs: Temp Pulse Resp BP Pulse Ox 11/07/21 12:56 100.0 F H 100 H 20 123/75 91 L Discharge Plan Discharge Patient Disposition: ADMITTED INPATIENT Discharge Problem: Pneumonia Prescriptions: No Action gabapentin 300 mg capsule 300 mg PO TID Qty: 90 0RF hydroxyzine HCl 10 mg tablet See Rx Instructions .ROUTE .COMPLEX Qty: 30 0RF Dose Instruction: TAKE ONE TABLET THREE TIMES DAILY NEEDED FOR ANXIETY Rx Instructions: TAKE ONE TABLET THREE TIMES DAILY NEEDED FOR ANXIETY duloxetine 60 mg capsule,delayed release(DR/EC) 60 mg PO BID 30 Days Qty: 60 0RF tizanidine 4 mg tablet 4 mg PO DAILY PRN (Reason: muscle spasticity) Qty: 30 0RF trazodone 50 mg tablet See Rx Instructions .ROUTE .COMPLEX Qty: 30 0RF Dose Instruction: TAKE ONE TABLET AT BEDTIME Rx Instructions: TAKE ONE TABLET AT BEDTIME Humira 20 MG/0.4 ML syringe kit 40 mg SQ DIRECTED 0RF diphenhydramine HCl 50 mg Capsule 50 mg PO BEDTIME 0RF ergocalciferol (vitamin D2) 1,250 mcg (50,000 unit) capsule 1,250 mcg PO WEEKLY 0RF Label Comments: TAKE 1 CAPSULE BY MOUTH EVERY WEEK mesalamine [Apriso] 0.375 GM capsule,extended release 24hr 4 cap PO DAILY 0RF simethicone 125 mg Tablet 125 mg PO DAILY 0RF ED Provider: CLARISSE FIERRO Condition: Fair Physician Progress Note: []
[2021-11-07] MEDS ORDERED: ZANAFLEX PO PRN (14:57)
[2021-11-07] MEDS ORDERED: ADALIMUMAB 20 MG/0.4 ML SUBCUT SCH (15:00)
--- NOTE | 2021-11-07 15:20 | PCM ---
Chief Complaint Chief Complaint: arabella been coughing and running a fever and i cant eat History of Present Illness History of Present Illness: This is a 46 yr old male who presented to the er with several days of fever, cough , poor appetite and weight loss. Review of Systems Constitutional: Reports Fever, Chills, Weakness, Fatigue and Loss of appetite Eyes: Reports No symptoms Ears: Reports No symptoms Nose: Reports No symptoms Throat: Reports No symptoms Mouth: Reports No symptoms Respiratory: Reports Cough and Shortness of air Cardiovascular: Reports No symptoms Gastrointestinal: Reports No symptoms Genitourinary: Reports No symptoms Neurological: Reports No symptoms Musculoskeletal: Reports No symptoms Skin: Reports No symptoms Immunology: Reports No symptoms Hematology: Reports No symptoms Endocrine: Reports No symptoms Psychiatric: Reports No symptoms Habits: Reports Tobacco use Allergies Allergies Allergy/AdvReac Type Severity Reaction Status Date / Time No Known Allergies Allergy Verified 11/07/21 13:12 [facility] Medical History Back pain Carpal tunnel syndrome of right wrist Conjunctivitis Depression Neck pain Ulcerative colitis Surgical History H/O colonoscopy History of musculoskeletal system surgery Social History Smoking and tobacco status: Former smoker Second hand smoke exposure: Yes Alcohol intake: never Substance use type: does not use Francoise/muslim: Uatsdin Special francoise needs: No Agree to transfusion: Yes Adopted: No Caregiver/support person: Yes Household members: spouse Housing: house Lives independently: Yes Highest education level completed: high school graduate Financial difficulty paying for basics: somewhat hard service: No longterm: No Current occupational status: disabled Pets and animals: Yes Leisure activites: fishing History of recent travel: No Sexually active: Yes Do you think of yourself as: straight/heterosexual Current gender identity: male Seatbelt use: always Helmet use: Yes Drives intoxicated or rides with intoxicated miniature train driver: No Water heater temperature set < 120 degrees: Yes Working smoke detector in home: Yes Fire extinguisher in home: Yes Carbon monoxide detector in home: Yes Firearms in home: No Medications Medications: Medications Generic Name Dose Route Start Last Admin Trade Name Freq PRN Reason Stop Dose Admin Albuterol/Ipratropium 3 ml 11/07/21 18:00 Ipratropium/Albuterol Vial.Neb NEB RTQ6H [facility] Diphenhydramine HCl 50 mg 11/07/21 21:00 Diphenhydramine Hcl 25 Mg Capsule PO BEDTIME [facility] Duloxetine HCl 60 mg 11/07/21 21:00 Duloxetine Hcl 30 Mg Capsule. PO BID SATYA Enoxaparin Sodium 40 mg 11/08/21 09:00 Enoxaparin Sodium 40 Mg/0.4 Ml Syr SUBCUT DAILY [facility] Ergocalciferol unit 11/14/21 09:00 Ergocalciferol (Vitamin D2) 50,000 Unit Capsule PO WEEKLY [facility] Gabapentin 300 mg 11/07/21 15:00 Gabapentin 300 Mg Capsule PO TID [facility] CEFTRIAXONE/D5W 1 GM PREMIX 1 gm in 50 mls @ 75 mls/hr 11/08/21 09:00 Rocephin 1 Gm/50 Ml D5w IV 11/11/21 08:59 DAILY [facility] Doxycycline Hyclate 100 mg/ 100 mls @ 50 mls/hr 11/07/21 21:00 Sodium Chloride IV 11/10/21 20:59 Q12HR [facility] Non-Formulary Medication 4 cap 11/08/21 09:00 Mesalamine [Apriso] PO DAILY [facility] Non-Formulary Medication 125 mg 11/08/21 09:00 Simethicone PO DAILY [facility] Non-Formulary Medication 40 mg 11/07/21 15:00 Adalimumab [Humira] SQ DIRECTED [facility] Sodium Chloride 1 syr 11/07/21 13:09 0.9% Sodium Chloride 10 Ml Disp.Syrin IVF PRN PRN To flush IV Tizanidine HCl 4 mg 11/07/21 14:57 Tizanidine Hcl 4 Mg Tablet PO DAILY PRN Pain Trazodone HCl 0 mg 11/07/21 15:00 Trazodone Hcl 50 Mg Tablet PO .COMPLEX SATYA Body Composition Height: 6 ft 3 in Weight: 169 lb Body Mass Index (BMI): 21.1 Vital Signs Temperature: 100.0 F Pulse Rate: 100 Respiratory Rate: 20 Blood Pressure: 123/75 O2 Sat by Pulse Oximetry: 91 Physical Examination Appearance: Reports Ill-appearing and Thin Ill-appearing: Mild Pain Distress: Not Applicable Eyes: Reports FRANSISCA, EOMI and Conjunctiva clear ENT: Reports Ears normal, Nose normal and Oropharynx normal Neck: Supple Respiratory: Reports Airway patent, Breath sounds equal, Crackles and Rhonchi Cardiovascular: Reports RRR and Pulses normal GI/: Reports Soft, Nontender, No masses and Bowel sounds normal Musculoskeletal: Reports Normal strength, ROM intact, No edema and No calf tenderness Skin: Reports Warm, Dry and Normal color Neurological: Reports Sensation intact, Motor intact, Reflexes intact, Cranial nerves intact, Alert and Oriented Psychiatric: Reports Affect appropriate and Mood appropriate Lab/Tests/Diagnostic Imaging Lab/Tests/Diagnostic Imaging: Lab Review 11/07/21 11/07/21 11/07/21 13:10 13:10 13:20 WBC RBC Hgb Hct MCV MCH MCHC RDW Coeff of Manan Plt Count Immature Gran % (Auto) Neut % (Auto) Lymph % (Auto) [place] % (Auto) Eos % (Auto) Baso % (Auto) Neut # (Auto) Lymph # (Auto) [place] # (Auto) Eos # (Auto) Baso # (Auto) Immature Gran # (Auto) Puncture Site Lbrach Base Excess 4.6 H O2 Saturation 96.7 ABG pH 7.65 H* ABG pCO2 23.0 L ABG pO2 68.0 L ABG HCO3 25.3 ABG Total CO2 26.0 H Hemoglobin 1.1 Oxyhemoglobin 95.5 Carboxyhemoglobin 2.2 H Total Hemoglobin 11.7 FiO2 % 21.0 Sodium Potassium Chloride Carbon Dioxide Anion Gap BUN Creatinine Estimated GFR (MDRD) BUN/Creatinine Ratio Glucose Lactic Acid Calcium Total Bilirubin AST ALT Alkaline Phosphatase Total Protein Albumin Globulin Albumin/Globulin Ratio Influ A Molecular Assay Negative by naat Influ B Molecular Assay Negative by naat SARS-CoV-2 Ag (Rapid) Negative 11/07/21 11/07/21 11/07/21 13:26 13:26 13:26 WBC 10.50 H RBC 3.92 L Hgb 11.5 L Hct 34.4 L MCV 87.8 MCH 29.3 MCHC 33.4 RDW Coeff of Manan 12.8 Plt Count 192 Immature Gran % (Auto) 0.5 Neut % (Auto) 78.1 H Lymph % (Auto) 13.9 [place] % (Auto) 7.2 Eos % (Auto) 0.2 Baso % (Auto) 0.1 Neut # (Auto) 8.2 H Lymph # (Auto) 1.5 [place] # (Auto) 0.8 Eos # (Auto) 0.0 Baso # (Auto) 0.0 Immature Gran # (Auto) 0.1 Puncture Site Base Excess O2 Saturation ABG pH ABG pCO2 ABG pO2 ABG HCO3 ABG Total CO2 Hemoglobin Oxyhemoglobin Carboxyhemoglobin Total Hemoglobin FiO2 % Sodium 136.6 Potassium 3.68 Chloride 101.1 Carbon Dioxide 28.3 Anion Gap 10.88 BUN 15.0 Creatinine 0.79 Estimated GFR (MDRD) 105.00 BUN/Creatinine Ratio 18.98 Glucose 112.8 H Lactic Acid 1.19 Calcium 8.94 Total Bilirubin 0.76 AST 36.4 ALT 37.3 Alkaline Phosphatase 70.2 Total Protein 7.66 Albumin 4.31 Globulin 3.35 Albumin/Globulin Ratio 1.28 Influ A Molecular Assay Influ B Molecular Assay SARS-CoV-2 Ag (Rapid) Orders Category Date Time Status ADMIT PATIENT INPATIENT .TO [facility] (MONITORED BED) ADMISSION 11/07/21 14:52 Active ADMIT PATIENT INPATIENT .TO [facility] (MONITORED BED) ADMISSION 11/07/21 14:53 Active ABG DRAW REQUEST Stat CARDIO 11/07/21 13:10 Completed EKG-(ED ONLY) Stat CARDIO 11/07/21 13:09 Completed NEBULIZER TREATMENT Routine CARDIO 11/07/21 14:55 Ordered OXYGEN Routine CARDIO 11/07/21 14:54 Ordered ACTIVITY .BR with BRP CARE 11/07/21 14:53 Active INTAKE & OUTPUT Q8HR CARE 11/07/21 14:54 Active IP: INSERT SALINE LOCK ONCE CARE 11/07/21 14:54 Active TELEMETRY MONITORING TELE CARE 11/07/21 14:53 Active TELEMETRY MONITORING TELE CARE 11/07/21 14:54 Active VITAL SIGNS Q8HR CARE 11/07/21 14:54 Active REGULAR DIET DIETARY 11/07/21 Dinner Ordered ED HEMATOLOGY TECHNICIAN APPLIED .ONCE EMERGENCY 11/07/21 13:09 Active ED IV/MEDIPORT/POWERPORT .ONCE EMERGENCY 11/07/21 13:09 Active ABG COOX Stat LAB 11/07/21 13:20 Completed BLOOD CULTURE (ED ONLY) Stat LAB 11/07/21 13:26 Received CBC W/ AUTO DIFF DAILY@0600 LAB 11/08/21 06:00 Ordered CBC W/ AUTO DIFF DAILY@0600 LAB 11/09/21 06:00 Ordered CBC W/ AUTO DIFF Stat LAB 11/07/21 13:26 Completed COMPREHENSIVE METABOLIC PANEL DAILY@0600 LAB 11/08/21 06:00 Ordered COMPREHENSIVE METABOLIC PANEL DAILY@0600 LAB 11/09/21 06:00 Ordered COMPREHENSIVE METABOLIC PANEL Stat LAB 11/07/21 13:26 Completed COVID-19 ANTIGEN TEST Stat LAB 11/07/21 13:10 Completed FLU A/B MOLECULAR Stat LAB 11/07/21 13:10 Completed LACTIC ACID Stat LAB 11/07/21 13:26 Completed URINALYSIS C & S IF INDICATED Stat LAB 11/07/21 13:10 Uncollected 0.9 % Sodium Chloride [Saline Flush] MEDS 11/07/21 13:09 Active 1 syr IVF PRN PRN Ceftriaxone/D5w 1 gm Premix [Rocephin 1 gm/50 ml D5w] MEDS 11/08/21 09:00 Ordered 1 gm in 50 ml IV DAILY Ceftriaxone/D5w 1 gm Premix [Rocephin 1 gm/50 ml D5w] MEDS 11/07/21 13:35 Discontinued 1 gm in 50 ml IV ONCE Diphenhydramine HCl [Benadryl] MEDS 11/07/21 21:00 Ordered 50 mg PO BEDTIME Doxycycline Hyclate Inj [Doxy-100] 100 mg MEDS 11/07/21 21:00 Ordered 0.9 % Sodium Chloride [Sodium Chloride 100Ml] 100 ml IV Q12HR Duloxetine HCl [Cymbalta] MEDS 11/07/21 21:00 Ordered 60 mg PO BID Enoxaparin Sodium [Lovenox] MEDS 11/08/21 09:00 Ordered 40 mg SUBCUT DAILY Ergocalciferol (Vitamin D2) [Drisdol] MEDS 11/14/21 09:00 Ordered DOSE unit PO WEEKLY Gabapentin [Neurontin] MEDS 11/07/21 15:00 Ordered 300 mg PO TID Ipratropium/Albuterol Neb [Duoneb] MEDS 11/07/21 18:00 Ordered 3 ml NEB RTQ6H Tizanidine HCl [Zanaflex] MEDS 11/07/21 14:57 Ordered 4 mg PO DAILY PRN Trazodone HCl [Desyrel] MEDS 11/07/21 15:00 Ordered See Dose Instructions PO .COMPLEX adalimumab [Humira] MEDS 11/07/21 15:00 Ordered 40 mg SQ DIRECTED mesalamine [Apriso] MEDS 11/08/21 09:00 Ordered 4 cap PO DAILY simethicone MEDS 11/08/21 09:00 Ordered 125 mg PO DAILY RESUSCITATION STATUS Routine OTHERS 11/07/21 14:[address] ABDOMEN/PELVIS WO CONTRAST Stat RADS 11/07/21 13:[address] CHEST W/O CONTRAST Stat RADS 11/07/21 13:09 Completed Medications Generic Name Dose Route Start Last Admin Trade Name Freq PRN Reason Stop Dose Admin Albuterol/Ipratropium 3 ml 11/07/21 18:00 Ipratropium/Albuterol Vial.Neb NEB RTQ6H SATYA Diphenhydramine HCl 50 mg 11/07/21 21:00 Diphenhydramine Hcl 25 Mg Capsule PO BEDTIME SATYA Duloxetine HCl 60 mg 11/07/21 21:00 Duloxetine Hcl 30 Mg Capsule.Dr PO BID SATYA Enoxaparin Sodium 40 mg 11/08/21 09:00 Enoxaparin Sodium 40 Mg/0.4 Ml Syr SUBCUT DAILY [facility]YA Ergocalciferol unit 11/14/21 09:00 Ergocalciferol (Vitamin D2) 50,000 Unit Capsule PO WEEKLY [facility] Gabapentin 300 mg 11/07/21 15:00 Gabapentin 300 Mg Capsule PO TID SATYA CEFTRIAXONE/D5W 1 GM PREMIX 1 gm in 50 mls @ 75 mls/hr 11/08/21 09:00 Rocephin 1 Gm/50 Ml D5w IV 11/11/21 08:59 DAILY SATYA Doxycycline Hyclate 100 mg/ 100 mls @ 50 mls/hr 11/07/21 21:00 Sodium Chloride IV 11/10/21 20:59 Q12HR SATYA Non-Formulary Medication 4 cap 11/08/21 09:00 Mesalamine [Apriso] PO DAILY [facility] Non-Formulary Medication 125 mg 11/08/21 09:00 Simethicone PO DAILY SATYA Non-Formulary Medication 40 mg 11/07/21 15:00 Adalimumab [Humira] SQ DIRECTED SATYA Sodium Chloride 1 syr 11/07/21 13:09 0.9% Sodium Chloride 10 Ml Disp.Syrin IVF PRN PRN To flush IV Tizanidine HCl 4 mg 11/07/21 14:57 Tizanidine Hcl 4 Mg Tablet PO DAILY PRN Pain Trazodone HCl 0 mg 11/07/21 15:00 Trazodone Hcl 50 Mg Tablet PO .COMPLEX SATYA Discontinued Medications Generic Name Dose Route Start Last Admin Trade Name Teoq PRN Reason Stop Dose Admin CEFTRIAXONE/D5W 1 GM PREMIX 1 gm in 50 mls @ 75 mls/hr 11/07/21 13:35 11/07/21 13:45 Rocephin 1 Gm/50 Ml D5w IV 11/07/21 14:14 75 mls/hr ONCE ONE Administration Assessment (1) Pneumonia: Status: Acute Code(s): J18.9 - Pneumonia, unspecified organism SNOMED Code(s): 482085665 Assessment: he is ill appearing but not toxic--sepsis markers neg--- ill with similar symptoms, covid and flu neg Plan Plan: antbx, nebs, fluid support, monitor oximetry, check labs in am
[2021-11-07 15:53] VITALS: BMI 19.0
[2021-11-07] MEDS: NEURONTIN PO SCH ×2 (16:17→21:48)
[2021-11-07] MEDS: SODIUM CHLORIDE 1,000 ML IV SCH (16:17)
[2021-11-07] MEDS ORDERED: TYLENOL PO ONE (16:17)
[2021-11-07] MEDS: DUONEB NEB SCH ×2 (17:02→22:54)
[2021-11-07 18:01] LABS: BILIRUBIN,URINE 1+ (NEGATIVE); CLARITY,URINE Clear (CLEAR); COLOR,URINE Dark (YELLOW); GLUCOSE, URINE (UA) Negative (NEGATIVE); KETONES,URINE Trace (NEGATIVE); LEUKOCYTE ESTERASE ,URINE Negative (NEGATIVE); NITRITE,URINE Negative (NEGATIVE); PROTEIN,URINE 2+ (NEGATIVE); URINE, BLOOD Trace-lysed (NEGATIVE)
[2021-11-07 18:23] LABS: BACTERIA,URINE 1+ (NOT PRESENT); MUCUS,URINE 3+ (NOT PRESENT); SQUAMOUS EPITHELIAL CELL,UR NOT PRESENT (0-5); URINE RBC, MICROSCOPIC 20-30 (0-2)
[2021-11-07] MEDS: TYLENOL PO PRN (20:09)
[2021-11-07] MEDS ORDERED: BENADRYL PO SCH (21:00)
[2021-11-07] MEDS: DOXY-100 100 MG in SODIUM CHLORIDE 100ML 100 ML IV SCH (21:47)
[2021-11-07] MEDS: DESYREL PO SCH (21:48)
[2021-11-07] MEDS: CYMBALTA PO SCH (21:48)
[2021-11-08] MEDS: DUONEB NEB SCH ×4 (04:40→23:00)
[2021-11-08 05:26] LABS: BASOPHILS % (AUTO) 0.1 % (0.0-3.0); HEMATOCRIT 32.9 % (42.0-52.0); HEMOGLOBIN 10.8 g/dl (14.0-18.0); IMMATURE GRANULOCYTE # (AUTO) 0.1 (0.0-1.0); IMMATURE GRANULOCYTE % (AUTO) 0.6 % (0.0-5.0); LYMPHOCYTES # (AUTO) 1.2 K/uL (0.60-3.4); LYMPHOCYTES % (AUTO) 11.4 (10.0-50.0); MEAN CORPUSCULAR HEMOGLOBIN 28.8 pg (27.0-31.0); MEAN CORPUSCULAR HGB CONC 32.8 (31.8-35.4); MEAN CORPUSCULAR VOLUME 87.7 fl (80.0-94.0); MONOCYTES # (AUTO) 1.2 K/uL (0.4-2.0); MONOCYTES % (AUTO) 10.8 (0-10); NEUTROPHILS # (AUTO) 8.4 K/ul (2.0-6.9); NEUTROPHILS % (AUTO) 77.1 % (42.2-75.2); PLATELET COUNT 181 10^3/uL (140-440); RDW COEFFICIENT OF VARIATION 12.7 % (11.6-14.8); RED BLOOD COUNT 3.75 10^6/ul (4.70-6.10); WHITE BLOOD COUNT 10.85 K/ul (4.2-10.2)
[2021-11-08 05:41] LABS: ALANINE AMINOTRANSFERASE 28.5 U/L (0-50); ALBUMIN 3.7 g/dL (3.5-5.0); ALKALINE PHOSPHATASE 69.6 U/L (38-126); ASPARTATE AMINO TRANSFERASE 33.1 U/L (17-59); BILIRUBIN,TOTAL 0.7 mg/dL (0.2-1.3); BLOOD UREA NITROGEN 14.9 mg/dL (9-20); CALCIUM 8.37 mg/dL (8.4-10.2); CARBON DIOXIDE 25.1 mmol/L (22-30.0); CHLORIDE 104.9 mmol/L (98-107); CREATININE 0.73 mg/dL (0.60-1.10); GLUCOSE 119.7 mg/dL (74-106); POTASSIUM 3.71 mmol/L (3.5-5.1); TOTAL PROTEIN 6.69 g/dL (6.3-8.2)
[2021-11-08] MEDS: TYLENOL PO PRN (05:41)
[2021-11-08] MEDS: SODIUM CHLORIDE 1,000 ML IV SCH ×3 (07:23→23:25)
[2021-11-08] MEDS ORDERED: SIMETHICONE 125 MG PO SCH (09:00)
[2021-11-08] MEDS: MESALAMINE 0.375 GM PO SCH (09:30)
[2021-11-08] MEDS: CYMBALTA PO SCH ×2 (09:31→20:42)
[2021-11-08] MEDS: NEURONTIN PO SCH ×3 (09:31→20:42)
[2021-11-08] MEDS: ROCEPHIN 1 GM/50 ML D5W 1 GM/50 ML BAG IV SCH (09:31)
[2021-11-08] MEDS: LOVENOX SUBCUT SCH (09:31)
[2021-11-08] MEDS: MYLICON PO SCH (09:31)
[2021-11-08] MEDS: DOXY-100 100 MG in SODIUM CHLORIDE 100ML 100 ML IV SCH ×2 (10:27→20:42)
[2021-11-08] MEDS: MUCINEX PO SCH ×2 (10:31→20:42)
[2021-11-08] MEDS: DESYREL PO SCH (20:42)
--- NOTE | 2021-11-08 23:08 | PCM.PROG ---
Date Seen by Provider: 11/08/21 Time Seen by Provider: 09:00 Subjective: Date of Admit - 11/07/21 Admitting dx - Pneumonia. He states that he is starting to feel better. Still with cough, no wheezing. Objective: Vitals: T=99.1 F, P=61, R=18, BT=547/57, SPO2=97 HEENT: [WNL] Neck: [supple] Lungs: [rhonchi, no wheeze] CVS: RRR[] Abdomen: [soft] Extremities: [intact] Neurological: [intact] Skin: [wnl] Lab/Tests/Diagnostic Imaging: [see chart] (1) Pneumonia: Status: Acute Code(s): J18.9 - Pneumonia, unspecified organism SNOMED Code(s): 474863635 Assessment: On rocephin and doxy, clinically slightly improved. O2 sat maintained over 92% on RA, he does not like the oxygen. Plan: Continue rocephin and doxy, oxygen and neb tx prn.
[2021-11-09] MEDS: DUONEB NEB SCH ×3 (04:55→17:41)
[2021-11-09] MEDS: SODIUM CHLORIDE 1,000 ML IV SCH ×2 (05:10→13:49)
[2021-11-09 05:24] LABS: BASOPHILS % (AUTO) 0.3 % (0.0-3.0); EOSINOPHILS # (AUTO) 0.1 K/ul (0.0-0.7); EOSINOPHILS % (AUTO) 2.5 % (0.0-7.0); HEMATOCRIT 30.2 % (42.0-52.0); IMMATURE GRANULOCYTE % (AUTO) 0.3 % (0.0-5.0); LYMPHOCYTES # (AUTO) 1.5 K/uL (0.60-3.4); LYMPHOCYTES % (AUTO) 42.7 (10.0-50.0); MEAN CORPUSCULAR HEMOGLOBIN 29.2 pg (27.0-31.0); MEAN CORPUSCULAR HGB CONC 33.1 (31.8-35.4); MONOCYTES # (AUTO) 0.7 K/uL (0.4-2.0); MONOCYTES % (AUTO) 18.8 (0-10); NEUTROPHILS # (AUTO) 1.3 K/ul (2.0-6.9); NEUTROPHILS % (AUTO) 35.4 % (42.2-75.2); PLATELET COUNT 193 10^3/uL (140-440); RDW COEFFICIENT OF VARIATION 12.9 % (11.6-14.8); RED BLOOD COUNT 3.43 10^6/ul (4.70-6.10); WHITE BLOOD COUNT 3.61 K/ul (4.2-10.2)
[2021-11-09 05:35] LABS: ALANINE AMINOTRANSFERASE 23.9 U/L (0-50); ALBUMIN 3.37 g/dL (3.5-5.0); ALKALINE PHOSPHATASE 56.9 U/L (38-126); ASPARTATE AMINO TRANSFERASE 34.6 U/L (17-59); BILIRUBIN,TOTAL 0.42 mg/dL (0.2-1.3); BLOOD UREA NITROGEN 13.2 mg/dL (9-20); CALCIUM 8.6 mg/dL (8.4-10.2); CHLORIDE 107.7 mmol/L (98-107); CREATININE 0.73 mg/dL (0.60-1.10); GLUCOSE 99.6 mg/dL (74-106); POTASSIUM 4.04 mmol/L (3.5-5.1); SODIUM 138.8 mmol/L (134.5-145); TOTAL PROTEIN 6.41 g/dL (6.3-8.2)
[2021-11-09] MEDS: ROCEPHIN 1 GM/50 ML D5W 1 GM/50 ML BAG IV SCH (08:44)
[2021-11-09] MEDS: MUCINEX PO SCH ×2 (08:44→21:10)
[2021-11-09] MEDS: MYLICON PO SCH (08:45)
[2021-11-09] MEDS: NEURONTIN PO SCH ×3 (08:45→21:09)
[2021-11-09] MEDS: CYMBALTA PO SCH ×2 (08:45→21:09)
[2021-11-09] MEDS: MESALAMINE 0.375 GM PO SCH (08:46)
[2021-11-09] MEDS: LOVENOX SUBCUT SCH (08:46)
[2021-11-09] MEDS: DOXY-100 100 MG in SODIUM CHLORIDE 100ML 100 ML IV SCH ×2 (09:43→21:10)
[2021-11-09] MEDS: DESYREL PO SCH (21:10)
[2021-11-09] MEDS ORDERED: TORADOL IM ONE (21:31)
[2021-11-09] MEDS: PRILOSEC PO SCH (22:08)
[2021-11-09] MEDS: MOTRIN PO SCH (22:09)
[2021-11-09] MEDS: XOPENEX 1.25 MG NEB SCH (23:01)
[2021-11-10] MEDS: SODIUM CHLORIDE 1,000 ML IV SCH ×2 (03:46→06:17)
--- NOTE | 2021-11-10 05:40 | PCM.PROG ---
Date Seen by Provider: 11/09/21 Time Seen by Provider: 12:00 Subjective: No acute chest pain or SOB Objective: Vitals: T=97.5 F, P=58, R=18, WJ=082/77, SPO2=99 HEENT: []wnl Neck: []supple Lungs: []minimal occasional wheezes CVS: []rrr Abdomen: []benign Extremities: []wnl Neurological: []non-focal. Skin: []wnl. Lab/Tests/Diagnostic Imaging: [] (1) Pneumonia: Status: Acute Code(s): J18.9 - Pneumonia, unspecified organism SNOMED Code(s): 766288422 (2) COPD (chronic obstructive pulmonary disease): Status: Acute Code(s): J44.9 - Chronic obstructive pulmonary disease, unspecified SNOMED Code(s): 76030032 Plan: Continue Tx
[2021-11-10 05:42] VITALS: BP 116/58; TEMP 97.6
[2021-11-10] MEDS: XOPENEX 1.25 MG NEB SCH (05:45)
--- NOTE | 2021-11-10 05:53 | PCM.PROG ---
Date Seen by Provider: 11/09/21 Time Seen by Provider: 21:30 Subjective: left chest pain and left upper and lower limb numbness x this pm Objective: Vitals: T=97.6 F, P=65, R=18, PQ=032/58, SPO2=98 HEENT: []wnl Neck: []supple Lungs: [] mild posterior wheezes CVS: []rrr Abdomen: []benign Extremities: []no marked abnormality. Neurological: []non-focal Skin: []wnl. Lab/Tests/Diagnostic Imaging: []Pt EKG: was normal sinus, with no acute ST or T wave changes. (1) Pneumonia: Status: Acute Code(s): J18.9 - Pneumonia, unspecified organism SNOMED Code(s): 485295100 (2) COPD (chronic obstructive pulmonary disease): Status: Acute Code(s): J44.9 - Chronic obstructive pulmonary disease, unspecified SNOMED Code(s): 07785372 (3) Pleurisy: Status: Acute Code(s): R09.1 - Pleurisy SNOMED Code(s): 101288320 Plan: Continue Tx Add Tx for pleurisy.
[2021-11-10] MEDS: MOTRIN PO SCH (05:55)
[2021-11-10] MEDS: PRILOSEC PO SCH (06:17)
[2021-11-10] MEDS: MYLICON PO SCH (08:30)
[2021-11-10] MEDS: MUCINEX PO SCH (08:31)
[2021-11-10] MEDS: MESALAMINE 0.375 GM PO SCH (08:31)
[2021-11-10] MEDS: NEURONTIN PO SCH (08:31)
[2021-11-10] MEDS: ROCEPHIN 1 GM/50 ML D5W 1 GM/50 ML BAG IV SCH (08:31)
[2021-11-10] MEDS: CYMBALTA PO SCH (08:31)
[2021-11-10] MEDS: LOVENOX SUBCUT SCH (08:34)
[2021-11-10] MEDS: DOXY-100 100 MG in SODIUM CHLORIDE 100ML 100 ML IV SCH (09:50)
--- NOTE | 2021-11-10 09:55 | PCM.DC ---
Final Diagnosis: Date of admit - 11/07/21 Date of discharge - 11/10/21 Discharge diagnosis - pneumonia. Physical Exam Appearance: Well-appearing Ill-appearing: None Pain Distress: None Eyes: FRANSISCA ENT: Oropharynx normal Neck: Supple Respiratory: Airway patent and Breath sounds clear GI/: Soft and Nontender Musculoskeletal: Normal strength and ROM intact Skin: Warm and Dry Neurological: Sensation intact, Motor intact and Alert Psychiatric: Affect appropriate and Mood appropriate (1) Pneumonia: Status: Acute Code(s): J18.9 - Pneumonia, unspecified organism SNOMED Code(s): 076238774 (2) COPD (chronic obstructive pulmonary disease): Status: Acute Code(s): J44.9 - Chronic obstructive pulmonary disease, unspecified SNOMED Code(s): 77955942 (3) Pleurisy: Status: Acute Code(s): R09.1 - Pleurisy SNOMED Code(s): 112535620 Reason for Hospitalization: Admitted with a mild pneumonia. Prognosis/Condition at Discharge: Stable. Good. Medications at Discharge: Ambulatory Orders Medication Instructions Recorded mesalamine 0.375 gram 4 cap PO DAILY 01/15/19 capsule,extended release 24 hr (Apriso) adalimumab 20 mg/0.4 mL 40 mg SQ DIRECTED 03/27/19 subcutaneous syringe kit (Humira) simethicone 125 mg tablet 125 mg PO DAILY 04/21/19 gabapentin 300 mg capsule 300 mg PO TID #90 cap 07/03/20 duloxetine 60 mg capsule,delayed 60 mg PO BID 30 Days #60 tab-cap 10/09/20 release hydroxyzine HCl 10 mg tablet See Rx Instructions .ROUTE 10/09/20 .COMPLEX #30 tab tizanidine 4 mg tablet 4 mg PO DAILY PRN #30 tab 10/09/20 trazodone 50 mg tablet See Rx Instructions .ROUTE 10/09/20 .COMPLEX #30 tab diphenhydramine HCl 50 mg capsule 50 mg PO BEDTIME 11/07/21 ergocalciferol (vitamin D2) 1,250 1,250 mcg PO WEEKLY 11/07/21 mcg (50,000 unit) capsule Lab/Diagnostics: Laboratory Tests 11/07/21 11/07/21 11/07/21 13:10 13:10 13:20 WBC RBC Hgb Hct MCV MCH MCHC RDW Coeff of Manan Plt Count Immature Gran % (Auto) Neut % (Auto) Lymph % (Auto) Lea % (Auto) Eos % (Auto) Baso % (Auto) Neut # (Auto) Lymph # (Auto) Lea # (Auto) Eos # (Auto) Baso # (Auto) Immature Gran # (Auto) Puncture Site Lbrach Base Excess 4.6 H O2 Saturation 96.7 ABG pH 7.65 H* ABG pCO2 23.0 L ABG pO2 68.0 L ABG HCO3 25.3 ABG Total CO2 26.0 H Hemoglobin 1.1 Oxyhemoglobin 95.5 Carboxyhemoglobin 2.2 H Total Hemoglobin 11.7 FiO2 % 21.0 Sodium Potassium Chloride Carbon Dioxide Anion Gap BUN Creatinine Estimated GFR (MDRD) BUN/Creatinine Ratio Glucose Lactic Acid Calcium Total Bilirubin AST ALT Alkaline Phosphatase Troponin I Total Protein Albumin Globulin Albumin/Globulin Ratio Urine Color Urine Clarity Urine pH Ur Specific [place] Urine Protein Urine Glucose (UA) Urine Ketones Urine Blood Urine Nitrite Urine Bilirubin Urine Urobilinogen Ur Leukocyte Esterase Urine Microscopic RBC Urine Microscopic WBC Ur Squamous Epith Cells Urine Bacteria Urine Mucus Influ A Molecular Assay Negative by naat Influ B Molecular Assay Negative by naat SARS-CoV-2 Ag (Rapid) Negative 11/07/21 11/07/21 11/07/21 13:26 13:26 13:26 WBC 10.50 H RBC 3.92 L Hgb 11.5 L Hct 34.4 L MCV 87.8 MCH 29.3 MCHC 33.4 RDW Coeff of Manan 12.8 Plt Count 192 Immature Gran % (Auto) 0.5 Neut % (Auto) 78.1 H Lymph % (Auto) 13.9 Lea % (Auto) 7.2 Eos % (Auto) 0.2 Baso % (Auto) 0.1 Neut # (Auto) 8.2 H Lymph # (Auto) 1.5 Lea # (Auto) 0.8 Eos # (Auto) 0.0 Baso # (Auto) 0.0 Immature Gran # (Auto) 0.1 Puncture Site Base Excess O2 Saturation ABG pH ABG pCO2 ABG pO2 ABG HCO3 ABG Total CO2 Hemoglobin Oxyhemoglobin Carboxyhemoglobin Total Hemoglobin FiO2 % Sodium 136.6 Potassium 3.68 Chloride 101.1 Carbon Dioxide 28.3 Anion Gap 10.88 BUN 15.0 Creatinine 0.79 Estimated GFR (MDRD) 105.00 BUN/Creatinine Ratio 18.98 Glucose 112.8 H Lactic Acid 1.19 Calcium 8.94 Total Bilirubin 0.76 AST 36.4 ALT 37.3 Alkaline Phosphatase 70.2 Troponin I Total Protein 7.66 Albumin 4.31 Globulin 3.35 Albumin/Globulin Ratio 1.28 Urine Color Urine Clarity Urine pH Ur Specific [place] Urine Protein Urine Glucose (UA) Urine Ketones Urine Blood Urine Nitrite Urine Bilirubin Urine Urobilinogen Ur Leukocyte Esterase Urine Microscopic RBC Urine Microscopic WBC Ur Squamous Epith Cells Urine Bacteria Urine Mucus Influ A Molecular Assay Influ B Molecular Assay SARS-CoV-2 Ag (Rapid) 11/07/21 11/08/21 11/08/21 17:44 05:04 05:04 WBC 10.85 H RBC 3.75 L Hgb 10.8 L Hct 32.9 L MCV 87.7 MCH 28.8 MCHC 32.8 RDW Coeff of Manan 12.7 Plt Count 181 Immature Gran % (Auto) 0.6 Neut % (Auto) 77.1 H Lymph % (Auto) 11.4 Lea % (Auto) 10.8 H Eos % (Auto) 0.0 Baso % (Auto) 0.1 Neut # (Auto) 8.4 H Lymph # (Auto) 1.2 Lea # (Auto) 1.2 Eos # (Auto) 0.0 Baso # (Auto) 0.0 Immature Gran # (Auto) 0.1 Puncture Site Base Excess O2 Saturation ABG pH ABG pCO2 ABG pO2 ABG HCO3 ABG Total CO2 Hemoglobin Oxyhemoglobin Carboxyhemoglobin Total Hemoglobin FiO2 % Sodium 136.0 Potassium 3.71 Chloride 104.9 Carbon Dioxide 25.1 Anion Gap 9.71 BUN 14.9 Creatinine 0.73 Estimated GFR (MDRD) 115.00 BUN/Creatinine Ratio 20.41 Glucose 119.7 H Lactic Acid Calcium 8.37 L Total Bilirubin 0.70 AST 33.1 ALT 28.5 Alkaline Phosphatase 69.6 Troponin I Total Protein 6.69 Albumin 3.70 Globulin 2.99 Albumin/Globulin Ratio 1.23 Urine Color Dark Urine Clarity Clear Urine pH 7.0 Ur Specific [place] 1.025 Urine Protein 2+ H Urine Glucose (UA) Negative Urine Ketones Trace H Urine Blood Trace-lysed Urine Nitrite Negative Urine Bilirubin 1+ H Urine Urobilinogen 1.0 H Ur Leukocyte Esterase Negative Urine Microscopic RBC 20-30 Urine Microscopic WBC 2-5 Ur Squamous Epith Cells Not present Urine Bacteria 1+ Urine Mucus 3+ Influ A Molecular Assay Influ B Molecular Assay SARS-CoV-2 Ag (Rapid) 11/09/21 11/09/21 11/09/21 05:05 05:05 20:22 WBC 3.61 L D RBC 3.43 L Hgb 10.0 L Hct 30.2 L MCV 88.0 MCH 29.2 MCHC 33.1 RDW Coeff of Manan 12.9 Plt Count 193 Immature Gran % (Auto) 0.3 Neut % (Auto) 35.4 L Lymph % (Auto) 42.7 Lea % (Auto) 18.8 H Eos % (Auto) 2.5 Baso % (Auto) 0.3 Neut # (Auto) 1.3 L Lymph # (Auto) 1.5 Lea # (Auto) 0.7 Eos # (Auto) 0.1 Baso # (Auto) 0.0 Immature Gran # (Auto) 0.0 Puncture Site Base Excess O2 Saturation ABG pH ABG pCO2 ABG pO2 ABG HCO3 ABG Total CO2 Hemoglobin Oxyhemoglobin Carboxyhemoglobin Total Hemoglobin FiO2 % Sodium 138.8 Potassium 4.04 Chloride 107.7 H Carbon Dioxide 28.0 Anion Gap 7.14 BUN 13.2 Creatinine 0.73 Estimated GFR (MDRD) 115.00 BUN/Creatinine Ratio 18.08 Glucose 99.6 Lactic Acid Calcium 8.60 Total Bilirubin 0.42 AST 34.6 ALT 23.9 Alkaline Phosphatase 56.9 Troponin I < 0.012 Total Protein 6.41 Albumin 3.37 L Globulin 3.04 Albumin/Globulin Ratio 1.10 Urine Color Urine Clarity Urine pH Ur Specific [place] Urine Protein Urine Glucose (UA) Urine Ketones Urine Blood Urine Nitrite Urine Bilirubin Urine Urobilinogen Ur Leukocyte Esterase Urine Microscopic RBC Urine Microscopic WBC Ur Squamous Epith Cells Urine Bacteria Urine Mucus Influ A Molecular Assay Influ B Molecular Assay SARS-CoV-2 Ag (Rapid) 11/09/21 22:57 WBC RBC Hgb Hct MCV MCH MCHC RDW Coeff of Manan Plt Count Immature Gran % (Auto) Neut % (Auto) Lymph % (Auto) Lea % (Auto) Eos % (Auto) Baso % (Auto) Neut # (Auto) Lymph # (Auto) Lea # (Auto) Eos # (Auto) Baso # (Auto) Immature Gran # (Auto) Puncture Site Base Excess O2 Saturation ABG pH ABG pCO2 ABG pO2 ABG HCO3 ABG Total CO2 Hemoglobin Oxyhemoglobin Carboxyhemoglobin Total Hemoglobin FiO2 % Sodium Potassium Chloride Carbon Dioxide Anion Gap BUN Creatinine Estimated GFR (MDRD) BUN/Creatinine Ratio Glucose Lactic Acid Calcium Total Bilirubin AST ALT Alkaline Phosphatase Troponin I < 0.012 Total Protein Albumin Globulin Albumin/Globulin Ratio Urine Color Urine Clarity Urine pH Ur Specific [place] Urine Protein Urine Glucose (UA) Urine Ketones Urine Blood Urine Nitrite Urine Bilirubin Urine Urobilinogen Ur Leukocyte Esterase Urine Microscopic RBC Urine Microscopic WBC Ur Squamous Epith Cells Urine Bacteria Urine Mucus Influ A Molecular Assay Influ B Molecular Assay SARS-CoV-2 Ag (Rapid) [place] [address] Report : [id number] Signed Patient: ESTELITA RAO Acct:[id number] Medical Record: [id number] : 1975 Loc: ED Room/Bed: Age/Sex: 46 / M ADM Status: REG ER Date of Service: 11/07/21 Ordering Physician: CLARISSE FIERRO MD Procedure(s): CT CHEST W/O CONTRAST Report Number(s): [id number] Accession Number(s): [id number] cc: ANTONIO CASAS ; CLARISSE FIERRO MD EXAM: Noncontrast chest CT HISTORY: Cough, fever COMPARISON: 04/22/2019 chest x-ray, 02/16/[address] TECHNIQUE: Axial noncontrast of the chest with sagittal and coronal reformats. FINDINGS: Right lower lobe multifocal patchy consolidation is identified. Mild right middle lobe consolidation is seen. There is mild patchy nodularity of the right upper lobe measuring 0.6 cm on axial image 13. A few small calcified granulomas present. No pneumothorax or pleural effusion is seen. Heart size is normal. No mediastinal lymphadenopathy is identified. Cervical ACDF is noted. IMPRESSION: Multifocal right lung pneumonia, most prominent in the right lower lobe. Recommend follow-up CT in 3 months to document resolution given the nodular appearance in the right upper lobe. Follow-ups: PCP one week Discharge Disposition: Home Hospital Course: 46 y/o male admitted with pneumonia, borderline hypoxemia. COVID and flu neg ative. Treated with IV rocephin and doxy. Made steady improvement and ready for d/c after 3 days, no oxygen required. No SOA. Stable and VS WNL. Plan: D/C home today on levaquin 500 mg daily for one week. This discharge physical done [id number] and total time in discharge is 40 minutes.
[2021-11-14] MEDS ORDERED: DRISDOL PO SCH (09:00)
== END 2021-11-10 10:24 | disposition home or self-care (01) | DRG 195 ==
LOC: ED 12:54 → MEDSURG A 15:12
PROVIDERS: ADMIT Family Medicine; ATTEND Emergency Medicine
DX: R50.9 Fever, unspecified; Z79.899 Other long term (current) drug therapy; R09.1 Pleurisy; J18.9 Pneumonia, unspecified organism; Z79.01 Long term (current) use of anticoagulants; Z20.822 Contact with and (suspected) exposure to COVID-19; J44.9 Chronic obstructive pulmonary disease, unspecified; Z51.81 Encounter for therapeutic drug level monitoring; R53.1 Weakness

== ENCOUNTER 2022-06-17 06:09 | Observation (INO) ==
[2022-06-17] MEDS ORDERED: TORADOL IVP ONE (06:37)
[2022-06-17] MEDS ORDERED: ZOFRAN 4 MG/2 ML IVP ONE (06:38)
[2022-06-17] MEDS ORDERED: SODIUM CHLORIDE 1,000 ML IV STA (06:40)
[2022-06-17 06:53] LABS: BASOPHILS % (AUTO) 0.2 % (0.0-3.0); EOSINOPHILS # (AUTO) 0.1 K/ul (0.0-0.7); EOSINOPHILS % (AUTO) 0.6 % (0.0-7.0); HEMATOCRIT 44.6 % (42.0-52.0); HEMOGLOBIN 14.7 g/dl (14.0-18.0); IMMATURE GRANULOCYTE # (AUTO) 0.1 (0.0-1.0); IMMATURE GRANULOCYTE % (AUTO) 0.4 % (0.0-5.0); LYMPHOCYTES # (AUTO) 1.8 K/uL (0.60-3.4); LYMPHOCYTES % (AUTO) 14.6 (10.0-50.0); MEAN CORPUSCULAR HEMOGLOBIN 29.6 pg (27.0-31.0); MEAN CORPUSCULAR VOLUME 89.7 fl (80.0-94.0); MONOCYTES # (AUTO) 0.8 K/uL (0.4-2.0); MONOCYTES % (AUTO) 6.7 (0-10); NEUTROPHILS # (AUTO) 9.4 K/ul (2.0-6.9); NEUTROPHILS % (AUTO) 77.5 % (42.2-75.2); PLATELET COUNT 267 10^3/uL (140-440); RDW COEFFICIENT OF VARIATION 12.7 % (11.6-14.8); RED BLOOD COUNT 4.97 10^6/ul (4.70-6.10); WHITE BLOOD COUNT 12.13 K/ul (4.2-10.2)
[2022-06-17 07:03] LABS: ALANINE AMINOTRANSFERASE 21.4 U/L (0-50); ALBUMIN 5.11 g/dL (3.5-5.0); ALKALINE PHOSPHATASE 79.8 U/L (38-126); BILIRUBIN,TOTAL 0.86 mg/dL (0.2-1.3); CALCIUM 10.71 mg/dL (8.4-10.2); CARBON DIOXIDE 25.3 mmol/L (22-30.0); CHLORIDE 101.7 mmol/L (98-107); CREATININE 1.22 mg/dL (0.60-1.10); GLUCOSE 179.4 mg/dL (74-106); POTASSIUM 4.11 mmol/L (3.5-5.1); SODIUM 139.2 mmol/L (134.5-145); TOTAL PROTEIN 9.78 g/dL (6.3-8.2)
[2022-06-17] MEDS ORDERED: DILAUDID 0.5 MG/0.5 ML SYRINGE IVP STA (07:13)
--- NOTE | 2022-06-17 07:13 | DI ---
EXAM: PA and lateral views of the chest HISTORY: Cough. COMPARISON: Chest x-ray 04/22/2019 FINDINGS: The cardiomediastinal silhouette is normal. There is no pneumothorax or pleural effusion. There is no consolidation, nodule or mass. The osseous structures demonstrate degenerative disease . IMPRESSION: No acute cardiopulmonary process
[2022-06-17 07:17] LABS: BILIRUBIN,URINE 1+ (NEGATIVE); CLARITY,URINE Clear (CLEAR); COLOR,URINE Dark (YELLOW); GLUCOSE, URINE (UA) Negative (NEGATIVE); KETONES,URINE Negative (NEGATIVE); LEUKOCYTE ESTERASE ,URINE Negative (NEGATIVE); NITRITE,URINE Negative (NEGATIVE); PROTEIN,URINE 2+ (NEGATIVE); URINE, BLOOD Negative (NEGATIVE)
--- NOTE | 2022-06-17 07:19 | ED.PDOC ---
General ED Provider: Dr. SARTHAK HASTINGS Chief Complaint: Abdominal Pain Stated Complaint: One day hx of progressive abdominal discomfort with some diarrhea, not bloody, some emesis and vomiting. No fever. Hx ulcerative colitis and this is a possible flare. Time Seen by Provider: 06/17/22 07:18 Mode of Arrival: Walk-In Information Source: Patient and Family Exam Limitations: No limitations Primary Care Provider: ANTONIO CASAS Nursing and Triage Documentation Reviewed and Agree: Yes Does patient meet sepsis criteria?: No System Inflammatory Response Syndrome: Not Applicable Sepsis Protocol: For patient's 13 years and over: Temp is 96.8 and below OR 101 and greater Pulse >90 BPM Resp >20/minute Acutely Altered Mental Status Are patient's symptoms suggestive of a new infection, such as: -Pneumonia -Skin, Soft Tissue -Endocarditis -UTI -Bone, Joint Infection -Implantable Device -Acute Abdominal Infection -Wound Infection -Meningitis -Blood Stream Catheter Infection -Unknown GI Complaint Exam Vomiting/Diarrhea Complaint/Exam Onset/Duration: one d Symptoms Are: Still present Episodes of Vomiting over last 24 Hours: 2 Episodes of Diarrhea Over Last 24 Hours: 10 Initial Severity: Mild Current Severity: Moderate Character of Vomiting: Reports Non-bilious Character of Diarrhea: Reports Watery and Mucoid Aggravating: Reports Food Alleviating: Reports None Associated Signs and Symptoms: Reports Light-headedness, Abdominal pain and Cramping Non-GI Risk Factors: Reports None Surgical Obstruction Risk Factors: Reports None Related Surgical History: Reports None Abdominal Findings: Present Abdominal distention (crampy pain) Review of Systems Review Of Systems Constitutional: Reports Malaise, Weakness and Loss of appetite Eyes: Reports No symptoms Ears, Nose, Mouth, Throat: Reports No symptoms Respiratory: Reports Cough Cardiac: Reports No symptoms GI: Reports Abdominal pain, Diarrhea, Nausea and Poor appetite : Reports No symptoms Musculoskeletal: Reports No symptoms Skin: Reports No symptoms Endocrine: Reports No symptoms Hematologic/Lymphatic: Reports No symptoms All Other Systems: Reviewed and Negative [facility] Medical History Back pain Carpal tunnel syndrome of right wrist Conjunctivitis COPD (chronic obstructive pulmonary disease) Depression Neck pain Pleurisy Ulcerative colitis Family History Other No known health problems Social History Smoking and tobacco status: Former smoker Second hand smoke exposure: Yes Alcohol intake: never Substance use type: does not use Francoise/congregation: [employer] Special francoise needs: No Agree to transfusion: Yes Adopted: No Caregiver/support person: Yes Household members: spouse Housing: house Lives independently: Yes Highest education level completed: high school graduate Financial difficulty paying for basics: somewhat hard service: No assisted: No Current occupational status: disabled Pets and animals: Yes Leisure activites: fishing History of recent travel: No Sexually active: Yes Do you think of yourself as: straight/heterosexual Current gender identity: male Seatbelt use: always Helmet use: Yes Drives intoxicated or rides with intoxicated wrecking car driver: No Water heater temperature set < 120 degrees: Yes Working smoke detector in home: Yes Fire extinguisher in home: Yes Carbon monoxide detector in home: Yes Firearms in home: No Surgical History H/O colonoscopy History of back surgery History of musculoskeletal system surgery History of neck surgery Physical Exam Physical Exam Appearance: Reports Ill-appearing Ill-appearing: Moderate Pain Distress: Moderate Eyes: Reports FRANSISCA ENT: Reports Oropharynx normal Neck: Supple Respiratory: Reports Airway patent and Rhonchi Cardiovascular: Reports RRR and Pulses normal GI/: Reports Soft and Tender (lower abdomen) Musculoskeletal: Reports Normal strength and ROM intact Skin: Reports Warm and Dry Neurological: Reports Sensation intact and Motor intact Psychiatric: Reports Affect appropriate and Mood appropriate Interpretation Radiology Interpretation Radiology Interpretation By: Radiologist Radiology Results: No acute changes Exam Interpreted: Portable CXR Xray Comments: COPD Radiology Interpretation By: Radiologist Radiology Results: Positive Exam Interpreted: CT Scan Xray Comments: abd/pel - enteritis, lung base pneumonitis EKG Interpretation Time of EKG #1: 07:36 Rate: Normal Rhythm: Sinus Ectopy: None [place]: NL ST Segment: Normal Interpretation: WNL Physician Notification Case Discussed Admit To: Observation Critical Care Note Critical Care Note Total Critical Care Time (mins): 0 Course Course Hematology/Chemistry: 06/17/22 06:50 06/17/22 06:50 Orders, Labs, Meds: Lab Review 06/17/22 06/17/22 06/17/22 06:50 06:50 06:50 WBC 12.13 H RBC 4.97 Hgb 14.7 Hct 44.6 MCV 89.7 MCH 29.6 MCHC 33.0 RDW Coeff of Manan 12.7 Plt Count 267 Immature Gran % (Auto) 0.4 Neut % (Auto) 77.5 H Lymph % (Auto) 14.6 [place] % (Auto) 6.7 Eos % (Auto) 0.6 Baso % (Auto) 0.2 Neut # (Auto) 9.4 H Lymph # (Auto) 1.8 [place] # (Auto) 0.8 Eos # (Auto) 0.1 Baso # (Auto) 0.0 Immature Gran # (Auto) 0.1 Puncture Site Base Excess O2 Saturation ABG pH ABG pCO2 ABG pO2 ABG HCO3 ABG Total CO2 Hemoglobin Oxyhemoglobin Carboxyhemoglobin Total Hemoglobin FiO2 % Sodium 139.2 Potassium 4.11 Chloride 101.7 Carbon Dioxide 25.3 Anion Gap 16.31 BUN 18.0 Creatinine 1.22 H Estimated GFR (MDRD) 63.00 BUN/Creatinine Ratio 14.75 Glucose 179.4 H Calcium 10.71 H Total Bilirubin 0.86 AST 55.0 ALT 21.4 Alkaline Phosphatase 79.8 Troponin I < 0.012 Total Protein 9.78 H Albumin 5.11 H Globulin 4.67 Albumin/Globulin Ratio 1.09 Urine Color Urine Clarity Urine pH Ur Specific [place] Urine Protein Urine Glucose (UA) Urine Ketones Urine Blood Urine Nitrite Urine Bilirubin Urine Urobilinogen Ur Leukocyte Esterase Ur Squamous Epith Cells Urine Mucus Influ A Molecular Assay Influ B Molecular Assay SARS CoV-2 RNA Rapid MANDO 06/17/22 06/17/22 06/17/22 07:00 07:00 07:10 WBC RBC Hgb Hct MCV MCH MCHC RDW Coeff of Manan Plt Count Immature Gran % (Auto) Neut % (Auto) Lymph % (Auto) [place] % (Auto) Eos % (Auto) Baso % (Auto) Neut # (Auto) Lymph # (Auto) [place] # (Auto) Eos # (Auto) Baso # (Auto) Immature Gran # (Auto) Puncture Site Base Excess O2 Saturation ABG pH ABG pCO2 ABG pO2 ABG HCO3 ABG Total CO2 Hemoglobin Oxyhemoglobin Carboxyhemoglobin Total Hemoglobin FiO2 % Sodium Potassium Chloride Carbon Dioxide Anion Gap BUN Creatinine Estimated GFR (MDRD) BUN/Creatinine Ratio Glucose Calcium Total Bilirubin AST ALT Alkaline Phosphatase Troponin I Total Protein Albumin Globulin Albumin/Globulin Ratio Urine Color Dark Urine Clarity Clear Urine pH 6.0 Ur Specific [place] >=1.030 Urine Protein 2+ H Urine Glucose (UA) Negative Urine Ketones Negative Urine Blood Negative Urine Nitrite Negative Urine Bilirubin 1+ H Urine Urobilinogen 1.0 H Ur Leukocyte Esterase Negative Ur Squamous Epith Cells Not present Urine Mucus 2+ Influ A Molecular Assay Negative by naat Influ B Molecular Assay Negative by naat SARS CoV-2 RNA Rapid MANDO Negative 06/17/22 07:36 WBC RBC Hgb Hct MCV MCH MCHC RDW Coeff of Manan Plt Count Immature Gran % (Auto) Neut % (Auto) Lymph % (Auto) [place] % (Auto) Eos % (Auto) Baso % (Auto) Neut # (Auto) Lymph # (Auto) [place] # (Auto) Eos # (Auto) Baso # (Auto) Immature Gran # (Auto) Puncture Site Rbrach Base Excess 0.9 O2 Saturation 82.6 L ABG pH 7.44 ABG pCO2 37.0 ABG pO2 45.0 L* ABG HCO3 25.1 ABG Total CO2 26.2 H Hemoglobin 1.3 Oxyhemoglobin 81.7 L Carboxyhemoglobin 2.1 H Total Hemoglobin 14.4 FiO2 % 21.0 Sodium Potassium Chloride Carbon Dioxide Anion Gap BUN Creatinine Estimated GFR (MDRD) BUN/Creatinine Ratio Glucose Calcium Total Bilirubin AST ALT Alkaline Phosphatase Troponin I Total Protein Albumin Globulin Albumin/Globulin Ratio Urine Color Urine Clarity Urine pH Ur Specific [place] Urine Protein Urine Glucose (UA) Urine Ketones Urine Blood Urine Nitrite Urine Bilirubin Urine Urobilinogen Ur Leukocyte Esterase Ur Squamous Epith Cells Urine Mucus Influ A Molecular Assay Influ B Molecular Assay SARS CoV-2 RNA Rapid MANDO Orders Category Date Time Status ADMIT OBSERVATION [PLACE PATIENT OBSERVATION] .TO ADMISSION 06/17/22 09:46 Active MEDSURG (NON-MONITORED BED) ABG DRAW REQUEST Stat CARDIO 06/17/22 07:20 Completed EKG-(ED ONLY) Stat CARDIO 06/17/22 07:20 Completed NPO REMINDER: IMAGING ONCE CARE 06/17/22 07:26 Completed ABG COOX Stat LAB 06/17/22 07:36 Completed CBC W/ AUTO DIFF Stat LAB 06/17/22 06:50 Completed CMP [COMPREHENSIVE METABOLIC PANEL] Stat LAB 06/17/22 06:50 Completed COVID [SARS COV-2 RNA RAPID MANDO] Stat LAB 06/17/22 07:00 Completed FLU A & B MOLECULAR [FLU A/B MOLECULAR] Stat LAB 06/17/22 07:00 Completed TROPONIN I Stat LAB 06/17/22 06:50 Completed URINALYSIS C & S IF INDICATED Stat LAB 06/17/22 07:10 Completed Ceftriaxone/D5w 1 gm Premix [Rocephin 1 gm/50 ml D5w] MEDS 06/17/22 09:01 Discontinued 1 gm in 50 ml IV ONCE Hydromorphone HCl [Dilaudid 0.5 mg/0.5 ml Syringe] MEDS 06/17/22 07:13 Discontinued 1 mg IVP ONCE STA Ketorolac Tromethamine [Toradol] MEDS 06/17/22 06:37 Discontinued 30 mg IVP ONCE ONE Ondansetron HCl/Pf [Zofran 4 mg/2 ml] MEDS 06/17/22 06:38 Discontinued 4 mg IVP ONCE ONE Sodium Chloride 0.9% [Sodium Chloride] 1,000 ml MEDS 06/17/22 06:[address] ABDOMEN/PELVIS W CONTRAST Stat RADS 06/17/22 07:26 Completed CXR [CHEST, 2 VIEWS PA & LAT] Stat RADS 06/17/22 06:39 Completed Medications Generic Name Dose Route Start Last Admin Trade Name Freq PRN Reason Stop Dose Admin Albuterol/Ipratropium 3 ml 06/17/22 10:06 Ipratropium/Albuterol Vial.Neb NEB RTQ6H PRN Wheezing Diphenhydramine HCl 50 mg 06/17/22 21:00 Diphenhydramine Hcl 25 Mg Capsule PO BEDTIME SATYA Duloxetine HCl 60 mg 06/17/22 21:00 Duloxetine Hcl 30 Mg Capsule.Dr PO BID SATYA Enoxaparin Sodium 40 mg 06/18/22 09:00 Enoxaparin Sodium 40 Mg/0.4 Ml Syr SUBCUT DAILY SATYA Ergocalciferol 50,000 unit 06/24/22 09:00 Ergocalciferol (Vitamin D2) 50,000 Unit Capsule PO WEEKLY SATYA Hydromorphone HCl 1 mg 06/17/22 10:06 06/17/22 12:44 Hydromorphone Hcl 1 Mg/Ml Syringe IVP 1 mg Q4HR PRN Administration Abdominal Pain Hydroxyzine HCl 12.5 mg 06/17/22 13:01 Hydroxyzine Hcl 25 Mg Tablet PO TID PRN FOR ITCHING Sodium Chloride 1,000 mls @ 75 mls/hr 06/17/22 10:30 06/17/22 10:23 Sodium Chloride IV 75 mls/hr .[id number] SATYA Administration Levofloxacin/Dextrose 750 mg in 150 mls @ 100 mls/hr 06/17/22 12:00 06/17/22 14:04 Levaquin 750 Mg/150 Ml D5w IV 06/20/22 11:59 100 mls/hr DAILY SATYA Administration Metronidazole 500 mg in 100 mls @ 100 mls/hr 06/17/22 10:30 06/17/22 12:28 Flagyl 500 Mg/100 Ml IV 06/20/22 10:29 100 mls/hr Q8HR SATYA Administration Methylprednisolone Sodium Succinate 40 mg 06/17/22 13:00 06/17/22 12:44 Methylprednisolone Sod Succ/Pf 40 Mg/Ml Vial IVP 40 mg Q8HR SATYA Administration Non-Formulary Medication 40 mg 06/30/22 09:00 Adalimumab [Humira] SUBCUT EVERY OTHER WEEK SATYA Non-Formulary Medication 4 cap 06/18/22 09:00 Mesalamine [Apriso] PO DAILY [facility] Ondansetron HCl 4 mg 06/17/22 10:01 06/17/22 12:44 Ondansetron Hcl/Pf 4 Mg/2 Ml Sdv IVP 4 mg Q4H PRN Administration Nausea / Vomiting Simethicone 160 mg 06/17/22 21:00 Simethicone 80 Mg Tab.Chew PO BID SATYA Tizanidine HCl 4 mg 06/17/22 11:53 Tizanidine Hcl 4 Mg Tablet PO DAILY PRN Spasms Trazodone HCl 50 mg 06/17/22 17:00 Trazodone Hcl 50 Mg Tablet PO QPM [facility] Discontinued Medications Generic Name Dose Route Start Last Admin Trade Name Freq PRN Reason Stop Dose Admin Hydromorphone HCl 1 mg 06/17/22 07:13 06/17/22 07:24 Hydromorphone 0.5 Mg/0.5 Ml Syringe IVP 06/17/22 07:14 1 mg ONCE STA Administration Sodium Chloride 1,000 mls @ 1,000 mls/hr 06/17/22 06:40 06/17/22 06:49 Sodium Chloride IV 06/17/22 07:39 1,000 mls/hr BOLUS STA Administration CEFTRIAXONE/D5W 1 GM PREMIX 1 gm in 50 mls @ 75 mls/hr 06/17/22 09:01 12/0 09/07 09:19 Rocephin 1 Gm/50 Ml D5w IV 06/17/22 09:40 75 mls/hr ONCE ONE Administration Ketorolac Tromethamine 30 mg 06/17/22 06:37 06/17/22 07:03 Ketorolac Tromethamine 30 Mg/Ml Vial IVP 06/17/22 06:38 30 mg ONCE ONE Administration Non-Formulary Medication 125 mg 06/17/22 21:00 Simethicone PO BID SATYA Ondansetron HCl 4 mg 06/17/22 06:38 06/17/22 07:03 Ondansetron Hcl/Pf 4 Mg/2 Ml Sdv IVP 06/17/22 06:39 4 mg ONCE ONE Administration Vital Signs: Temp Pulse Resp BP Pulse Ox 06/17/22 06:48 24 H 06/17/22 06:10 97.7 F 97 24 H 128/85 90 L Discharge Plan Discharge Patient Disposition: PLACED OBSERVATION Did you review [place] ENTERTAINER OR VARIETY ARTIST?: Not Applicable ED Provider: SARTHAK HASTINGS Condition: Stable Physician Progress Note: Enteritis, ? related to UC?, tried to call his GI DrSenia, he is out of office today. Patient does not want transferred. IV abx, fluid, etc. Mild COPD exac as well, tx for that. []
[2022-06-17 07:26] LABS: SQUAMOUS EPITHELIAL CELL,UR NOT PRESENT (0-5)
[2022-06-17 07:27] LABS: MUCUS,URINE 2+ (NOT PRESENT)
[2022-06-17 07:30] LABS: MOLECULAR FLU A NEGATIVE BY NAAT (NEGATIVE); MOLECULAR FLU B NEGATIVE BY NAAT (NEGATIVE)
[2022-06-17 07:43] LABS: SARS COV-2 RNA RAPID NAAT NEGATIVE (NEGATIVE)
[2022-06-17 07:51] LABS: ABG O2 HGB 81.7 % (95-100); ABG PH 7.44 (7.35-7.45); BEecf 0.9 (-2.0-3.0); COHb 2.1 (0.5-1.5); HCO3 25.1 (21-28); MetHb 1.3 (0-1.5); TCO2 26.2 (19-24); sO2 82.6 % (94-98); tHb 14.4 g/dl (11.7-17.4)
--- NOTE | 2022-06-17 08:25 | CT ---
EXAM: CT abdomen pelvis with contrast HISTORY: Left lower quadrant pain with history of ulcerative colitis COMPARISON: CT abdomen pelvis 11/07/2021 and priors TECHNIQUE: Serial axial images of the abdomen pelvis were performed after 100 mL is of Omnipaque IV contrast was administered. These were obtained from the lung bases through the inferior pelvis. FINDINGS: The lung bases demonstrate scattered ground-glass with small airways thickening in the low er lobes most pronounced on the left with areas of small airways obstruction and both lower lobes. T his is similar when compared to prior exam. The liver is unremarkable. The gallbladder is distended. Adrenal glands are unremarkable. There is a 0.2 cm central nonobstructing right renal stone. The left kidney is unremarkable. The spleen is unremarkable. The pancreas is unremarkable. The stomach is distended. The small bowel demonstrates multiple air-fluid levels with enlarged loops of bowel measuring up to 4.5 cm. This dilated fluid-filled loops of bowel extends throughout the ab domen and pelvis. There are few is decompressed loops of small bowel distally with no definitive tra nsition point. The colon is decompressed. There is minimal free fluid knees left pelvis. Prostate is normal. Urinary bladder is nondistended. There is no free air or lymphadenopathy. There is mini mal free fluid in the pelvis. The osseous structures demonstrate degenerative disease. IMPRESSION: 1. Multiple dilated loops of small bowel with air-fluid levels and no definitive obstruction. The f indings may represent a non-visualized obstruction versus severe ileus or enteritis. 2. Bilateral lower lobe small airways thickening with scattered mucus plugging and inflammation/infe ction suggestive of developing pneumonia. 3. Nonobstructing right renal stone. Number forehead minimal nonspecific free fluid in the pelvis. All CT scans are performed using dose optimization techniques as appropriate to the performed exam an d include at least one of the following: Automated exposure control, adjustment of the mA and/or kV according t o size, and the use of iterative reconstruction technique.
[2022-06-17] MEDS ORDERED: ROCEPHIN 1 GM/50 ML D5W 1 GM/50 ML BAG IV ONE (09:01)
[2022-06-17] MEDS ORDERED: ZOFRAN 4 MG/2 ML IVP PRN (10:01)
[2022-06-17] MEDS ORDERED: DUONEB NEB PRN (10:06)
[2022-06-17] MEDS: SODIUM CHLORIDE 1,000 ML IV SCH (10:23)
[2022-06-17 11:14] VITALS: BMI 20.6
[2022-06-17] MEDS ORDERED: ZANAFLEX PO PRN (11:53)
[2022-06-17] MEDS: FLAGYL 500 MG/100 ML 500 MG/100 ML BAG IV SCH ×3 (12:28→20:36)
[2022-06-17] MEDS: SOLU-MEDROL 40 MG IVP SCH ×2 (12:44→20:40)
[2022-06-17] MEDS: DILAUDID 1 MG/ML SYRINGE IVP PRN (12:44)
[2022-06-17] MEDS ORDERED: ATARAX PO PRN (13:01)
[2022-06-17] MEDS: LEVAQUIN 750 MG/150 ML D5W 750 MG/150 ML BAG IV SCH (14:04)
[2022-06-17] MEDS ORDERED: NON-FORMULARY MEDICATION (Hydroxyzine Hcl 10 mg tablet) PO SCH (15:00)
[2022-06-17] MEDS ORDERED: DESYREL PO SCH (17:00)
[2022-06-17] MEDS: CYMBALTA PO SCH (20:36)
[2022-06-17] MEDS: MYLICON PO SCH (20:36)
[2022-06-17] MEDS ORDERED: SIMETHICONE 125 MG PO SCH (21:00)
[2022-06-17] MEDS ORDERED: BENADRYL PO SCH (21:00)
[2022-06-18] MEDS: DILAUDID 1 MG/ML SYRINGE IVP PRN ×2 (02:02→06:15)
[2022-06-18] MEDS: SODIUM CHLORIDE 1,000 ML IV SCH (02:03)
[2022-06-18] MEDS: SOLU-MEDROL 40 MG IVP SCH ×2 (04:44→14:15)
[2022-06-18] MEDS: FLAGYL 500 MG/100 ML 500 MG/100 ML BAG IV SCH ×2 (05:05→13:39)
[2022-06-18 05:14] LABS: BASOPHILS % (AUTO) 0.2 % (0.0-3.0); HEMATOCRIT 37.4 % (42.0-52.0); HEMOGLOBIN 12.3 g/dl (14.0-18.0); IMMATURE GRANULOCYTE % (AUTO) 0.4 % (0.0-5.0); LYMPHOCYTES # (AUTO) 1.1 K/uL (0.60-3.4); LYMPHOCYTES % (AUTO) 9.7 (10.0-50.0); MEAN CORPUSCULAR HEMOGLOBIN 30.1 pg (27.0-31.0); MEAN CORPUSCULAR HGB CONC 32.9 (31.8-35.4); MEAN CORPUSCULAR VOLUME 91.4 fl (80.0-94.0); MONOCYTES # (AUTO) 0.5 K/uL (0.4-2.0); MONOCYTES % (AUTO) 4.9 (0-10); NEUTROPHILS # (AUTO) 9.2 K/ul (2.0-6.9); NEUTROPHILS % (AUTO) 84.8 % (42.2-75.2); PLATELET COUNT 232 10^3/uL (140-440); RDW COEFFICIENT OF VARIATION 12.4 % (11.6-14.8); RED BLOOD COUNT 4.09 10^6/ul (4.70-6.10); WHITE BLOOD COUNT 10.88 K/ul (4.2-10.2)
[2022-06-18 05:29] LABS: BLOOD UREA NITROGEN 19.2 mg/dL (9-20); CALCIUM 9.59 mg/dL (8.4-10.2); CARBON DIOXIDE 27.2 mmol/L (22-30.0); CHLORIDE 103.5 mmol/L (98-107); CREATININE 0.78 mg/dL (0.60-1.10); GLUCOSE 142.9 mg/dL (74-106); POTASSIUM 4.44 mmol/L (3.5-5.1); SODIUM 137.6 mmol/L (134.5-145)
[2022-06-18] MEDS: MYLICON PO SCH (08:50)
[2022-06-18] MEDS: CYMBALTA PO SCH (08:50)
[2022-06-18] MEDS: LEVAQUIN 750 MG/150 ML D5W 750 MG/150 ML BAG IV SCH (08:51)
[2022-06-18] MEDS ORDERED: MESALAMINE 0.375 GM PO SCH (09:00)
[2022-06-18] MEDS ORDERED: LOVENOX SUBCUT SCH (09:00)
[2022-06-18] MEDS ORDERED: PERCOCET 5-325 PO PRN (10:50)
[2022-06-18 14:14] VITALS: BP 129/74; TEMP 98.3
[2022-06-24] MEDS ORDERED: DRISDOL PO SCH (09:00)
[2022-06-30] MEDS ORDERED: ADALIMUMAB 20 MG/0.4 ML SUBCUT SCH (09:00)
--- NOTE | 2022-07-04 14:15 | PCM.DC ---
Final Diagnosis: Enteritis, acute, resolving. COPD exacerbation, resolving. Date of admit 06/17/22 Date of discharge 06/18/22 Physical Exam Appearance: Well-appearing Ill-appearing: None Pain Distress: None Eyes: FRANSISCA ENT: Oropharynx normal Neck: Supple Respiratory: Airway patent Cardiovascular: RRR and Pulses normal GI/: Soft and Nontender Musculoskeletal: Normal strength and ROM intact Skin: Warm and Dry Neurological: Motor intact Psychiatric: Affect appropriate and Mood appropriate Reason for Hospitalization: Enteritis, possible UC flare, and COPD exacerbation. Prognosis/Condition at Discharge: Good, stable. Medications at Discharge: Medications at Discharge (Home Meds & RX) mesalamine 0.375 gram capsule,extended release 24 hr (Apriso) 4 cap PO DAILY 01/15/19 adalimumab 20 mg/0.4 mL subcutaneous syringe kit (Humira) 40 mg SQ DIRECTED 03/27/19 simethicone 125 mg tablet 125 mg PO BID 04/21/19 tizanidine 4 mg tablet 4 mg PO DAILY PRN muscle spasticity #30 tabs 10/09/20 diphenhydramine HCl 50 mg capsule 50 mg PO BEDTIME 11/07/21 ergocalciferol (vitamin D2) 1,250 mcg (50,000 unit) capsule 1,250 mcg PO WEEKLY 11/07/21 duloxetine 60 mg capsule,delayed release 60 mg PO BID 06/17/22 hydroxyzine HCl 10 mg tablet 10 mg PO TID 06/17/22 trazodone 50 mg tablet 50 mg PO QPM 06/17/22 ondansetron 8 mg disintegrating tablet 8 mg PO Q8H PRN nausea and vomiting #10 tabs 06/18/22 oxycodone-acetaminophen 5 mg-325 mg tablet (Percocet) 1 tab PO Q6H PRN pain #10 tabs 06/18/22 Lab/Diagnostics: Laboratory Tests 06/17/22 06/17/22 06/17/22 06:50 06:50 06:50 WBC 12.13 H RBC 4.97 Hgb 14.7 Hct 44.6 MCV 89.7 MCH 29.6 MCHC 33.0 RDW Coeff of Manan 12.7 Plt Count 267 Immature Gran % (Auto) 0.4 Neut % (Auto) 77.5 H Lymph % (Auto) 14.6 [place] % (Auto) 6.7 Eos % (Auto) 0.6 Baso % (Auto) 0.2 Neut # (Auto) 9.4 H Lymph # (Auto) 1.8 [place] # (Auto) 0.8 Eos # (Auto) 0.1 Baso # (Auto) 0.0 Immature Gran # (Auto) 0.1 Puncture Site Base Excess O2 Saturation ABG pH ABG pCO2 ABG pO2 ABG HCO3 ABG Total CO2 Hemoglobin Oxyhemoglobin Carboxyhemoglobin Total Hemoglobin FiO2 % Sodium 139.2 Potassium 4.11 Chloride 101.7 Carbon Dioxide 25.3 Anion Gap 16.31 BUN 18.0 Creatinine 1.22 H Estimated GFR (MDRD) 63.00 BUN/Creatinine Ratio 14.75 Glucose 179.4 H Calcium 10.71 H Total Bilirubin 0.86 AST 55.0 ALT 21.4 Alkaline Phosphatase 79.8 Troponin I < 0.012 Total Protein 9.78 H Albumin 5.11 H Globulin 4.67 Albumin/Globulin Ratio 1.09 Urine Color Urine Clarity Urine pH Ur Specific [place] Urine Protein Urine Glucose (UA) Urine Ketones Urine Blood Urine Nitrite Urine Bilirubin Urine Urobilinogen Ur Leukocyte Esterase Ur Squamous Epith Cells Urine Mucus Influ A Molecular Assay Influ B Molecular Assay SARS CoV-2 RNA Rapid MANDO 06/17/22 06/17/22 06/17/22 07:00 07:00 07:10 WBC RBC Hgb Hct MCV MCH MCHC RDW Coeff of Manan Plt Count Immature Gran % (Auto) Neut % (Auto) Lymph % (Auto) [place] % (Auto) Eos % (Auto) Baso % (Auto) Neut # (Auto) Lymph # (Auto) [place] # (Auto) Eos # (Auto) Baso # (Auto) Immature Gran # (Auto) Puncture Site Base Excess O2 Saturation ABG pH ABG pCO2 ABG pO2 ABG HCO3 ABG Total CO2 Hemoglobin Oxyhemoglobin Carboxyhemoglobin Total Hemoglobin FiO2 % Sodium Potassium Chloride Carbon Dioxide Anion Gap BUN Creatinine Estimated GFR (MDRD) BUN/Creatinine Ratio Glucose Calcium Total Bilirubin AST ALT Alkaline Phosphatase Troponin I Total Protein Albumin Globulin Albumin/Globulin Ratio Urine Color Dark Urine Clarity Clear Urine pH 6.0 Ur Specific [place] >=1.030 Urine Protein 2+ H Urine Glucose (UA) Negative Urine Ketones Negative Urine Blood Negative Urine Nitrite Negative Urine Bilirubin 1+ H Urine Urobilinogen 1.0 H Ur Leukocyte Esterase Negative Ur Squamous Epith Cells Not present Urine Mucus 2+ Influ A Molecular Assay Negative by naat Influ B Molecular Assay Negative by naat SARS CoV-2 RNA Rapid MANDO Negative 06/17/22 06/18/22 06/18/22 07:36 04:52 04:52 WBC 10.88 H RBC 4.09 L Hgb 12.3 L Hct 37.4 L D MCV 91.4 MCH 30.1 MCHC 32.9 RDW Coeff of Manan 12.4 Plt Count 232 Immature Gran % (Auto) 0.4 Neut % (Auto) 84.8 H Lymph % (Auto) 9.7 L [place] % (Auto) 4.9 Eos % (Auto) 0.0 Baso % (Auto) 0.2 Neut # (Auto) 9.2 H Lymph # (Auto) 1.1 [place] # (Auto) 0.5 Eos # (Auto) 0.0 Baso # (Auto) 0.0 Immature Gran # (Auto) 0.0 Puncture Site Rbrach Base Excess 0.9 O2 Saturation 82.6 L ABG pH 7.44 ABG pCO2 37.0 ABG pO2 45.0 L* ABG HCO3 25.1 ABG Total CO2 26.2 H Hemoglobin 1.3 Oxyhemoglobin 81.7 L Carboxyhemoglobin 2.1 H Total Hemoglobin 14.4 FiO2 % 21.0 Sodium 137.6 Potassium 4.44 Chloride 103.5 Carbon Dioxide 27.2 Anion Gap 11.34 BUN 19.2 Creatinine 0.78 Estimated GFR (MDRD) 106.00 BUN/Creatinine Ratio 24.61 Glucose 142.9 H Calcium 9.59 Total Bilirubin AST ALT Alkaline Phosphatase Troponin I Total Protein Albumin Globulin Albumin/Globulin Ratio Urine Color Urine Clarity Urine pH Ur Specific [place] Urine Protein Urine Glucose (UA) Urine Ketones Urine Blood Urine Nitrite Urine Bilirubin Urine Urobilinogen Ur Leukocyte Esterase Ur Squamous Epith Cells Urine Mucus Influ A Molecular Assay Influ B Molecular Assay SARS CoV-2 RNA Rapid MANDO EXAM: CT abdomen pelvis with contrast HISTORY: Left lower quadrant pain with history of ulcerative colitis COMPARISON: CT abdomen pelvis 11/07/2021 and priors TECHNIQUE: Serial axial images of the abdomen pelvis were performed after 100 mL is of Omnipaque IV contrast was administered. These were obtained from the lung bases through the inferior pelvis. FINDINGS: The lung bases demonstrate scattered ground-glass with small airways thickening in the lower lobes most pronounced on the left with areas of small airways obstruction and both lower lobes. This is similar when compared to prior exam. The liver is unremarkable. The gallbladder is distended. Adrenal glands are unremarkable. There is a 0.2 cm central nonobstructing right renal stone. The left kidney is unremarkable. The spleen is unremarkable. The pancreas is unremarkable. The stomach is distended. The small bowel demonstrates multiple air-fluid levels with enlarged loops of bowel measuring up to 4.5 cm. This dilated fluid- filled loops of bowel extends throughout the abdomen and pelvis. There are few is decompressed loops of small bowel distally with no definitive transition point. The colon is decompressed. There is minimal free fluid knees left pelvis. Prostate is normal. Urinary bladder is nondistended. There is no free air or lymphadenopathy. There is minimal free fluid in the pelvis. The osseous structures demonstrate degenerative disease. IMPRESSION: 1. Multiple dilated loops of small bowel with air-fluid levels and no definitive obstruction. The findings may represent a non-visualized obstruction versus severe ileus or enteritis. 2. Bilateral lower lobe small airways thickening with scattered mucus plugging and inflammation/infection suggestive of developing pneumonia. 3. Nonobstructing right renal stone. Number forehead minimal nonspecific free fluid in the pelvis. All CT scans are performed using dose optimization techniques as appropriate to the performed exam and include at least one of the following: Automated exposure control, adjustment of the mA and/or kV according to size, and the use of iterative reconstruction technique. Education Provided to Patient and Family: Per RN Follow-ups: PCP Discharge Disposition: Home Hospital Course: Patient quickly improved with GI and resp sx and asked to be d/c home. Plan: Home. F/U PCP. Total time spent in [id number] exam and the additional documentation was 30 minutes.
== END 2022-06-18 15:25 | disposition home or self-care (01) ==
LOC: ED 06:09 → MEDSURG A 06:09
PROVIDERS: ADMIT Emergency Medicine; ATTEND Emergency Medicine
DX: Z87.19 Personal history of other diseases of the digestive system; Z51.81 Encounter for therapeutic drug level monitoring; M54.9 Dorsalgia, unspecified; F32.A Depression, unspecified; Z87.891 Personal history of nicotine dependence; K52.9 Noninfective gastroenteritis and colitis, unspecified; J44.1 Chronic obstructive pulmonary disease with (acute) exacerbation; R53.1 Weakness; Z20.822 Contact with and (suspected) exposure to COVID-19; R63.0 Anorexia; J44.9 Chronic obstructive pulmonary disease, unspecified; Z79.899 Other long term (current) drug therapy